=== PATIENT | female | born 1995 | race Caucasian/White ===

== ENCOUNTER 2022-04-10 19:52 | Emergency (ER) | payer MEDICAID, SELFPAY ==
[2022-04-10 20:03] VITALS: BP 109/79; PULSE 123; RESP 17; TEMP 37.4; O2SAT 97; BMI 30.4
[2022-04-10 20:17] LABS: Influenza A by IFA positive (Negative); Influenza B by IFA negative (Negative)
--- NOTE | 2022-04-10 20:23 | XRR_ITS ---
PROCEDURE INFORMATION: Exam: XR Chest Exam date and time: 04/10/2022 8:28 PM Age: 27 years old Clinical indication: Fever TECHNIQUE: Imaging protocol: Radiologic exam of the chest. Views: 1 view. COMPARISON: No relevant prior studies available. FINDINGS: Lungs: There is a 8 mm nodular opacity in the right mid lung, possibly calcified granuloma from its density. No focal consolidation is identified. There is no pulmonary vascular congestion. Pleural spaces: Unremarkable. No pleural effusion. No pneumothorax. Heart/Mediastinum: Heart is within normal limits. Bones/joints: Unremarkable. XR/XR chest 1V portable [id number] IMPRESSION: Question of small pulmonary nodule or granuloma in the right lung. No acute infiltrate.
[2022-04-10 20:30] LABS: SARS Covid-2 Antigen negative (Negative)
--- NOTE | 2022-04-10 20:39 | W.ED.GENADLT ---
HPI - General Adult General: Chief complaint: General Medical Stated complaint: Cough\Fever Time Seen by Provider: 04/10/22 20:18 Source: patient Mode of arrival: ambulatory Limitations: no limitations History of Present Illness: 27-year-old female states over the last 3 days she been having cough congestion along with fevers and body aches. She denies any shortness of breath denies any worsening proving factors. She had no vomiting or diarrhea denies any known sick contacts. Associated symptoms: Deny chest pain, headache(s), nausea, rash or vomiting Review of Systems Const: Reports: fever(s), chills and body aches Eyes: Denies: blurry vision or eye discomfort ENMT: Denies: throat pain or dental pain Card: Denies: chest pain Resp: Reports: non-productive cough GI: Denies: abdominal pain, nausea, vomiting or diarrhea : Denies: dysuria Musc: Denies: neck pain or back pain Skin/Breast: Denies: rash Neuro: Denies: headache(s) Psych: Denies: depression Moise/Lymph: Denies: easy bruising All/Imm: Denies: urticaria PFSH ED PFSH: Medical History (Updated 04/10/22 @ 20:41 by Peña Aguilar MD) No pertinent past medical history Social History (Updated 04/10/22 @ 20:41 by Peña Aguilar MD) Substance/Drug Use: never Female Reproductive History: Date of last menstrual period: 04/10/22 Physical Exam Const: COMMON NORMALS: no acute distress, patient oriented x3 and healthy appearing HENMT: COMMON NORMALS: normocephalic and atraumatic HEAD & SCALP: normocephalic and atraumatic Eye: COMMON NORMALS: Equal, round and reactive pupils present and EOMs intact bilaterally PUPIL: Yes Equal, round and reactive pupils present Neck/C-Spine: COMMON NORMALS: full ROM and supple Chest: COMMONS NORMALS: normal inspection of the chest and normal palpation of entire chest wall Resp: COMMON NORMALS: normal respiratory effort, No retractions, No use of accessory muscles and clear to auscultation bilaterally AUSCULTATION: clear to auscultation bilaterally Cardio: COMMON NORMALS: regular rate, regular rhythm and No murmurs present (Cardio) RATE: regular rate RHYTHM: regular rhythm GI: COMMON NORMALS: Normal to inspection, nondistended, normoactive bowel sounds present, Soft to palpation, non-tender and no masses PALPATION: Yes Soft to palpation Extremity: COMMON NORMALS: normal to inspection and full ROM Neuro: COMMON NORMALS: patient oriented x3, moves all extremities and no focal motor deficits Psych: COMMON NORMALS: mental status grossly normal, Normal thought process present and cooperative THOUGHT PROCESS: Normal thought process present Skin: COMMON NORMALS: no rashes or lesions noted and no wounds GENERAL SKIN EXAM: no rashes or lesions noted Course Vital Signs: Vital signs: Vital Signs Temperature 99.4 F 04/10/22 20:03 Pulse Rate 123 H 04/10/22 20:03 Respiratory Rate 17 04/10/22 20:03 Blood Pressure 109/79 04/10/22 20:03 Pulse Oximetry 97 04/10/22 20:03 Oxygen Delivery Me thod 04/10/22 20:03 MDM - General Adult Medical Decision Making Patient presents with cough along with fever and body aches she is positive for flu a likely causing her symptoms x-ray shows no pneumonia she is well-appearing here she is stable for discharge she is to follow-up with PCP and return if worsening. Lab Data Laboratory Results Influenza Type A Ag positive (Negative) 04/10/22 20:08 Influenza Type B Ag negative (Negative) 04/10/22 20:08 SARS-CoV-2 Ag (Rapid) negative (Negative) 04/10/22 20:08 Discharge Plan Discharge Patient Disposition: Home Clinical Impression: Influenza A Condition: Stable Prescriptions: New oseltamivir [Tamiflu] 75 mg capsule 75 mg PO BID 5 Days Qty: 10 0RF Discharge Orders: Discharge ED (Routine); Ordered 04/10/22 Ordered By: Peña Aguilar Discharge Diet: Advance as tolerated Discharge Activity: Resume usual activity Patient Instructions: Influenza (ED) Coding Level of Care Code ED Twister Frame Tender for Doni Cazares
[2022-04-10] MEDS: acetaminophen 500 mg Tablet 1000 MG PO (20:48)
== END 2022-04-10 20:56 | disposition home or self-care (01) ==
PROVIDERS: Emergency Provider Emergency Medicine
DX: J10.1 Influenza due to other identified influenza virus with other respiratory manifestations (principal); Z20.822 Contact with and (suspected) exposure to COVID-19
CPT/HCPCS: 71045; 87426; 87804; 99283

== ENCOUNTER 2022-04-20 02:27 | Emergency (ER) | payer MEDICAID, SELFPAY ==
[2022-04-20 02:31] VITALS: BP 93/62; PULSE 117; RESP 18; TEMP 37.1; O2SAT 97; BMI 30.6
[2022-04-20 02:52] VITALS: BP 106/78; PULSE 98; RESP 18; O2SAT 97
--- NOTE | 2022-04-20 02:54 | XRR_ITS ---
PROCEDURE INFORMATION: Exam: XR Chest Exam date and time: 04/20/2022 2:58 AM Age: 27 years old Clinical indication: Patient HX: Diagnosed with flu one week ago. C/O of persistent dry cough. ; Additional info: Left-sided chest pain cough TECHNIQUE: Imaging protocol: Radiologic exam of the chest. Views: 1 view. COMPARISON: CR (CHEST, ) 04/10/2022 8:28 PM FINDINGS: Lungs: Normal lung volumes. No interstitial or airspace opacities. Unchanged right mid lung zone peripheral 1 x 1 cm nodule is seen, which may represent a granuloma. Chest CT may be performed for complete assessment. Pleural spaces: No pleural effusion. No pneumothorax. Heart/Mediastinum: Normal heart size. Normal mediastinal contour. Midline trachea. Bones/joints: No acute abnormalities. XR/XR chest 1V portable [id number] IMPRESSION: 1. No confluent infiltrates in the lungs. 2. Unchanged right mid lung zone peripheral 1 x 1 cm nodule, which may represent a granuloma. Chest CT may be performed for complete assessment.
--- NOTE | 2022-04-20 02:58 | ED_ITS ---
HPI - URI/Sore Throat General: Chief Complaint: General Medical Stated Complaint: Cough, Congestion, Time Seen by Provider: 04/20/22 02:38 Source: patient History of Present Illness: 27-year-old female diagnosed with the flu 7 days ago she was prescribed Tamiflu, but was unable to fill it due to unavailability. She has been taking some cough medicine without much improvement. She has coughing fits that last several minutes at a time. Cough is mostly dry. She is experiencing some left-sided chest discomfort now. No continued fever. Some continued sore throat. MD elicited complaint: cough, sore throat and rhinorrhea Pertinent past history: other Onset (ago): day(s) Consistency: constant Severity: moderate Description of mucous: clear Exacerbating factors: deep breaths Relieving factors: OTC cold medicine Associated symptoms: Reports chest pain (left sided with cough), congestion, cough, nausea, rhinorrhea and sore throat; Deny abdominal pain, change in voice, fever(s), headache(s), sinus pain or vomiting Treatments prior to arrival: cold medicine Review of Systems Const: Denies: fever(s) Eyes: Denies: change in vision ENMT: Reports: throat pain; Denies: sinus pain Card: Reports: chest pain (left sided with cough) Resp: Reports: dyspnea and non-productive cough GI: Reports: nausea; Denies: abdominal pain or vomiting Neuro: Denies: headache(s) PFS ED PFSH: Medical History No pertinent past medical history Female Reproductive History: Date of last menstrual period: 04/01/22 Physical Exam Const: COMMON NORMALS: no acute distress GENERAL APPEARANCE: cooperative; not ill appearing and not frail appearing HENMT: COMMON NORMALS: normocephalic, atraumatic, TM's normal bilaterally and Normal external nose present HEAD & SCALP: normocephalic and atraumatic FACE & SINUS: normal facial exam and face symmetric NOSE: Normal external nose present TYMPANIC MEMBRANE: TM's normal bilaterally THROAT: posterior oropharynx abnormal edema and erythema; no cobblstoning and no exudates Eye: COMMON NORMALS: Equal, round and reactive pupils present and EOMs intact bilaterally PUPIL: Yes Equal, round and reactive pupils present Neck/C-Spine: GENERAL: Yes trachea midline Chest: CHEST: Yes Symmetrical chest wall rise Resp: COMMON NORMALS: normal respiratory effort, No retractions, No use of accessory muscles and clear to auscultation bilaterally EFFORT & INSPECTION: Yes Actively coughing AUSCULTATION: clear to auscultation bilaterally Cardio: COMMON NORMALS: regular rate and regular rhythm RATE: regular rate RHYTHM: regular rhythm GI: COMMON NORMALS: Normal to inspection, nondistended, normoactive bowel sounds present Extremity: COMMON NORMALS: no pedal edema Neuro: NILSON COMA SCALE: document GCS findings [place] coma scale eye opening: Spontaneous [place] coma scale verbal response: Orientated [place] coma scale motor response: Obey commands [place] coma scale total score: 15 SENSORY EXAM: Yes extremities (intact) Psych: COMMON NORMALS: speech normal SPEECH: Yes normal speech Skin: COMMON NORMALS: no rashes or lesions noted GENERAL SKIN EXAM: no rashes or lesions noted Course Vital Signs: Vital signs: Vital Signs Temperature 98.6 F 04/20/22 04:07 Pulse Rate 99 04/20/22 04:07 Respiratory Rate 16 04/20/22 04:07 Blood Pressure 100/63 04/20/22 04:07 Pulse Oximetry 96 04/20/22 04:07 Oxygen Delivery Me thod 04/20/22 02:52 MDM - URI/Sore Throat Medical Decision Making Chest x-ray is clear. She is afebrile here. She experiences frequent and prolonged shallow coughing spells, which could be related to bronchitis although more likely upper airway irritation versus a more functional cause. She will be prescribed codeine guaifenesin, as well as 48 hours of chlorpromazine for cough suppression. She is given dexamethasone here for airway irritation. She is also dispensed an inhaler. Discharge Plan Discharge Patient Disposition: Home Clinical Impression: Upper respiratory infection, Acute bronchitis Condition: Stable Prescriptions: New codeine-guaifenesin 10-100 mg/5 mL liquid 5 ml PO Q4H PRN (Reason: cough) Qty: 120 0RF chlorpromazine 25 mg tablet 25 mg PO TID Qty: 10 0RF Discharge Orders: Discharge ED (Routine); Ordered 04/20/22 Ordered By: Wade Eagle Patient Instructions: Upper Respiratory Infection (ED), Acute Bronchitis (ED) Activity Restrictions/Additional Instructions: You may take the cough syrup you are prescribed as needed for cough. Take the chlorpromazine you were prescribed schedule III times a day for the next 48 hours. It will help suppress your cough as well. Do not take your first doses while working until you know how it will affect you. The steroid you were given should begin to work in 12 hours or so. It would last for 4 days. Return for worsening shortness of breath despite treatment. Return for any other concerning symptoms. Coding Level of Care Code ED Elastic Yarn Twister Helper for Doni Fwema Exam Comprehensive
[2022-04-20] MEDS: dexamethasone 4 mg Tablet 10 MG PO (03:03)
[2022-04-20] MEDS: guaiFENesin-codeine UDC 10 mL PO (03:03)
[2022-04-20] MEDS: albuterol 8 gm MDI 2 PUFF INHALATION (03:20)
[2022-04-20 03:40] VITALS: PULSE 80; RESP 16; O2SAT 96
[2022-04-20 04:07] VITALS: BP 100/63; PULSE 99; RESP 16; TEMP 37; O2SAT 96
== END 2022-04-20 04:10 | disposition home or self-care (01) ==
PROVIDERS: Emergency Provider Emergency Medicine
DX: J06.9 Acute upper respiratory infection, unspecified (principal); J20.9 Acute bronchitis, unspecified
CPT/HCPCS: 71045; 94640; 99283; J3535; J8540

== ENCOUNTER 2022-08-16 00:05 | Emergency (ER) | payer MEDICAID, SELFPAY ==
[2022-08-16 00:30] VITALS: BMI 30.1
[2022-08-16 00:32] VITALS: BP 114/74; PULSE 98; RESP 16; TEMP 36.7; O2SAT 96
--- NOTE | 2022-08-16 00:49 | ED_ITS ---
HPI - URI/Sore Throat General: Chief Complaint: Upper Respiratory Infection Stated Complaint: cough, congestion Time Seen by Provider: 08/16/22 00:14 History of Present Illness: Patient is in today for cough. She reports that over the past 3 weeks she has had an intermittent dry cough. She reports that she does not feel bad. She reports that occasionally she gets nasal congestion and drainage. She denies any fever, chills, nausea, vomiting. She reports that she had this a couple of months ago and it feels very similar to the bronchitis that she had after the flu. She denies any possibility of . Associated symptoms: Reports nasal congestion; Deny abdominal pain, chills, chest pain, fever(s), headache(s), nausea or vomiting Review of Systems Const: Denies: fever(s), chills or body aches Eyes: Denies: change in vision or blurry vision ENMT: Reports: nasal discharge and nasal congestion; Denies: throat pain Card: Denies: chest pain, palpitations, irregular heart rhythm, lightheadedness or syncope Resp: Reports: non-productive cough; Denies: dyspnea, productive cough or wheezing GI: Denies: abdominal pain, nausea or vomiting : Denies: flank pain, difficulty voiding, dysuria, urinary frequency, urinary urgency or urinary hesitancy Musc: Denies: neck pain or back pain Neuro: Denies: headache(s), numbness in extremities or weakness in extremities [facility] ED PFSH: Medical History No pertinent past medical history Female Reproductive History: Date of last menstrual period: 08/16/22 Physical Exam Const: COMMON NORMALS: no acute distress, patient oriented x3 and alert GENERAL APPEARANCE: cooperative ORIENTATION/CONSCIOUSNESS: Yes awake, Yes oriented to person, Yes oriented to place and Yes oriented to time HENMT: COMMON NORMALS: EAC's normal and TM's normal bilaterally EXTERNAL AUDITORY CANAL: EAC's normal TYMPANIC MEMBRANE: TM's normal bilaterally MOUTH: Normal oral and palatal mucosa present THROAT: posterior oropharynx normal and postnasal drainage Eye: COMMON NORMALS: Equal, round and reactive pupils present, EOMs intact bilaterally and conjunctivae normal GENERAL EYE: appearance normal, both eyes and all related structures ALIGNMENT: Yes alignment normal CONJUNCTIVA: Yes conjunctivae normal SCLERA: sclerae normal PUPIL: Yes Equal, round and reactive pupils present Neck/C-Spine: COMMON NORMALS: full ROM Resp: COMMON NORMALS: normal respiratory effort, No retractions, No use of accessory muscles and clear to auscultation bilaterally EFFORT & INSPECTION: Yes symmetric chest movement AUSCULTATION: clear to auscultation bilaterally Cardio: COMMON NORMALS: regular rate, regular rhythm, S1 normal heart sound present and S2 normal heart sound present RATE: regular rate RHYTHM: regular rhythm HEART SOUNDS: S1 normal heart sound present and S2 normal heart sound present GI: COMMON NORMALS: Normal to inspection, nondistended, normoactive bowel sounds present, Soft to palpation, non-tender, No hepatosplenomegaly present, no masses and no bruits INSPECTION: Yes normal to inspection PALPATION: Yes Soft to palpation and Yes No hepatosplenomegaly present : COMMON NORMALS: Yes no CVA tenderness BLADDER/KIDNEY EXAM: Yes no CVA tenderness Back/Pelvis: COMMON NORMALS: no CVA tenderness Neuro: COMMON NORMALS: patient oriented x3 SENSORIUM/ORIENTATION: Yes alert, Yes oriented to person, Yes oriented to place and Yes oriented to time Psych: COMMON NORMALS: cooperative Course Vital Signs: Vital signs: Vital Signs Temperature 98.0 F 08/16/22 00:32 Pulse Rate 98 08/16/22 00:32 Respiratory Rate 16 08/16/22 00:32 Blood Pressure 114/74 08/16/22 00:32 Pulse Oximetry 96 08/16/22 00:32 Oxygen Delivery Me thod 08/16/22 00:32 MDM - URI/Sore Throat Medical Decision Making Patient is in today for intermittent dry cough x3 weeks. Patient reports that she is having off-and-on nasal congestion and drainage. She denies any systemic symptoms including fever, chills, nausea, vomiting. The other ER doctor had ordered chest x-ray, COVID and flu testing while patient was in the waiting room. However; once I saw the patient I discussed those test with her and she does not wish to have all of that done today. I agree. Her exam is benign. Orders were canceled. Patient's physical exam is benign with the exception of moderate postnasal drainage. We will treat patient to cover for allergic rhinitis with steroid injection. Advised patient to use uibw-xat-yrbelip Claritin or Zyrtec with Flonase to help control postnasal drainage and nasal allergies. Patient verbalizes understanding and agreement with plan of care. All questions answered to satisfaction. Follow-up with primary care provider as needed. Return to the ER for new or worsening symptoms. Discharge Plan Discharge Patient Disposition: Home Clinical Impression: Allergic rhinitis, Cough Condition: Stable Prescriptions: No Action codeine-guaifenesin 10-100 mg/5 mL liquid 5 ml PO Q4H PRN (Reason: cough) Qty: 120 0RF chlorpromazine 25 mg tablet 25 mg PO TID Qty: 10 0RF Discharge Orders: Discharge ED (Routine); Ordered 08/16/22 Ordered By: Ching Emerson Discharge Diet: Usual diet Discharge Activity: Resume usual activity Patient Instructions: Allergies (ED), Postnasal Drip (DC) Activity Restrictions/Additional Instructions: I recommend taking kjyg-jdi-autizrk Claritin or Zyrtec to help control postnasal drainage. Steroid injection given today to help control allergic rhinitis which is feeding your cough. Make sure that you are drinking plenty of water and staying well-hydrated. Avoid smoking or being around secondhand smoke. Follow- up with primary care provider as needed. Return to the ER for any new or worsening symptoms. Coding Level of Care Code ED Power Superintendent for Doni Cazares
[2022-08-16] MEDS: methylPREDNISolone (DEPO) 40 mg/mL INJ 1 mL IM (01:34)
[2022-08-16] MEDS: dexamethasone 10 mg/mL INJ 4 MG IM (01:34)
[2022-08-16 02:20] VITALS: BP 111/70; PULSE 98; RESP 14; O2SAT 100
--- NOTE | 2022-08-27 13:42 | DCPLANNER ---
slots manager was triggered that patient does not have a primary care physician - patient will be establishing with Dr. Garcia at [facility]
== END 2022-08-16 01:50 | disposition home or self-care (01) ==
PROVIDERS: Emergency Provider Nurse Practitioner Family; PCP Family Medicine
DX: J30.9 Allergic rhinitis, unspecified (principal); R05.9 Cough, unspecified
CPT/HCPCS: 96372; 99284; J1030; J1100

== ENCOUNTER → 2022-12-03 10:30 | Outpatient (BNVA) | payer MEDICAID, SELFPAY | PROVIDERS: PCP Family Medicine; Visit Provider Obstetrics & Gynecology | DX: Z12.4 Encounter for screening for malignant neoplasm of cervix (principal) | CPT/HCPCS: 88175 ==

== ENCOUNTER → 2022-12-10 15:28 | Outpatient (BNVA) | payer MEDICAID, SELFPAY | PROVIDERS: PCP Family Medicine; Visit Provider Obstetrics & Gynecology | DX: Z30.9 Encounter for contraceptive management, unspecified (principal) | CPT/HCPCS: 81025 ==

== ENCOUNTER 2023-01-20 19:14 | Emergency (ER) | payer OTHER, MEDICAID, SELFPAY ==
[2023-01-20 19:35] VITALS: BP 99/70; PULSE 97; RESP 16; TEMP 36.9; O2SAT 97; BMI 32.9
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
[2023-01-20 20:47] VITALS: RESP 18
--- NOTE | 2023-01-23 09:49 | DCPLANNER ---
manager disaster recovery called patient due to no primary care physician - no answer at this time, a voicemail was left for patient to return case resolution specialist phone call.
== END 2023-01-20 20:47 | disposition home or self-care (01) ==
PROVIDERS: Emergency Provider Nurse Practitioner Family
DX: S16.1XXA Strain of muscle, fascia and tendon at neck level, initial encounter (principal); S50.01XA Contusion of right elbow, initial encounter; V53.5XXA Driver of pick-up truck or van injured in collision with car, pick-up truck or van in traffic accident, initial encounter
CPT/HCPCS: 71045; 72125; 73080; 73562; 99284

== ENCOUNTER 2024-03-08 18:08 | Emergency (ER) | payer MEDICAID, SELFPAY ==
[2024-03-08 18:16] VITALS: BP 106/73; PULSE 108; RESP 16; TEMP 37.1; O2SAT 98
[2024-03-08 18:33] LABS: Rapid Strep A Test Positive (Negative)
--- NOTE | 2024-03-08 18:54 | ED_ITS ---
HPI - URI/Sore Throat General: Chief Complaint: Upper Respiratory Infection Stated Complaint: Sore throat Time Seen by Provider: 03/08/24 18:39 Source: patient Mode of arrival: ambulatory Limitations: no limitations History of Present Illness: 28-year-old female who states that she h as had a sore throat for last 2 days and worsened today states her tonsils swelling she has noticed a pus pocket she has painful swallowing she rates her pain a 7 out of 10 currently she is able handle secretions denies any fever denies any cough. Associated symptoms: Deny abdominal pain, chills, chest pain, diarrhea, fever(s), headache(s), nausea or vomiting Related Data Home Medications Medication Instructions Recorded Confirmed bupropion HCl 300 mg 24 hr tablet, 300 mg PO QAM 04/20/23 04/20/23 extended release buspirone 10 mg tablet 10 mg PO TID 04/20/23 04/20/23 Previous Rx's Medication Instructions Recorded ibuprofen 600 mg tablet 600 mg PO Q8H PRN pain #60 tabs 04/20/23 amoxicillin 875 mg tablet 875 mg PO Q12H #14 tabs 03/08/24 Allergies Allergy/AdvReac Type Severity Reaction Status Date / Time No Known Allergies Allergy Verified 03/08/24 18:19 Review of Systems Const: Denies: fever(s), chills, body aches or change in appetite ENMT: Reports: throat pain; Denies: dental pain Card: Denies: chest pain Resp: Denies: dyspnea GI: Denies: abdominal pain, nausea, vomiting or diarrhea Musc: Denies: neck pain or back pain Skin/Breast: Denies: rash Neuro: Denies: headache(s) PFSH ED PFSH: Medical History No pertinent past medical history Family History Mother Hypertension Thyroid disease Diabetes Denies family history of Colon cancer Ovarian cancer Heart disease Hyperlipidemia Breast cancer Uterine cancer Stroke Social History Substance/Drug Use: never Physical Exam Const: COMMON NORMALS: no acute distress, patient oriented x3 and healthy appearing HENMT: COMMON NORMALS: normocephalic and atraumatic HEAD & SCALP: normocephalic and atraumatic OTHER: Tonsil liver erythema with pus pockets able to handle secretions no signs of peritonsillar abscess no uvular deviation Eye: COMMON NORMALS: conjunctivae normal CONJUNCTIVA: Yes conjunctivae normal Neck/C-Spine: COMMON NORMALS: full ROM and supple Chest: COMMONS NORMALS: normal inspection of the chest Resp: COMMON NORMALS: normal respiratory effort Cardio: COMMON NORMALS: regular rate RATE: regular rate Extremity: COMMON NORMALS: normal to inspection and full ROM Neuro: COMMON NORMALS: patient oriented x3, moves all extremities and no focal motor deficits Psych: COMMON NORMALS: mental status grossly normal, Normal thought process present and cooperative THOUGHT PROCESS: Normal thought process present Skin: COMMON NORMALS: no rashes or lesions noted and no wounds GENERAL SKIN EXAM: no rashes or lesions noted Course Vital Signs: Vital signs: Vital Signs Temperature 98.8 F 03/08/24 18:16 Pulse Rate 108 H 03/08/24 18:16 Respiratory Rate 16 03/08/24 18:16 Blood Pressure 106/73 03/08/24 18:16 Pulse Oximetry 98 03/08/24 18:16 MDM - URI/Sore Throat Medical Decision Making Patient presents here with strep throat did give her Decadron here we will prescribe antibiotics she is stable for discharge follow-up with PCP return if worsening. Medical Records I reviewed the patient's medical records. Lab Data I reviewed the patient's lab results. Laboratory Results Group A Strep Rapid Positive (Negative) H 03/08/24 18:20 No radiology studies performed this visit Discharge Plan Discharge Patient Disposition: Home Clinical Impression: Strep pharyngitis Condition: Stable Prescriptions: New amoxicillin 875 mg tablet 875 mg PO Q12H Qty: 14 0RF No Action buspirone 10 mg tablet 10 mg PO TID bupropion HCl 300 mg tablet extended release 24 hr 300 mg PO QAM ibuprofen 600 mg tablet 600 mg PO Q8H PRN (Reason: pain) Qty: 60 0RF Discharge Orders: Discharge ED (Routine); Ordered 03/08/24 Ordered By: Peña Aguilar Referrals: Joseph Archuleta MD [Primary Care Provider] - 4-7 days Discharge Diet: Advance as tolerated Discharge Activity: Resume usual activity Patient Instructions: Strep Throat (ED) Coding Level of Care Code ED Warning Analyst for Doni Cazares
[2024-03-08] MEDS: dexamethasone 10 mg/mL INJ IM (19:09)
[2024-03-08] MEDS: amoxicillin 500 mg Capsule PO (19:09)
[2024-03-08] MEDS: ketorolac 60 mg/2 mL INJ IM (19:12)
[2024-03-08 19:16] VITALS: BP 111/71; PULSE 96; O2SAT 99
[2024-03-08 19:39] VITALS: BP 113/73; PULSE 107; O2SAT 100
== END 2024-03-08 19:35 | disposition home or self-care (01) ==
PROVIDERS: Emergency Provider Emergency Medicine; PCP Family Medicine
DX: J02.0 Streptococcal pharyngitis (principal)
CPT/HCPCS: 87880; 96372; 99284; J1100; J1885

== ENCOUNTER 2024-04-03 17:34 | Emergency (ER) | payer MEDICAID, SELFPAY ==
[2024-04-03 17:47] VITALS: BP 114/80; PULSE 109; RESP 14; TEMP 37.1; O2SAT 98; BMI 31.8
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
--- NOTE | 2024-04-03 18:33 | USR_ITS ---
PROCEDURE INFORMATION: Exam: US Pelvis, Transvaginal, Non-Obstetric Exam date and time: 04/03/2024 7:31 PM Age: 29 years old Clinical indication: Pelvic pain; Prior surgery; Surgery date: 6+ months; Surgery type: Unsure of dates. Patient has had a c section; Additional info: Llq pain. TECHNIQUE: Imaging protocol: Real-time transvaginal pelvic (non-obstetric) ultrasound with image documentation. Transvaginal imaging was used for better evaluation of the endometrium, adnexa, and/or cervix. COMPARISON: No relevant prior studies available. FINDINGS: Uterus: Uterus is normal. Endometrial stripe is normal. Uterus measures 9.1 x 5.2 x 4.6 cm. Endometrial stripe measures 0.9 cm. Right ovary/adnexa: Normal. No mass. Normal ovarian blood flow on color Doppler. Right ovary measures 1.9 x 2.2 x 2.8 cm (5.9 mL). Left ovary/adnexa: Normal. No mass. Normal ovarian blood flow on color Doppler. Left ovary measures 2.8 x 2.2 x 2.8 cm (8.9 mL). Simple appearing cystic structure in the left ovary measuring up to 1.5 cm, likely a dominant follicle. Urinary bladder: Urinary bladder is limited. Intraperitoneal space: Trace free fluid in the cul-de-sac. US/US transvaginal [id number] IMPRESSION: No acute findings.
[2024-04-03 18:49] LABS: Bilirubin Urine Negative (Negative); Blood Urine Negative (Negative); Glucose Urine UA Negative (Normal); Ketones Urine Negative (Negative); Leukocyte Esterase Urine 2+ (Negative); Nitrate Urine Negative (Negative); Protein Urine Negative (Negative); Specific Gravity, Urine 1.024 (1.005-1.030); Urine Appearance Cloudy (CLEAR); Urine Color Yellow (Yellow)
[2024-04-03 18:54] LABS: Add Urine Microscopic? YES; Bacteria Urine 1+ /hpf; Hyaline Casts Urine 1.21 /lpf; RBC Urine 0-2 /hpf (0-2); Squamous Epithelial Cell Urine 21-50 /hpf (0-5)
[2024-04-03 19:23] LABS: Basophils % 0.2 %; Eosinophils # 0.2 10^3/uL (0.0-0.8); Eosinophils % 1.4 %; Hematocrit 42.1 % (36-47); Lymphocytes % 16.3 %; Mean Corpuscular HGB Conc 31.6 g/dL (30-55); Mean Corpuscular Hemoglobin 27.5 pg (27-33); Mean Corpuscular Volume 87.2 fl (85-98); Mean Platelet Volume 9.3 fL (7.4-10.4); Monocytes # 0.6 10^3/uL (0.2-0.9); Monocytes % 4.6 %; Neutrophils % 77.2 %; Nucleated Red Blood Cells % 0 %; Platelet Count 299 10^3/cmm (157-399); Red Blood Count 4.83 10^6/uL (3.85-5.65); Red Cell Distribution Width 13.3 % (12.1-15.1); White Blood Count 12.06 10^3/uL (3.29-11.43)
[2024-04-03 19:31] LABS: HCG, Serum Qual Negative (Negative)
[2024-04-03] MEDS: cefTRIAXone 1,000 mg SDV 1000 MG IVP (19:34)
[2024-04-03 19:35] VITALS: RESP 16; O2SAT 99
[2024-04-03] MEDS: ondansetron 2 mg/ML SDV 2 mL 4 MG IVP (19:35)
[2024-04-03] MEDS: morphine 4 mg/mL SDV 1 mL IVP (19:35)
[2024-04-03 19:39] LABS: Alanine Aminotransferase 13 U/L (0-33); Albumin Level 4.3 g/dL (3.5-5.2); Alkaline Phosphatase 77 U/L (35-105); Anion Gap 17.1 (5-19); Aspartate Amino Transferase 21 U/L (0-32); Blood Urea Nitrogen 10 mg/dL (6-20); C Reactive Protein 54.3 mg/L (0.0-4.9); Calcium 9.5 mg/dL (8.5-10.5); Carbon Dioxide 23 mmol/L (22-29); Chloride 103 mmol/L (98-107); Globulin 4.1 g/dL (1.3-4.6); Glomerular Filtration Rate 119.9 mL/min (90-130); Glucose 100 mg/dL (65-115); Lipase 29 U/L (13-60); Osmolality Calculated 287 mOsm/kg (285-295); Potassium 4.1 mmol/L (3.5-5.1); Sodium 139 mmol/L (136-145); Total Bilirubin 0.3 mg/dL (0.15-1.2); Total Protein 8.4 g/dL (6.6-8.7)
[2024-04-03 20:35] VITALS: BP 107/73; PULSE 101; RESP 16; O2SAT 98
== END 2024-04-03 20:34 | disposition home or self-care (01) ==
PROVIDERS: Emergency Provider Emergency Medicine; PCP Family Medicine
DX: N39.0 Urinary tract infection, site not specified (principal); Z87.891 Personal history of nicotine dependence
CPT/HCPCS: 76830; 80053; 81001; 83690; 84703; 85025; 86140; 96374; 96375; 99285; J0696; J2270; J2405

== ENCOUNTER 2024-09-23 17:33 | Emergency (ER) | payer MEDICAID, SELFPAY ==
[2024-09-23 17:43] VITALS: BP 118/72; PULSE 86; RESP 17; TEMP 36.8; O2SAT 99; BMI 33.1
[2024-09-23 19:36] LABS: Basophils % 0.3 %; Eosinophils # 0.2 10^3/uL (0.0-0.8); Eosinophils % 2.1 %; Hematocrit 39.1 % (36-47); Lymphocytes # 2.7 10^3/uL (0.8-4.8); Lymphocytes % 25.1 %; Mean Corpuscular HGB Conc 32.2 g/dL (30-55); Mean Corpuscular Hemoglobin 27.8 pg (27-33); Mean Corpuscular Volume 86.3 fl (85-98); Mean Platelet Volume 9.4 fL (7.4-10.4); Monocytes # 0.5 10^3/uL (0.2-0.9); Neutrophils # 7.18 10^3/uL (1.8-7.7); Neutrophils % 66.9 %; Nucleated Red Blood Cells % 0 %; Platelet Count 327 10^3/cmm (157-399); Red Blood Count 4.53 10^6/uL (3.85-5.65); Red Cell Distribution Width 14.5 % (12.1-15.1); White Blood Count 10.72 10^3/uL (3.29-11.43)
[2024-09-23 19:50] LABS: HCG, Serum Qual Positive (Negative)
[2024-09-23 19:54] LABS: Alanine Aminotransferase 18 U/L (0-33); Albumin Level 4.2 g/dL (3.5-5.2); Alkaline Phosphatase 51 U/L (35-105); Anion Gap 18.3 (5-19); Aspartate Amino Transferase 14 U/L (0-32); Blood Urea Nitrogen 6 mg/dL (6-20); Calcium 8.9 mg/dL (8.5-10.5); Carbon Dioxide 21 mmol/L (22-29); Chloride 104 mmol/L (98-107); Creatinine Clr Calc Pharmacy 174.4076; Glucose 83 mg/dL (65-115); Osmolality Calculated 287 mOsm/kg (285-295); Potassium 3.3 mmol/L (3.5-5.1); Sodium 140 mmol/L (136-145); Total Bilirubin 0.2 mg/dL (0.15-1.2); Total Protein 7.2 g/dL (6.6-8.7)
[2024-09-23 20:12] VITALS: BP 114/70; PULSE 84; RESP 16; O2SAT 96
--- NOTE | 2024-09-23 20:22 | USR_ITS ---
PROCEDURE INFORMATION: Exam: US First Trimester, Transabdominal and US , Transvaginal Exam date and time: 09/23/2024 9:27 PM Age: 29 years old Clinical indication: Lmp or gestational age (in weeks): 5w 3d by lmp; Antepartum complications; Bleeding; ; G5-p3-a1-l3 with spotting today; Additional info: Vaginal bleeding LABS AND CLINICAL REPORTS: Choriogonadotropin in serum (Serum HCG): 1484 mIU/mL Last menstrual period start date: 08/16/2024 Gestational age (Established): 5 w 3 d Estimated due date (Established): 05/23/2025 TECHNIQUE: Imaging protocol: Real-time transabdominal obstetrical ultrasound of the maternal pelvis and a first trimester , less than 14 weeks 0 days, with image documentation. Transvaginal imaging was used for better evaluation of the fetus, adnexa, and/or cervix. COMPARISON: US transvaginal [id number] 04/03/2024 7:31 PM FINDINGS: GESTATION: Gestation: Intrauterine gestation is visualized. No pole is visualized. No yolk sac is visualized. Embryo/ cardiac activity (BPM): Not visualized Extra-embryonic membranes/Placenta: Unremarkable. No subchorionic bleed. Amniotic/Chorionic fluid: Amniotic and extra-amniotic fluid are normal for gestational age. BIOMETRY: Gestational age (AUA): 5 w 1 d Estimated due date (AUA): 05/25/2025 Mean sac diameter: 0.42 cm. EGA (MSD) is 5 w 1 d MATERNAL: Uterus: Uterus measures 10.35 cm x 7.64 cm x 6.11 cm. 2.3 mm uterine fibroid. Cervix: Unremarkable. Endocervical canal is closed. Right ovary/adnexa: Right ovary measures 3 cm x 2.7 cm x 1.5 cm. Right ovarian volume is 6.4 mL. Left ovary/adnexa: Left ovary measures 1.9 cm x 2.1 cm x 1.4 cm. Left ovarian volume is 2.9 mL. Intraperitoneal space: No intraperitoneal free fluid. US/US OB <= 14 weeks fetus [id number] IMPRESSION: 1. Single intrauterine gestational sac, negative for pole. 2. Ultrasonographic age of 5 weeks 1 day. 3. 2.3 mm uterine fibroid.
[2024-09-23 21:00] VITALS: BP 96/69; PULSE 86; O2SAT 98
--- NOTE | 2024-09-23 21:00 | W.ED.GENADLT ---
HPI - General Adult General: Chief complaint: Vaginal Bleeding Stated complaint: 6 weeks preg, cramping, spotting Time Seen by Provider: 09/23/24 20:19 Source: patient History of Present Illness: Patient is a female who presents to the ED with cramping and vaginal spotting that started around 11:00-12:00 today. She reports the cramping as dull and achy, occurring intermittently. Patient's last menstrual period started August 16, making her approximately 5 weeks based on LMP. She denies severe pain, and states she is not experiencing significant pain currently. This is her fifth , with a history of three live births. Patient has not yet established care for this . Related Data Home Medications ?Medication ?Instructions ?Recorded ?Confirmed buspirone 10 mg tablet 10 mg PO TID 04/20/23 03/10/24 Previous Rx's ?Medication ?Instructions ?Recorded ibuprofen 600 mg tablet 600 mg PO Q8H PRN pain #60 tabs 04/20/23 aripiprazole 2 mg tablet (Abilify) 2 mg PO DAILY #30 tabs 05/03/24 bupropion HCl 300 mg 24 hr tablet, 300 mg PO QAM #30 tabs 05/03/24 extended release exenatide 5 mcg/dose (250 5 mcg (0.02 mL) SUBCUT BID #1.2 mL 05/14/24 mcg/mL)1.2 mL subcutaneous pen injector (Byetta) nitrofurantoin 100 mg PO BID 7 days #14 caps 09/23/24 monohydrate/macrocrystals 100 mg capsule (Macrobid) Allergies Allergy/AdvReac Type Severity Reaction Status Date / Time No Known Allergies Allergy Verified 05/03/24 09:26 [facility] ED PFS: Medical History (Updated 09/23/24 @ 22:11 by Demetri Bryan MD) Obesity (BMI 30.0-34.9) PTSD (post-traumatic stress disorder) Anxiety and depression No pertinent past medical history Family History (Updated 05/03/24 @ 09:37 by Natalie Dumont NP) Mother Hypertension Thyroid disease Diabetes Father Diabetes Brother Diabetes Denies family history of Colon cancer Ovarian cancer Heart disease Hyperlipidemia Breast cancer Uterine cancer Stroke Social History Smoking and tobacco/nicotine status: current every day tobacco/nicotine user Substance/Drug Use: never Female Reproductive History: Date of last menstrual period: 08/16/24 Physical Exam Const: COMMON NORMALS: no acute distress, average body habitus, alert and well nourished GENERAL APPEARANCE: cooperative ORIENTATION/CONSCIOUSNESS: Yes awake HENMT: COMMON NORMALS: normocephalic and atraumatic HEAD & SCALP: normocephalic and atraumatic Eye: COMMON NORMALS: conjunctivae normal CONJUNCTIVA: Yes conjunctivae normal Neck/C-Spine: GENERAL: Yes normal visual inspection Resp: COMMON NORMALS: normal respiratory effort, No retractions and No use of accessory muscles Cardio: COMMON NORMALS: regular rhythm and Peripheral pulses 2+ throughout RHYTHM: regular rhythm PERIPHERAL PULSES: Peripheral pulses 2+ throughout GI: COMMON NORMALS: Soft to palpation and non-tender PALPATION: Yes Soft to palpation Extremity: COMMON NORMALS: full ROM and no pedal edema Neuro: COMMON NORMALS: no focal motor deficits SENSORIUM/ORIENTATION: Yes alert Skin: COMMON NORMALS: no rashes or lesions noted GENERAL SKIN EXAM: no rashes or lesions noted Course Vital Signs: Vital signs: Vital Signs Temperature 98.2 F 09/23/24 17:43 Pulse Rate 86 09/23/24 21:00 Respiratory Rate 16 09/23/24 20:12 Blood Pressure 96/69 09/23/24 21:00 Pulse Oximetry 98 09/23/24 21:00 Oxygen Delivery Me thod Room Air 09/23/24 21:00 MDM - General Adult Medical Decision Making Review of Systems: Constitutional: Denies fever Gastrointestinal: Denies significant nausea or vomiting Genitourinary: Reports urinary frequency. Denies dysuria Musculoskeletal: Denies severe abdominal pain Medications: 1. vitamins 2. Iron supplements Allergies: No known drug allergies Past Medical History: No significant past medical history reported Past Surgical History: 1. Emergency in 06/2016 for breech presentation 2. Dental surgery 3. 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 Problem List: 1. First trimester vaginal bleeding, 2. Early , 3. Rh status pending Differential Diagnosis: 1. Threatened , 2. Normal early symptoms, 3. Ectopic , 4. Complete ED Course: Patient evaluated for early bleeding. Type and screen obtained to determine Rh status. Pelvic ultrasound ordered for further evaluation. Patient stable with mild symptoms. Assessment and Plan: 1. First Trimester Vaginal Bleeding: - Pelvic ultrasound to confirm intrauterine and assess viability - Type and screen to determine Rh status - Patient counseled about concerning symptoms to watch for 2. Early : - Advised to establish care - Continue current vitamins and iron supplements 3. Disposition: - Pending ultrasound results - Will require Rhogam if Rh negative Patient is Rh+. CBC and CMP are unremarkable. Beta-hCG is only 1500. Formal ultrasound shows appears to be a single intrauterine gestational sac. pole not identified yet. Ultrasonographic age of 5 weeks and 1 days. She does have a 2.3 cm uterine fibroid. Urinalysis with bacteriuria however I do suspect this is more contamination than anything. Given her status so I will go ahead and treat her with 5 days of Keflex. She was given p.o. potassium replacement for some hypokalemia. She will be discharged and recommended follow-up with her PCP/sign builder supervisor for further outpatient evaluation and repeat ultrasound. Lab Data I reviewed the patient's lab results. 09/23/24 19:23 09/23/24 19:23 Radiology Impressions Ultrasound 09/23/24 20:22 IMPRESSION: 1. Single intrauterine gestational sac, negative for pole. 2. Ultrasonographic age of 5 weeks 1 day. 3. 2.3 mm uterine fibroid. Laboratory Results WBC 10.72 10^3/uL (3.29-11.43) 09/23/24 19:23 RBC 4.53 10^6/uL (3.85-5.65) 09/23/24 19:23 Hgb 12.60 g/dL (11.27-16.99) 09/23/24 19:23 Hct 39.1 % (36-47) 09/23/24 19:23 MCV 86.3 fl (85-98) 09/23/24 19:23 MCH 27.8 pg (27-33) 09/23/24 19:23 MCHC 32.2 g/dL (30-55) 09/23/24 19:23 RDW 14.5 % (12.1-15.1) 09/23/24 19:23 Plt Count 327 10^3/cmm (157-399) 09/23/24 19:23 MPV 9.4 fL (7.4-10.4) 09/23/24 19:23 Neut % (Auto) 66.9 % 09/23/24 19:23 Lymph % (Auto) 25.1 % 09/23/24 19:23 [place] % (Auto) 5.0 % 09/23/24 19:23 Eos % (Auto) 2.1 % 09/23/24 19:23 Baso % (Auto) 0.3 % 09/23/24 19:23 Neut # (Auto) 7.18 10^3/uL (1.8-7.7) 09/23/24 19:23 Lymph # (Auto) 2.7 10^3/uL (0.8-4.8) 09/23/24 19:23 [place] # (Auto) 0.5 10^3/uL (0.2-0.9) 09/23/24 19:23 Eos # (Auto) 0.2 10^3/uL (0.0-0.8) 09/23/24 19:23 Baso # (Auto) 0.0 10^3/uL (0.0-0.1) 09/23/24 19:23 Nucleated RBC % (auto) 0 % 09/23/24 19:23 Nucleated RBCs # 0.0 /100WBC 09/23/24 19:23 Sodium 140 mmol/L (136-145) 09/23/24 19:23 Potassium 3.3 mmol/L (3.5-5.1) L 09/23/24 19:23 Chloride 104 mmol/L (98-107) 09/23/24 19:23 Carbon Dioxide 21 mmol/L (22-29) L 09/23/24 19:23 Anion Gap 18.3 (5-19) 09/23/24 19:23 BUN 6 mg/dL (6-20) 09/23/24 19:23 Creatinine 0.5 mg/dL (0.5-0.9) 09/23/24 19:23 GFR Calculation 148.0 mL/min (90-130) H 09/23/24 19:23 Glucose 83 mg/dL (65-115) 09/23/24 19:23 Calculated Osmolality 287 mOsm/kg (285-295) 09/23/24 19:23 Calcium 8.9 mg/dL (8.5-10.5) 09/23/24 19:23 Total Bilirubin 0.2 mg/dL (0.15-1.2) 09/23/24 19:23 AST 14 U/L (0-32) 09/23/24 19:23 ALT 18 U/L (0-33) 09/23/24 19:23 Alkaline Phosphatase 51 U/L (35-105) 09/23/24 19:23 Total Protein 7.2 g/dL (6.6-8.7) 09/23/24 19:23 Albumin 4.2 g/dL (3.5-5.2) 09/23/24 19:23 Globulin 3.0 g/dL (1.3-4.6) 09/23/24 19:23 HCG, Qual Positive (Negative) H 09/23/24 19:23 Ser , Semi-Qnt 1484.00 mIU/mL 09/23/24 19:23 Urine Color Yellow (Yellow) 09/23/24 19:16 Urine Appearance Cloudy (CLEAR) A 09/23/24 19:16 Urine pH 5.5 (5-7) 09/23/24 19:16 Ur Specific [place] 1.026 (1.005-1.030) 09/23/24 19:16 Urine Protein Negative (Negative) 09/23/24 19:16 Urine Glucose (UA) Negative (Normal) 09/23/24 19:16 Urine Ketones Negative (Negative) 09/23/24 19:16 Urine Blood Negative (Negative) 09/23/24 19:16 Urine Nitrate Negative (Negative) 09/23/24 19:16 Urine Bilirubin Negative (Negative) 09/23/24 19:16 Urine Urobilinogen 0.2 mg/dL (Negative) 09/23/24 19:16 Ur Leukocyte Esterase Negative (Negative) 09/23/24 19:16 Urine RBC 0-2 /hpf (0-2) 09/23/24 19:16 Urine WBC 0-5 /hpf (0-5) 09/23/24 19:16 Ur Squamous Epith Cells 21-50 /hpf (0-5) H 09/23/24 19:16 Amorphous Sediment Not Reportable 09/23/24 19:16 Urine Bacteria 4+ /hpf (NONE) H 09/23/24 19:16 Hyaline Casts 0.40 /lpf 09/23/24 19:16 Blood Type A Positive 09/23/24 20:35 Rho(D) Type Rh positive 09/23/24 20:35 All radiology interpretation(s) finalized by discharge Discharge Plan Discharge Patient Disposition: Home Clinical Impression: Threatened , Hypokalemia, Bacteriuria Condition: Stable Prescriptions: New nitrofurantoin monohyd/m-cryst [Macrobid] 100 mg capsule 100 mg PO BID 7 Days Qty: 14 0RF Rx Instructions: must administer with a meal/food No Action buspirone 10 mg tablet 10 mg PO TID ibuprofen 600 mg tablet 600 mg PO Q8H PRN (Reason: pain) Qty: 60 0RF aripiprazole [Abilify] 2 mg tablet 2 mg PO DAILY Qty: 30 0RF bupropion HCl 300 mg tablet extended release 24 hr 300 mg PO QAM Qty: 30 0RF exenatide [Byetta] 5 mcg/dose (250 mcg/mL) 1.2 mL pen injector 5 mcg SUBCUT BID Qty: 1.2 0RF Discharge Orders: Discharge ED (Routine); Ordered 09/23/24 Ordered By: Demetri Bryan Referrals: Natalie Dumont NP [Primary Care Provider, Family Practice] Discharge Diet: Usual diet Patient Instructions: Threatened Miscarriage (ED), Opioid Safety, Pain Management Activity Restrictions/Additional Instructions: Take all medication as directed. Follow-up with your sign builder supervisor for follow-up and repeat ultrasound in 2 to 3 weeks. Return for any new or worsening symptoms or any other concerns. Print Language: Tamazight Coding Level of Care Code ED Aging Department Supervisor for Doni Cazares
[2024-09-23] MEDS: potassium chloride ER 20 mEq Tablet 40 MEQ PO (21:20)
[2024-09-23 21:37] LABS: Bilirubin Urine Negative (Negative); Blood Urine Negative (Negative); Glucose Urine UA Negative (Normal); Ketones Urine Negative (Negative); Leukocyte Esterase Urine Negative (Negative); Nitrate Urine Negative (Negative); Protein Urine Negative (Negative); Specific Gravity, Urine 1.026 (1.005-1.030); Urine Appearance Cloudy (CLEAR); Urine Color Yellow (Yellow); Urobilinogen Urine 0.2 mg/dL (Negative); pH Urine 5.5 (5-7)
[2024-09-23 21:42] LABS: Add Urine Microscopic? YES; Bacteria Urine 4+ /hpf; RBC Urine 0-2 /hpf (0-2); Squamous Epithelial Cell Urine 21-50 /hpf (0-5); WBC Urine 0-5 /hpf (0-5)
[2024-09-23 22:21] VITALS: BP 101/64; PULSE 82; O2SAT 98
== END 2024-09-23 22:22 | disposition home or self-care (01) ==
PROVIDERS: Emergency Provider Student in an Organized Health Care Education/Training Program
DX: O20.0 Threatened abortion (principal); Z3A.01 Less than 8 weeks gestation of pregnancy; E87.6 Hypokalemia; R82.71 Bacteriuria; Z72.0 Tobacco use
CPT/HCPCS: 36415; 76801; 80053; 81001; 84702; 84703; 85025; 86900; 99284; J9999

== ENCOUNTER 2024-10-17 21:14 | Emergency (ER) | payer MEDICAID, SELFPAY ==
[2024-10-17 21:35] VITALS: BP 110/71; PULSE 111; RESP 16; TEMP 36.8; O2SAT 99
[2024-10-17 22:42] VITALS: BP 112/76; PULSE 86; RESP 16; O2SAT 97
[2024-10-17 22:42] LABS: Basophils % 0.4 %; Eosinophils # 0.2 10^3/uL (0.0-0.8); Eosinophils % 2.2 %; Hematocrit 38.4 % (36-47); Lymphocytes # 1.9 10^3/uL (0.8-4.8); Lymphocytes % 27.9 %; Mean Corpuscular HGB Conc 31.8 g/dL (30-55); Mean Corpuscular Hemoglobin 27.5 pg (27-33); Mean Corpuscular Volume 86.5 fl (85-98); Mean Platelet Volume 10.6 fL (7.4-10.4); Monocytes # 0.5 10^3/uL (0.2-0.9); Monocytes % 7.3 %; Neutrophils # 4.18 10^3/uL (1.8-7.7); Neutrophils % 61.9 %; Nucleated Red Blood Cells % 0 %; Platelet Count 241 10^3/cmm (157-399); Red Blood Count 4.44 10^6/uL (3.85-5.65); Red Cell Distribution Width 14.2 % (12.1-15.1); White Blood Count 6.75 10^3/uL (3.29-11.43)
[2024-10-17 23:05] LABS: Bilirubin Urine Negative (Negative); Blood Urine Negative (Negative); Glucose Urine UA Negative (Normal); Ketones Urine Negative (Negative); Leukocyte Esterase Urine Negative (Negative); Nitrate Urine Negative (Negative); Protein Urine Negative (Negative); Specific Gravity, Urine 1.028 (1.005-1.030); Urine Appearance Cloudy (CLEAR); Urine Color Yellow (Yellow); Urobilinogen Urine 0.2 mg/dL (Negative); pH Urine 5.5 (5-7)
[2024-10-17 23:08] LABS: Bacteria Urine 2+ /hpf; Hyaline Casts Urine 0.81 /lpf; Squamous Epithelial Cell Urine 21-50 /hpf (0-5)
[2024-10-17 23:20] LABS: Alanine Aminotransferase 18 U/L (0-33); Albumin Level 3.7 g/dL (3.5-5.2); Alkaline Phosphatase 53 U/L (35-105); Aspartate Amino Transferase 17 U/L (0-32); Blood Urea Nitrogen 9 mg/dL (6-20); Calcium 9.2 mg/dL (8.5-10.5); Carbon Dioxide 18 mmol/L (22-29); Chloride 106 mmol/L (98-107); Creatinine Clr Calc Pharmacy 175.8601; Globulin 3.1 g/dL (1.3-4.6); Glucose 105 mg/dL (65-115); Osmolality Calculated 285 mOsm/kg (285-295); Sodium 138 mmol/L (136-145); Total Bilirubin 0.2 mg/dL (0.15-1.2); Total Protein 6.8 g/dL (6.6-8.7)
[2024-10-17 23:29] LABS: Anion Gap 17.6 (5-19); Potassium 3.6 mmol/L (3.5-5.1)
[2024-10-17 23:46] LABS: UA Slide Review UA Slide Review Perf
[2024-10-18] VITALS: BP 108/75; PULSE 64; RESP 16; O2SAT 94
--- NOTE | 2024-10-18 00:13 | ED_ITS ---
HPI - Abdominal Pain 2 General: Chief Complaint: Abdominal Pain Stated Complaint: 9 Weeks Preg\Cramping Time Seen by Provider: 10/17/24 22:19 History of Present Illness: 29-year-old female patient [facility] stating that she is 9 weeks is having increased cramping. Patient states she was here about 4 weeks ago and was told that she has fibroid in her uterus and was told to follow-up with her OB. Patient cannot be seen by her OB until the . Patient states that the cramping is worsening and she wants to check to make sure baby is okay. Patient denies any fever. Patient denies any back pain. Patient denies any vaginal bleeding. Patient denies any urinary symptoms Related Data Home Medications ?Medication ?Instructions ?Recorded ?Confirmed buspirone 10 mg tablet 10 mg PO TID 04/20/23 Previous Rx's ?Medication ?Instructions ?Recorded ibuprofen 600 mg tablet 600 mg PO Q8H PRN pain #60 t abs 04/20/23 aripiprazole 2 mg tablet (Abilify) 2 mg PO DAILY #30 t abs 05/03/24 bupropion HCl 300 mg 24 hr tablet, 300 mg PO QAM #30 t abs 05/03/24 extended release exenatide 5 mcg/dose (250 5 mcg (0.02 mL) SUBCUT BID # 1.2 mL 05/14/24 mcg/mL)1.2 mL subcutaneous pen injector (Byetta) Allergies Allergy/AdvReac Type Severity Reaction Status Date / Time No Known Allergies Allergy Verified 10/17/24 21:40 Review of Systems 2 General: Reports: 10 or more systems reviewed and unremarkable except in HPI and below PFSH ED 2 PFSH: Medical History Obesity (BMI 30.0-34.9) PTSD (post-traumatic stress disorder) Anxiety and depression No pertinent past medical history Family History (Updated 05/03/24 @ 09:37 by Natalie Dumont NP) Mother Hypertension Thyroid disease Diabetes Father Diabetes Brother Diabetes Denies family history of Colon cancer Ovarian cancer Heart disease Hyperlipidemia Breast cancer Uterine cancer Stroke Social History Smoking and tobacco/nicotine status: current every day tobacco/nicotine user Substance/Drug Use: never Physical Exam 2 Const: COMMON NORMALS: no acute distress, average body habitus, alert and well nourished GENERAL APPEARANCE: cooperative ORIENTATION/CONSCIOUSNESS: Yes awake HENMT: COMMON NORMALS: normocephalic and atraumatic HEAD & SCALP: n ormocephalic and atraumatic Eye: COMMON NORMALS: conjunctivae normal CONJUNCTIVA: Yes conjunctivae normal Neck/C-Spine: GENERAL: Yes normal visual inspection Resp: COMMON NORMALS: normal respiratory effort, No retractions and No use of accessory muscles Cardio: COMMON NORMALS: regular rhythm and Peripheral pulses 2+ throughout RHYTHM: regular rhythm PERIPHERAL PULSES: Peripheral pulses 2+ throughout GI: COMMON NORMALS: Soft to palpation and non-tender PALPATION: Yes Soft to palpation Extremity: COMMON NORMALS: full ROM and no pedal edema Neuro: COMMON NORMALS: no focal motor deficits SENSORIUM/ORIENTATION: Yes alert Skin: COMMON NORMALS: no rashes or lesions noted GENERAL SKIN EXAM: no rashes or lesions noted Course 2 Vital Signs: Vital signs: Vital Signs Temperature 98.3 F 10/17/24 21:35 Pulse Rate 86 10/17/24 22:42 Respiratory Rate 16 10/17/24 22:42 Blood Pressure 112/76 10/17/24 22:42 Pulse Oximetry 97 10/17/24 22:42 Oxygen Delivery Me thod Room Air 10/17/24 22:42 MDM - Abdominal Pain Medical Decision Making 29-year-old female patient presents to the emergency department stating that she is 9 weeks is having increased cramping. Patient states she was here about 4 weeks ago and was told that she has fibroid in her uterus and was told to follow-up with her OB. Patient cannot be seen by her OB until the . Patient states that the cramping is worsening and she wants to check to make sure baby is okay. Patient denies any fever. Patient denies any back pain. Patient denies any vaginal bleeding. Patient denies any urinary symptoms patient is well-appearing nontoxic in no acute distress. Patient does not have any abdominal tenderness. Patient does not have any vaginal bleeding. Labs to this point are unremarkable. I will get a ultrasound for evaluation which is pending at this time. Care will be transitioned to Dr. Eagle at this time. Patient has been updated of status Lab Data 10/17/24 22:25 10/17/24 22: Labs/Radiology: Laboratory Results WBC 6.75 10^3/uL (3.29-11.43) 10/17/24: RBC 4.44 10^6/uL (3.85-5.65) 10/17/24: Hgb 12.20 g/dL (11.27-16.99) 10/17/24: Hct 38.4 % (36-47) 10/17/24: MCV 86.5 fl (85-98) 10/17/24: MCH 27.5 pg (27-33) 10/17/24: MCHC 31.8 g/dL (30-55) 10/17/24: RDW 14.2 % (12.1-15.1) 10/17/24: Plt Count 241 10^3/cmm (157-399) 10/17/24: MPV 10.6 fL (7.4-10.4) H 10/17/24: Neut % (Auto) 61.9 % 10/17/24: Lymph % (Auto) 27.9 % 10/17/24: [place] % (Auto) 7.3 % 10/17/24: Eos % (Auto) 2.2 % 10/17/24: Baso % (Auto) 0.4 % 10/17/24: Neut # (Auto) 4.18 10^3/uL (1.8-7.7) 10/17/24: Lymph # (Auto) 1.9 10^3/uL (0.8-4.8) 10/17/24: [place] # (Auto) 0.5 10^3/uL (0.2-0.9) 10/17/24: Eos # (Auto) 0.2 10^3/uL (0.0-0.8) 10/17/24: Baso # (Auto) 0.0 10^3/uL (0.0-0.1) 10/17/24: Nucleated RBC % (auto) 0 % 10/17/24: Nucleated RBCs # 0.0 /100WBC 10/17/24 22:25 Sodium 138 mmol/L (136-145) 10/17/24 22:25 Potassium 3.6 mmol/L (3.5-5.1) 10/17/24 22:25 Chloride 106 mmol/L (98-107) 10/17/24 22:25 Carbon Dioxide 18 mmol/L (22-29) L 10/17/24 22:25 Anion Gap 17.6 (5-19) 10/17/24 22:25 BUN 9 mg/dL (6-20) 10/17/24 22:25 Creatinine 0.5 mg/dL (0.5-0.9) 10/17/24 22:25 GFR Calculation 148.0 mL/min (90-130) H 10/17/24 22: Glucose 105 mg/dL (65-115) 10/17/24 22:25 Calculated Osmolality 285 mOsm/kg (285-295) 10/17/24 22:25 Calcium 9.2 mg/dL (8.5-10.5) 10/17/24 22:25 Total Bilirubin 0.2 mg/dL (0.15-1.2) 10/17/24 22:25 AST 17 U/L (0-32) 10/17/24 22:25 ALT 18 U/L (0-33) 10/17/24 22:25 Alkaline Phosphatase 53 U/L (35-105) 10/17/24 22:25 Total Protein 6.8 g/dL (6.6-8.7) 10/17/24 22:25 Albumin 3.7 g/dL (3.5-5.2) 10/17/24 22:25 Globulin 3.1 g/dL (1.3-4.6) 10/17/24 22:25 Ser , Semi-Qnt 18991.00 mIU/mL 10/17/24 22:25 Urine Color Yellow (Yellow) 10/17/24 21:46 Urine Appearance Cloudy (CLEAR) A 10/17/24 21:46 Urine pH 5.5 (5-7) 10/17/24 21:46 Ur Specific [place] 1.028 (1.005-1.030) 10/17/24 21:46 Urine Protein Negative (Negative) 10/17/24 21:46 Urine Glucose (UA) Negative (Normal) 10/17/24 21:46 Urine Ketones Negative (Negative) 10/17/24 21:46 Urine Blood Negative (Negative) 10/17/24 21:46 Urine Nitrate Negative (Negative) 10/17/24 21:46 Urine Bilirubin Negative (Negative) 10/17/24 21:46 Urine Urobilinogen 0.2 mg/dL (Negative) 10/17/24 21:46 Ur Leukocyte Esterase Negative (Negative) 10/17/24 21:46 Urine RBC 3-5 /hpf (0-2) 10/17/24 21:46 Urine WBC 11-20 /hpf (0-5) H 10/17/24 21:46 Ur Squamous Epith Cells 21-50 /hpf (0-5) H 10/17/24 21:46 Amorphous Sediment Not Reportable 10/17/24 21:46 Urine Bacteria 2+ /hpf (NONE) H 10/17/24 21:46 Hyaline Casts 0.81 /lpf 10/17/24 21:46 All radiology interpretation(s) finalized by discharge Discharge Plan Discharge Condition: Stable Prescriptions: No Action buspirone 10 mg tablet 10 mg PO TID ibuprofen 600 mg tablet 600 mg PO Q8H PRN (Reason: pain) Qty: 60 0RF aripiprazole [Abilify] 2 mg tablet 2 mg PO DAILY Qty: 30 0RF bupropion HCl 300 mg tablet extended release 24 hr 300 mg PO QAM Qty: 30 0RF exenatide [Byetta] 5 mcg/dose (250 mcg/mL) 1.2 mL pen injector 5 mcg SUBCUT BID Qty: 1.2 0RF Referrals: Joseph Archuleta MD [Primary Care Provider, Family Practice] Print Language: Emirati Coding Level of Care Code ED Gasket Supervisor for Chg Fwema
[2024-10-18 01:00] VITALS: BP 112/73; PULSE 70; RESP 16; O2SAT 98
[2024-10-18 02:49] VITALS: BP 122/68; PULSE 91; RESP 16; O2SAT 99
--- NOTE | 2024-10-18 23:11 | USR_ITS ---
PROCEDURE INFORMATION: Exam: US First Trimester, Transabdominal and US , Transvaginal Exam date and time: 10/18/2024 1:16 AM Age: 29 years old Clinical indication: complicated by abdominal or pelvic pain; Lower; First trimester (<14 weeks 0 days); Gestational age or lmp: 8w2d; ; Prior surgery; Surgery date: 6+ months; Surgery type: C section- unsure of dates; Additional info: Preg pelvic pain LABS AND CLINICAL REPORTS: Gestational age (Established): 7 w 6 d Estimated due date (Established): 05/31/2025 TECHNIQUE: Imaging protocol: Real-time transabdominal obstetrical ultrasound of the maternal pelvis and a first trimester , less than 14 weeks 0 days, with image documentation. Transvaginal imaging was used for better evaluation of the fetus, adnexa, and/or cervix. COMPARISON: US OB <= 14 weeks fetus [id number] 09/23/2024 9:27 PM FINDINGS: GESTATION: Gestation: Intrauterine gestational sac, yolk sac and pole. The mean crown-rump length measures 1.8 cm Embryo/ cardiac activity (BPM): 159 bpm Extra-embryonic membranes/Placenta: Subchorionic hematoma measuring 0.8 x 0.7 x 1.8 cm. Amniotic/Chorionic fluid: Amniotic and extra-amniotic fluid are normal for gestational age. BIOMETRY: Gestational age (AUA): 8 weeks, 2 days +/-5 days Estimated due date (AUA): May 28, 2025 MATERNAL: Uterus: Unremarkable. Cervix: Cervical length measures 3.8 cm. Right ovary/adnexa: Right ovary measures 2.2 x 2.9 x 2.3 cm. Color and spectral Doppler interrogation of the right ovary documents arterial and venous flow. Left ovary/adnexa: Left ovary measures 1.5 x 1.8 x 1.8 cm. Color and spectral Doppler interrogation of the left ovary documents arterial and venous flow. Intraperitoneal space: No intraperitoneal free fluid. US/US OB <=14 wk fetus w transvag IMPRESSION: 1. Single intrauterine with cardiac activity. 2. Small subchorionic hematoma. 3. Negative exam for ovarian torsion.
== END 2024-10-18 02:50 | disposition home or self-care (01) ==
PROVIDERS: Emergency Provider Emergency Medicine; PCP Family Medicine
DX: O26.891 Other specified pregnancy related conditions, first trimester (principal); Z3A.09 9 weeks gestation of pregnancy; R10.9 Unspecified abdominal pain
CPT/HCPCS: 36415; 76801; 76817; 80053; 81001; 84702; 85025; 99284

== ENCOUNTER → 2024-10-20 17:47 | Outpatient (BNVA) | payer MEDICAID, SELFPAY | PROVIDERS: PCP Family Medicine; Visit Provider Nurse Practitioner | DX: J02.9 Acute pharyngitis, unspecified (principal) | CPT/HCPCS: 87071; 87880 ==

== ENCOUNTER 2024-12-08 22:02 | Emergency (ER) | payer MEDICAID, SELFPAY ==
--- OUTSIDE RECORDS SUMMARY | 2017-08-25 12:00 | XMS_ITS | Continuity of Care Document ---
Author Organization [facility] Address [id number] [address] Phone Care Team Providers Care Cyber Intelligence Analyst Name Role Phone Jean Marie Robb DDS Unavailable Unavailab le Procedures Procedure Date Patient Left / No Show Advance Directives Directive Yes / No Effective Date File Name No Information Encounters Encounter Description Practice Location Reason(s) For Visit Diagnoses Date Provider Providers Copied on Encounter [facility], [id number] [facility], [place], [place], [id number], [place] tel:[phone] [facility] No Information [address]. [address] [place], [address], [place]. tel:[phone] Referring Provider: Jean Marie Robb A, [address] [place], [address]. tel:[phone] Family History Family Member Type Diagnosis Age At Onset No Information Payers Payer name Insurance type Covered democrat ID Jas good(s) D [employer] [id number] Social History Type Description Quantity Date Captured Comments Sex Female Smoking Status No Information Chief Complaint And Reason For Visit No Information Reason For Referral Reason For Referral No Information History Of Present Illness Encounter Date Complaint History Of Prese nt Illness No Information Functional Status Date Functional Assessmen t No Information Instructions Date Instruction Additional Infor mation No Information Assessments Type Assessment Date No Information Patient Care Teams Name Effective Dates (start - stop) Status Members No Information
[2024-12-08 22:11] VITALS: BP 114/82; PULSE 111; RESP 17; TEMP 36.6; O2SAT 97; BMI 33.1
--- OUTSIDE RECORDS SUMMARY | 2024-12-08 22:11 | XMS_ITS | Encounter Summary ---
Author Organization [facility] [facility] Address [address] [place] [address] Care Team Providers Care Engineer Conductor Name Role Phone Oskar Quezada NP Primary Care Provider Encounter Details Date Type Department Care Team (Latest Contact Info) Description 11/17/1998 Outpatient Historical [facility] Sebastián Lynch MD [address] [place] [address] Abdominal pain, unspecified site (Primary Dx); Diarrhea Social History Tobacco Use Types Packs/Day Years Used Date Smoking Tobacco: Never Assessed Comments Unknown Sex and Gender Information Value Date Recorded Sex Assigned at Not on file 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
--- OUTSIDE RECORDS SUMMARY | 2024-12-08 22:11 | XMS_ITS | Encounter Summary ---
Author Organization [employer] [facility] Address [address] [place] [address] Care Team Providers Care Reserves Clerk Name Role Phone Oskar Quezada NP Primary Care Provider Encounter Details Date Type Department Care Team (Latest Contact Info) Description 07/23/1999 Outpatient Historical [facility] Sebastián Lynch MD [address] [place] [id number] Bronchitis, not specified as acute or chronic (Primary Dx) Social History Tobacco Use Types Packs/Day Years Used Date Smoking Tobacco: Never Assessed Comments Unknown Sex and Gender Information Value Date Recorded Sex Assigned at Not on file 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
--- OUTSIDE RECORDS SUMMARY | 2024-12-08 22:11 | XMS_ITS | Encounter Summary ---
Author Organization [facility] [facility] [employer] [facility] Address [address] [place] [address] Care Team Providers Care Nick Setter Name Role Phone Oskar Quezada NP Primary Care Provider [phone] Encounter Details Date Type Department Care Team (Latest Contact Info) Description 12/11/2001 Outpatient Historical [facility] Sebastián Lynch MD [address] [place] [address] HEMATURIA (Primary Dx) Social History Tobacco Use Types Packs/Day Years Used Date Smoking Tobacco: Never Assessed Comments Unknown Sex and Gender Information Value Date Recorded Sex Assigned at Not on file 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
--- OUTSIDE RECORDS SUMMARY | 2024-12-08 22:11 | XMS_ITS | Encounter Summary ---
Author Organization [employer] [facility] Address [address] [place] [address] Care Team Providers Care Strategic Development Manager Name Role Phone Oskar Quezada NP Primary Care Provider Encounter Details Date Type Department Care Team (Latest Contact Info) Description 11/17/2001 Outpatient Historical HIS [facility] Sebastián Lynch MD [address] [place] [address] URIN TRACT INFECTION NOS (Primary Dx) Social History Tobacco Use Types Packs/Day Years Used Date Smoking Tobacco: Never Assessed Comments Unknown Sex and Gender Information Value Date Recorded Sex Assigned at Not on file 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
--- OUTSIDE RECORDS SUMMARY | 2024-12-08 22:11 | XMS_ITS | Encounter Summary ---
Author Organization [employer] [facility] Address [address] [place] [address] Care Team Providers Care Industrial Maintenance Technician Name Role Phone Oskar Quezada NP Primary Care Provider Encounter Details Date Type Department Care Team (Latest Contact Info) Description 04/04/2000 Outpatient Historical HIS [facility] Sebastián Lynch MD [address] [place] [address] Anomal skull/face bones (Primary Dx) Social History Tobacco Use Types Packs/Day Years Used Date Smoking Tobacco: Never Assessed Comments Unknown Sex and Gender Information Value Date Recorded Sex Assigned at Not on file Legal Sex Female 5: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
--- OUTSIDE RECORDS SUMMARY | 2024-12-08 22:11 | XMS_ITS | Encounter Summary ---
Author Organization [employer] [facility] Address [address] [place] [address] Care Team Providers Care Wound Nurse Name Role Phone Oskar Quezada NP Primary Care Provider Encounter Details Date Type Department Care Team (Latest Contact Info) Description 02/26/1999 Outpatient Historical HIS [facility] Sebastián Lynch MD [address] [place] [phone] Unspecified otitis media (Primary Dx) Social History Tobacco Use Types Packs/Day Years Used Date Smoking Tobacco: Never Assessed Comments Unknown Sex and Gender Information Value Date Recorded Sex Assigned at Not on file Legal Sex Female 5:49 AM RECONCILER Gender Identity Not on file Sexual Orientation Not on file documented as of this encounter Plan of Treatment Not on file documented as of this encounter Visit Diagnoses Diagnosis Unspecified otitis media- Primary documented in this encounter Care Teams Wound Nurse Relationship Specialty Start Date End Date Oskar Quezada NP PCP - General NURSE PRACTITIONER 02/17/13 documented as of this encounter
--- OUTSIDE RECORDS SUMMARY | 2024-12-08 22:11 | XMS_ITS | Encounter Summary ---
Author Organization [employer] [facility] Address [address] [place] [address] Care Team Providers Care Finish Repairer Name Role Phone Oskar Quezada NP Primary Care Provider [phone] Encounter Details Date Type Department Care Team (Latest Contact Info) Description 11/11/2000 Outpatient Historical HIS [facility] Sebastián Lynch MD [address] [place] [phone] Unspecified otitis media (Primary Dx) Social History Tobacco Use Types Packs/Day Years Used Date Smoking Tobacco: Never Assessed Comments Unknown Sex and Gender Information Value Date Recorded Sex Assigned at Not on file Legal Sex Female 5:49 AM OPERATING ROOM COORDINATOR Gender Identity Not on file Sexual Orientation Not on file documented as of this encounter Plan of Treatment Not on file documented as of this encounter Visit Diagnoses Diagnosis Unspecified otitis media- Primary documented in this encounter Care Teams Finish Repairer Relationship Specialty Start Date End Date Oskar Quezada NP PCP - General NURSE PRACTITIONER 02/17/13 documented as of this encounter
--- OUTSIDE RECORDS SUMMARY | 2024-12-08 22:11 | XMS_ITS | Encounter Summary ---
Author Organization [employer] [facility] Address [address] [place] [address] Care Team Providers Care Public Speaking Instructor Name Role Phone Oskar Quezada DIETICIAN Primary Care Provider Encounter Details Date Type Department Care Team (Latest Contact Info) Description 02/12/2000 Outpatient Historical HIS [facility] Sebastián Lynch MD [address] [place] [phone] Acute pharyngitis (Primary Dx); Acute sinusitis, unspecified Social History Tobacco Use Types Packs/Day Years Used Date Smoking Tobacco: Never Assessed Comments Unknown Sex and Gender Information Value Date Recorded Sex Assigned at Not on file Legal Sex Female 5:49 AM TOOL AND DIE MANAGER Gender Identity Not on file Sexual Orientation Not on file documented as of this encounter Plan of Treatment Not on file documented as of this encounter Visit Diagnoses Diagnosis Acute pharyngitis- Primary Acute sinusitis, unspecified documented in this encounter Care Teams Public Speaking Instructor Relationship Specialty Start Date End Date Oskar Quezada NP PCP - General NURSE PRACTITIONER 02/17/13 documented as of this encounter
--- OUTSIDE RECORDS SUMMARY | 2024-12-08 22:11 | XMS_ITS | Encounter Summary ---
Author Organization [employer] [facility] Address [address] [place] [address] Care Team Providers Care Tool And Die Repairer Name Role Phone Oskar Quezada NP Primary Care Provider Encounter Details Date Type Department Care Team (Latest Contact Info) Description 06/08/2002 Outpatient Historical HIS [facility] Sebastián Lynch MD [address] [place] [address] OTITIS MEDIA NOS (Primary Dx) Social History Tobacco Use Types Packs/Day Years Used Date Smoking Tobacco: Never Assessed Comments Unknown Sex and Gender Information Value Date Recorded Sex Assigned at Not on file Legal Sex Female 5:49 AM TRADING SPECIALIST Gender Identity Not on file Sexual Orientation Not on file documented as of this encounter Plan of Treatment Not on file documented as of this encounter Visit Diagnoses Diagnosis Unspecified otitis media- Primary documented in this encounter Care Teams Tool And Die Repairer Relationship Specialty Start Date End Date Oskar Quezada NP PCP - General NURSE PRACTITIONER 02/17/13 documented as of this encounter
--- OUTSIDE RECORDS SUMMARY | 2024-12-08 22:11 | XMS_ITS | Encounter Summary ---
Author Organization [employer] [facility] Address [address] [place] [address] Care Team Providers Care Hotel Assistant Manager Name Role Phone Oskar Quezada NP Primary Care Provider Encounter Details Date Type Department Care Team (Latest Contact Info) Description 10/23/1999 Outpatient Historical HIS [facility] Sebastián Lynch MD [address] [place] [address] Acute tonsillitis (Primary Dx) Social History Tobacco Use Types Packs/Day Years Used Date Smoking Tobacco: Never Assessed Comments Unknown Sex and Gender Information Value Date Recorded Sex Assigned at Not on file Legal Sex Female 5:49 AM MATRIX BATH ATTENDANT Gender Identity Not on file Sexual Orientation Not on file documented as of this encounter Plan of Treatment Not on file documented as of this encounter Visit Diagnoses Diagnosis Acute tonsillitis- Primary documented in this encounter Care Teams Hotel Assistant Manager Relationship Specialty Start Date End Date Oskar Quezada NP PCP - General NURSE PRACTITIONER 02/17/13 documented as of this encounter
--- OUTSIDE RECORDS SUMMARY | 2024-12-08 22:11 | XMS_ITS | Clinical Summary ---
Author Organization [facility] Address [address] [place] [address] Phone Care Team Providers Care Director Of Labor And Delivery Name Role Phone Oskar Quezada SOFTWARE CONFIGURATION SPECIALIST Primary Care Provider Allergies No known active allergies Medications No known medications Active Problems No known active problems Immunizations Immunization Administration Dates Next Due (M-M-R II/PRIORIX)(12 MO UP) MEASLES, MUMPS AND RUBELLA VIRUS VACCINE, 0.5 ML IM/SUBCUT 12/21/2002,08/23/1998 (VARIVAX)(12 MOS UP)VARICELL A VIRUS VACCINE (PF) 0.5 ML, SUB CUT 11/28/2000 Dt Dtp Dtap Vaccine 12/21/2002, 9,08/23/1998,1997,1997 HIB, Unspecified Formulation 03/22/1999, 08/23/1998,1997,1997 Hepatitis B Vaccine 08/23/1998,1997,1996 IPV/OPV 12/21/2002, 9,1997,1997 Social History Tobacco Use Types Packs/Day Years Used Date Smoking Tobacco: Passive Smo ke Exposure - Never Smoker Cigarettes Smokeless Tobacco: Never Alcohol Use Standard Drinks/Week Comments No 0 (1 standard drink = 0.6 oz pur e alcohol) Comments No Sex and Gender Information Value Date Recorded Sex Assigned at Not on file Legal Sex Female 5:49 AM MANUSCRIPTS ARCHIVIST Gender Identity Not on file Sexual Orientation Not on file Occupation Industry Job Start Date Job End Date Not on file Not on file Not on file Not on file Last Filed Vital Signs Vital Sign Reading Time Taken Comments Blood Pressure 104/68 07/30/2013 10:20 PM CDT Pulse 76 07/30/2013 10:20 PM CDT Temperature 37.6 C (99.7 F) 07/30/2013 10:20 PM CDT Respiratory Rate 20 07/30/2013 8:56 PM CDT Oxygen Saturation 98% 07/30/2013 10: 20 PM CDT Inhaled Oxygen Concentration - - Weight 61.1 kg (134 lb 12.8 oz) 07/30/2013 8:56 PM CDT Height 160 cm (5' 3 ) 07/30/2013 8:56 PM CDT Body Mass Index 23.88 07/30/2013 8:56 PM CDT Plan of Treatment Health Maintenance Due Date Last Done Comments DTAP/TDAP/TD VACCINES (6 - Tdap) 2008 12/21/2002, 03/22/1999, 08/23/1998, Additional history exists HPV VACCINES (1 - 3-dose series) 2012 CERVICAL CANCER SCREENING 2018 HPV/Cotest (21-29) 2018 PAP SMEAR 2018 INFLUENZA VACCINE (#1) 2024 HEPATITIS B VACCINES Completed 08/23/1998, 1997, 1997 Insurance [address] [place], [place] [address] MEDICA[place] Care Teams Director Of Labor And Delivery Relationship Specialty Start Date End Date Oskar Quezada NP PCP - General NURSE PRACTITIONER 02/17/13
--- OUTSIDE RECORDS SUMMARY | 2024-12-08 22:11 | XMS_ITS | Encounter Summary ---
Author Organization [employer] [facility] Address [address] [place] [address] Care Team Providers Care Silver Spray Worker Name Role Phone Oskar Quezada NP Primary Care Provider Encounter Details Date Type Department Care Team (Latest Contact Info) Description 04/18/1999 Outpatient Historical [facility] Gautam Sawyer NO ADDRESS ON FILE Acute upper respiratory infections of unspecified site (Primary Dx) Social History Tobacco Use Types Packs/Day Years Used Date Smoking Tobacco: Never Assessed Comments Unknown Sex and Gender Information Value Date Recorded Sex Assigned at Not on file Legal Sex Female 5:49 AM FOOD DEMONSTRATOR Gender Identity Not on file Sexual Orientation Not on file documented as of this encounter Plan of Treatment Not on file documented as of this encounter Visit Diagnoses Diagnosis Acute upper respiratory infections of unspecified site- Primary documented in this encounter Care Teams Silver Spray Worker Relationship Specialty Start Date End Date Oskar Quezada NP PCP - General NURSE PRACTITIONER 02/17/13 documented as of this encounter
--- OUTSIDE RECORDS SUMMARY | 2024-12-08 22:11 | XMS_ITS | Encounter Summary ---
Author Organization [employer] [facility] Address [address] [place] [address] Care Team Providers Care Distribution Field Technician Name Role Phone Oskar Quezada NP Primary Care Provider Encounter Details Date Type Department Care Team (Latest Contact Info) Description 02/03/2001 Outpatient Historical HIS [facility] Sebastián Lynch MD [address] [place] [address] Dental caries (Primary Dx); Preoperative examination, unspecified Social History Tobacco Use Types Packs/Day Years Used Date Smoking Tobacco: Never Assessed Comments Unknown Sex and Gender Information Value Date Recorded Sex Assigned at Not on file Legal Sex Female 5: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
--- OUTSIDE RECORDS SUMMARY | 2024-12-08 22:11 | XMS_ITS | Encounter Summary ---
Author Organization [employer] [facility] Address [address] [place] [address] Care Team Providers Care Asset Coordinator Name Role Phone Oskar Quezada NP Primary Care Provider Encounter Details Date Type Department Care Team (Latest Contact Info) Description 06/30/2001 Outpatient Historical HIS [facility] Sebastián Lynch MD [address] [place] [address] URIN TRACT INFECTION NOS (Primary Dx) Social History Tobacco Use Types Packs/Day Years Used Date Smoking Tobacco: Never Assessed Comments Unknown Sex and Gender Information Value Date Recorded Sex Assigned at Not on file Legal Sex Female 5:49 AM RETAIL PARTS PROFESSIONAL Gender Identity Not on file Sexual Orientation Not on file documented as of this encounter Plan of Treatment Not on file documented as of this encounter Visit Diagnoses Diagnosis Urinary tract infection, site not specified- Primary documented in this encounter Care Teams Asset Coordinator Relationship Specialty Start Date End Date Oskar Quezada NP PCP - General NURSE PRACTITIONER 02/17/13 documented as of this encounter
--- OUTSIDE RECORDS SUMMARY | 2024-12-08 22:11 | XMS_ITS | Encounter Summary ---
Author Organization [employer] [facility] Address [address] [place] [address] Care Team Providers Care Estate Planner Name Role Phone Oskar Quezada NP Primary Care Provider Encounter Details Date Type Department Care Team (Latest Contact Info) Description 07/02/2000 Outpatient Historical HIS [facility] Gautam Sawyer NO ADDRESS ON FILE Other and unspecified noninfectious gastroenteritis and colitis(558.9) (Primary Dx) Social History Tobacco Use Types Packs/Day Years Used Date Smoking Tobacco: Never Assessed Comments Unknown Sex and Gender Information Value Date Recorded Sex Assigned at Not on file Legal Sex Female 5:49 AM CERAMIC COATER MACHINE Gender Identity Not on file Sexual Orientation Not on file documented as of this encounter Plan of Treatment Not on file documented as of this encounter Visit Diagnoses Diagnosis Other and unspecified noninfectious gastroenteritis and colitis(558.9)- Primary Other and unspecified noninfectious gastroenteritis and colitis documented in this encounter Care Teams Estate Planner Relationship Specialty Start Date End Date Oskar Quezada NP PCP - General NURSE PRACTITIONER 02/17/13 documented as of this encounter
--- OUTSIDE RECORDS SUMMARY | 2024-12-08 22:11 | XMS_ITS | Encounter Summary ---
Author Organization [employer] [facility] Address [address] [place] [address] Care Team Providers Care Manager Lean Name Role Phone Oskar Quezada NP Primary Care Provider [phone] Encounter Details Date Type Department Care Team (Latest Contact Info) Description 10/23/1998 Outpatient Historical HIS [facility] Sebastián Lynch MD [address] [place] [address] Acute upper respiratory infections of unspecified site (Primary Dx) Social History Tobacco Use Types Packs/Day Years Used Date Smoking Tobacco: Never Assessed Comments Unknown Sex and Gender Information Value Date Recorded Sex Assigned at Not on file Legal Sex Female 5:49 AM MUD CAR WORKER Gender Identity Not on file Sexual Orientation Not on file documented as of this encounter Plan of Treatment Not on file documented as of this encounter Visit Diagnoses Diagnosis Acute upper respiratory infections of unspecified site- Primary documented in this encounter Care Teams Manager Lean Relationship Specialty Start Date End Date Oskar Quezada NP PCP - General NURSE PRACTITIONER 02/17/13 documented as of this encounter
--- OUTSIDE RECORDS SUMMARY | 2024-12-08 22:11 | XMS_ITS | Encounter Summary ---
Author Organization [employer] [facility] Address [address] [place] [address] Care Team Providers Care Rubber Roller Grinder Operator Name Role Phone Oskar Quezada NP Primary Care Provider Encounter Details Date Type Department Care Team (Latest Contact Info) Description 02/12/1999 Outpatient Historical HIS [facility] Sebastián Lynch MD [address] [place] [address] Unspecified otitis media (Primary Dx); Impacted cerumen Social History Tobacco Use Types Packs/Day Years Used Date Smoking Tobacco: Never Assessed Comments Unknown Sex and Gender Information Value Date Recorded Sex Assigned at Not on file Legal Sex Female 5:49 AM RENDERER Gender Identity Not on file Sexual Orientation Not on file documented as of this encounter Plan of Treatment Not on file documented as of this encounter Visit Diagnoses Diagnosis Unspecified otitis media- Primary Impacted cerumen documented in this encounter Care Teams Rubber Roller Grinder Operator Relationship Specialty Start Date End Date Oskar Quezada NP PCP - General NURSE PRACTITIONER 02/17/13 documented as of this encounter
--- OUTSIDE RECORDS SUMMARY | 2024-12-08 22:11 | XMS_ITS | Encounter Summary ---
Author Organization [employer] [facility] Address [address] [place] [address] Care Team Providers Care Outside Residential Sales Professional Name Role Phone Oskar Quezada NP Primary Care Provider Encounter Details Date Type Department Care Team (Latest Contact Info) Description 02/23/2002 Outpatient Historical HIS [facility] Sebastián Lynch MD [address] [place] [address] SPRAIN NOS (Primary Dx) Social History Tobacco Use Types Packs/Day Years Used Date Smoking Tobacco: Never Assessed Comments Unknown Sex and Gender Information Value Date Recorded Sex Assigned at Not on file Legal Sex Female 5:49 AM GROCERY BUYER Gender Identity Not on file Sexual Orientation Not on file documented as of this encounter Plan of Treatment Not on file documented as of this encounter Visit Diagnoses Diagnosis Unspecified site of sprain and strain- Primary documented in this encounter Care Teams Outside Residential Sales Professional Relationship Specialty Start Date End Date Oskar Quezada NP PCP - General NURSE PRACTITIONER 02/17/13 documented as of this encounter
--- OUTSIDE RECORDS SUMMARY | 2024-12-08 22:11 | XMS_ITS | Encounter Summary ---
Author Organization [employer] [facility] Address [address] [place] [address] Care Team Providers Care Magnetic Resonance Imaging Director Name Role Phone Oskar Quezada HOCKEY INSTRUCTOR Primary Care Provider Encounter Details Date Type Department Care Team (Latest Contact Info) Description 02/26/2000 Outpatient Historical HIS [facility] Sebastián Lynch MD [address] [place] [address] Acute pharyngitis (Primary Dx); Acute sinusitis, unspecified Social History Tobacco Use Types Packs/Day Years Used Date Smoking Tobacco: Never Assessed Comments Unknown Sex and Gender Information Value Date Recorded Sex Assigned at Not on file Legal Sex Female 5:49 AM STUDENT FINANCE ADVISOR Gender Identity Not on file Sexual Orientation Not on file documented as of this encounter Plan of Treatment Not on file documented as of this encounter Visit Diagnoses Diagnosis Acute pharyngitis- Primary Acute sinusitis, unspecified documented in this encounter Care Teams Magnetic Resonance Imaging Director Relationship Specialty Start Date End Date Oskar Quezada NP PCP - General NURSE PRACTITIONER 02/17/13 documented as of this encounter
--- OUTSIDE RECORDS SUMMARY | 2024-12-08 22:12 | XMS_ITS | Encounter Summary ---
Author Organization [employer] [facility] Address [address] [place] [address] Care Team Providers Care Time Lock Expert Name Role Phone Oskar Quezada NP Primary Care Provider [phone] Encounter Details Date Type Department Care Team (Latest Contact Info) Description 09/22/2001 Outpatient Historical HIS [facility] Sebastián Lynch MD [address] [place] [address] URIN TRACT INFECTION NOS (Primary Dx) Social History Tobacco Use Types Packs/Day Years Used Date Smoking Tobacco: Never Assessed Comments Unknown Sex and Gender Information Value Date Recorded Sex Assigned at Not on file Legal Sex Female 5:49 AM GOLF COURSE SUPERINTENDENT Gender Identity Not on file Sexual Orientation Not on file documented as of this encounter Plan of Treatment Not on file documented as of this encounter Visit Diagnoses Diagnosis Urinary tract infection, site not specified- Primary documented in this encounter Care Teams Time Lock Expert Relationship Specialty Start Date End Date Oskar Quezada NP PCP - General NURSE PRACTITIONER 02/17/13 documented as of this encounter
--- OUTSIDE RECORDS SUMMARY | 2024-12-08 22:12 | XMS_ITS | Encounter Summary ---
Author Organization [employer] [facility] Address [address] [place] [address] Care Team Providers Care Propellant Charge Loader Name Role Phone Oskar Quezada NP Primary Care Provider Encounter Details Date Type Department Care Team (Latest Contact Info) Description 07/20/1998 Outpatient Historical HIS [facility] Sebastián Lynch MD [address] [place] [address] Bronchitis, not specified as acute or chronic (Primary Dx) Social History Tobacco Use Types Packs/Day Years Used Date Smoking Tobacco: Never Assessed Comments Unknown Sex and Gender Information Value Date Recorded Sex Assigned at Not on file Legal Sex Female 5:49 AM INFORMATION ASSURANCE SPECIALIST Gender Identity Not on file Sexual Orientation Not on file documented as of this encounter Plan of Treatment Not on file documented as of this encounter Visit Diagnoses Diagnosis Bronchitis, not specified as acute or chronic- Primary documented in this encounter Care Teams Propellant Charge Loader Relationship Specialty Start Date End Date Oskar Quezada NP PCP - General NURSE PRACTITIONER 02/17/13 documented as of this encounter
--- OUTSIDE RECORDS SUMMARY | 2024-12-08 22:12 | XMS_ITS | Encounter Summary ---
Author Organization [employer] [facility] Address [address] [place] [address] Care Team Providers Care Florist Name Role Phone Oskar Quezada NP Primary Care Provider Encounter Details Date Type Department Care Team (Latest Contact Info) Description 1998 Outpatient Historical HIS [facility] Sebastián Lynch MD [address] [place] [address] Acute upper respiratory infections of unspecified site (Primary Dx) Social History Tobacco Use Types Packs/Day Years Used Date Smoking Tobacco: Never Assessed Comments Unknown Sex and Gender Information Value Date Recorded Sex Assigned at Not on file Legal Sex Female 5:49 AM INSIDE OUTSIDE SALES REPRESENTATIVE Gender Identity Not on file Sexual Orientation Not on file documented as of this encounter Plan of Treatment Not on file documented as of this encounter Visit Diagnoses Diagnosis Acute upper respiratory infections of unspecified site- Primary documented in this encounter Care Teams Florist Relationship Specialty Start Date End Date sOkar Quezada NP PCP - General NURSE PRACTITIONER 02/17/13 documented as of this encounter
--- OUTSIDE RECORDS SUMMARY | 2024-12-08 22:12 | XMS_ITS | Encounter Summary ---
Author Organization [facility] Address [address] [place] [address] Care Team Providers Care Saas Architect Name Role Phone Oskar Quezada NP Primary Care Provider Encounter Details Date Type Department Care Team (Latest Contact Info) Description 08/28/1998 Outpatient Historical HIS [facility] Sebastián Lynch MD [address] [place] [address] Other and unspecified noninfectious gastroenteritis and colitis(558.9) (Primary Dx) Social History Tobacco Use Types Packs/Day Years Used Date Smoking Tobacco: Never Assessed Comments Unknown Sex and Gender Information Value Date Recorded Sex Assigned at Not on file Legal Sex Female 5:49 AM NUCLEAR ENGINEER Gender Identity Not on file Sexual Orientation Not on file documented as of this encounter Plan of Treatment Not on file documented as of this encounter Visit Diagnoses Diagnosis Other and unspecified noninfectious gastroenteritis and colitis(558.9)- Primary Other and unspecified noninfectious gastroenteritis and colitis documented in this encounter Care Teams Saas Architect Relationship Specialty Start Date End Date Oskar Quezada NP PCP - General NURSE PRACTITIONER 02/17/13 documented as of this encounter
--- OUTSIDE RECORDS SUMMARY | 2024-12-08 22:12 | XMS_ITS | Encounter Summary ---
Author Organization [employer] [facility] Address [address] [place] [address] Care Team Providers Care Call Box Wirer Name Role Phone Oskar Quezada NP Primary Care Provider [phone] Encounter Details Date Type Department Care Team (Latest Contact Info) Description 09/10/2001 Outpatient Historical [facility] Sebastián Lynch MD [address] [place] [address] INSECT BITE NEC (Primary Dx); Nonvenom arthropod bite Social History Tobacco Use Types Packs/Day Years Used Date Smoking Tobacco: Never Assessed Comments Unknown Sex and Gender Information Value Date Recorded Sex Assigned at Not on file Legal Sex Female 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 Gender Identity Not on file Sexual Orientation Not on file documented as of this encounter Plan of Treatment Not on file documented as of this encounter Visit Diagnoses Diagnosis Other, multiple, and unspecified sites, insect bite, nonvenomous, without mention of infection(919.4)- Primary Other, multiple, and unspecified sites, insect bite, nonvenomous, without mention of infection Nonvenom arthropod bite Open wound(s) (multiple) of unspecified site(s), without mention of complication documented in this encounter Care Teams Call Box Wirer Relationship Specialty Start Date End Date Oskar Quezada NP PCP - General NURSE PRACTITIONER 02/17/13 documented as of this encounter
--- OUTSIDE RECORDS SUMMARY | 2024-12-08 22:12 | XMS_ITS | Encounter Summary ---
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
--- OUTSIDE RECORDS SUMMARY | 2024-12-08 22:12 | XMS_ITS | Encounter Summary ---
Author Organization [employer] [facility] Address [address] [place] [address] Care Team Providers Care Laundry Sorter Name Role Phone Oskar Quezada NP Primary Care Provider Encounter Details Date Type Department Care Team (Latest Contact Info) Description 06/19/1998 Outpatient Historical HIS [facility] Sebastián Lynch MD [address] [place] [id number] Unspecified otitis media (Primary Dx) Social History Tobacco Use Types Packs/Day Years Used Date Smoking Tobacco: Never Assessed Comments Unknown Sex and Gender Information Value Date Recorded Sex Assigned at Not on file Legal Sex Female 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
--- OUTSIDE RECORDS SUMMARY | 2024-12-08 22:12 | XMS_ITS | Encounter Summary ---
Author Organization [employer] [facility] Address [address] [place] [address] Care Team Providers Care Combat Control Name Role Phone Oskar Quezada NP Primary Care Provider [phone] Encounter Details Date Type Department Care Team (Latest Contact Info) Description 07/27/2001 Outpatient Historical HIS [facility] Sebastián Lynch MD [address] [place] [address] URIN TRACT INFECTION NOS (Primary Dx) Social History Tobacco Use Types Packs/Day Years Used Date Smoking Tobacco: Never Assessed Comments Unknown Sex and Gender Information Value Date Recorded Sex Assigned at Not on file 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
--- OUTSIDE RECORDS SUMMARY | 2024-12-08 22:12 | XMS_ITS | Encounter Summary ---
Author Organization [employer] [facility] Address [address] [place] [address] Care Team Providers Care Marketing Admin Name Role Phone Oskar Quezada NP Primary Care Provider Encounter Details Date Type Department Care Team (Latest Contact Info) Description 10/20/2001 Outpatient Historical HIS [facility] Sebastián Lynch MD [address] [place] [address] ACUTE PHARYNGITIS (Primary Dx); URIN TRACT INFECTION NOS; ACUTE TONSILLITIS Social History Tobacco Use Types Packs/Day Years Used Date Smoking Tobacco: Never Assessed Comments Unknown Sex and Gender Information Value Date Recorded Sex Assigned at Not on file 

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
--- OUTSIDE RECORDS SUMMARY | 2024-12-08 22:12 | XMS_ITS | Encounter Summary ---
Author Organization [employer] [facility] Address [address] [place] [address] Care Team Providers Care Rubber Chemist Name Role Phone Oskar Quezada NP Primary Care Provider [phone] Encounter Details Date Type Department Care Team (Latest Contact Info) Description 08/17/2001 Outpatient Historical [facility] Sebastián Lynch MD [address] [place] [address] INSECT BITE NEC (Primary Dx); MED EXAM NEC-ADMIN PURP Social History Tobacco Use Types Packs/Day Years Used Date Smoking Tobacco: Never Assessed Comments Unknown Sex and Gender Information Value Date Recorded Sex Assigned at Not on file Legal Sex Female 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 Gender Identity Not on file Sexual Orientation Not on file documented as of this encounter Plan of Treatment Not on file documented as of this encounter Visit Diagnoses Diagnosis Other, multiple, and unspecified sites, insect bite, nonvenomous, without mention of infection(919.4)- Primary Other, multiple, and unspecified sites, insect bite, nonvenomous, without mention of infection Other general medical examination for administrative purposes documented in this encounter Care Teams Rubber Chemist Relationship Specialty Start Date End Date Oskar Quezada NP PCP - General NURSE PRACTITIONER 02/17/13 documented as of this encounter
--- OUTSIDE RECORDS SUMMARY | 2024-12-08 22:12 | XMS_ITS | Encounter Summary ---
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
[2024-12-08 23:14] VITALS: BP 120/81; PULSE 98; O2SAT 97
[2024-12-08 23:22] LABS: Glucose Urine UA Negative (Normal); Nitrate Urine Negative (Negative); Specific Gravity, Urine 1.019 (1.005-1.030)
[2024-12-08 23:27] LABS: Add Urine Microscopic? YES
[2024-12-08 23:40] LABS: Hematocrit 35.7 % (36-47); Hemoglobin 11.70 g/dL (11.27-16.99); Mean Corpuscular HGB Conc 32.8 g/dL (30-55); Mean Corpuscular Hemoglobin 27.4 pg (27-33); Mean Corpuscular Volume 83.6 fl (85-98); Nucleated Red Blood Cells % 0 %; Platelet Count 256 10^3/cmm (157-399); Red Blood Count 4.27 10^6/uL (3.85-5.65); White Blood Count 10.44 10^3/uL (3.29-11.43)
--- NOTE | 2024-12-08 23:43 | ED_ITS ---
HPI - Female Genitourinary 2 General: Chief complaint: Urogenital-Female Stated complaint: 16 weeks pregnat light headed pelvic pain Time Seen by Provider: 12/08/24 22:31 Source: patient Mode of arrival: ambulatory Limitations: no limitations History of Present Illness: Patient is a 29-year-old female that presents to the emergency department with some lightheadedness and pelvic cramping. She is approximately 16 weeks . She denies any vaginal discharge or bleeding. She denies any cough. She does report mild frontal headache. She denies any pain or burning with urination or blood in her urine. She is concerned she may be a little dehydrated from working out in the heat. On arrival her heart rate was elevated at 111. She denies any leg pain or swelling. She presents to the emergency department for further evaluation and treatment. Associated symptoms: Reports headache(s) (Frontal); Deny nausea Related Data Home Medications ?Medication ?Instructions ?Recorded ?Confirmed buspirone 10 mg tablet 10 mg PO TID 04/20/23 Previous Rx's ?Medication ?Instructions ?Recorded ibuprofen 600 mg tablet 600 mg PO Q8H PRN pain #60 t abs 04/20/23 aripiprazole 2 mg tablet (Abilify) 2 mg PO DAILY #30 t abs 05/03/24 bupropion HCl 300 mg 24 hr tablet, 300 mg PO QAM #30 t abs 05/03/24 extended release exenatide 5 mcg/dose (250 5 mcg (0.02 mL) SUBCUT BID # 1.2 mL 05/14/24 mcg/mL)1.2 mL subcutaneous pen injector (Byetta) Allergies Allergy/AdvReac Type Severity Reaction Status Date / Time No Known Allergies Allergy Verified 12/08/24 22:14 Review of Systems 2 General: Reports: 10 or more systems reviewed and unremarkable except in HPI and below Const: Denies: fever(s) or chills Eyes: Denies: eye discharge or eye redness ENMT: Denies: throat pain, enlarged tonsils or odynophagia Card: Denies: chest pain Resp: Denies: dyspnea, productive cough, non-productive cough or wheezing GI: Reports: GI cramping (In the lower abdomen); Denies: nausea, vomiting or diarrhea : Denies: flank pain, difficulty voiding, dysuria or urinary frequency Musc: Denies: neck pain or back pain Skin/Breast: Denies: rash or erythema Neuro: Reports: headache(s) (Frontal) Psych: Denies: anxiety Endo: Denies: polyuria or polydipsia Moise/Lymph: Denies: easy bruising, easy bleeding or petechiae All/Imm: Denies: urticaria, throat swelling or tongue swelling PFSH ED 2 PFSH: Medical History Obesity (BMI 30.0-34.9) PTSD (post-traumatic stress disorder) Anxiety and depression No pertinent past medical history Surgical History (Updated 12/08/24 @ 23:46 by MORENITA Fitzgerald) History of section Family History Mother Hypertension Thyroid disease Diabetes Father Diabetes Brother Diabetes Denies family history of Colon cancer Ovarian cancer Heart disease Hyperlipidemia Breast cancer Uterine cancer Stroke Social History Smoking and tobacco/nicotine status: never used tobacco/nicotine Substance/Drug Use: never Physical Exam 2 Const: COMMON NORMALS: no acute distress, patient oriented x3 and alert G ENERAL APPEARANCE: cooperative ORIENTATION/CONSCIOUSNESS: Yes awake HENMT: COMMON NORMALS: normocephalic, atraumatic, external ears normal, EAC's normal, TM's normal bilaterally and Normal external nose present HEAD & SCALP: normocephalic and atraumatic NOSE: Normal external nose present E XTERNAL EAR: Yes external ears normal EXTERNAL AUDITORY CANAL: EAC's normal TYMPANIC MEMBRANE: TM's normal bilaterally MOUTH: other (Mucous membranes are sticky); no drooling THROAT: posterior oropharynx normal and uvula midline Eye: COMMON NORMALS: Equal, round and reactive pupils present, EOMs intact bilaterally and conjunctivae normal CONJUNCTIVA: Yes conjunctivae normal P UPIL: Yes Equal, round and reactive pupils present Neck/C-Spine: COMMON NORMALS: full ROM and no meningeal signs; negative for no lymphadenopathy CERVICAL SPINE: Yes cervical ROM normal Resp: COMMON NORMALS: normal respiratory effort, No retractions and clear to auscultation bilaterally AUSCULTATION: clear to auscultation bilaterally, no crackles, no rales, no rhonchi and no wheezes Cardio: COMMON NORMALS: regular rhythm RATE: tachycardic RHYTHM: regular rhythm BRUITS: no abdominal aortic bruits GI: INSPECTION: Yes gravid abdomen AUSCULTATION: Yes normoactive bowel sounds PALPATION: Yes Tenderness to palpation present (GI) (Mild right lower quadrant left lower quadrant tenderness with no guarding) and No Guarding due to palpation present (GI) RECTAL EXAM: deferred : COMMON NORMALS: Yes no CVA tenderness BLADDER/KIDNEY EXAM: Yes no CVA tenderness Back/Pelvis: COMMON NORMALS: no CVA tenderness and thoraco-lumbar ROM normal Extremity: COMMON NORMALS: normal to inspection, full ROM, no calf tenderness and no pedal edema Neuro: COMMON NORMALS: patient oriented x3 and CN's II-XII intact bilaterally SENSORIUM/ORIENTATION: Yes alert MENINGEAL SIGNS: Yes no meningeal signs and No nuccal rigidity CRANIAL NERVES: Yes CN normal except as noted C OORDINATION/BALANCE: [id number] test normal SPEECH: speech normal S ENSORY EXAM: Yes extremities MOTOR EXAM: 5/5 motor strength present throughout, Pronator motor function not present, Motor abnormalities not present and Other motor observations present (Turbogenerator Operator strong and equal bilaterally.) C OORDINATION: [id number] test normal Psych: COMMON NORMALS: mental status grossly normal, Normal thought process present, cooperative and speech normal ATTITUDE: Yes calm SPEECH: Yes normal speech THOUGHT PROCESS: Normal thought process present Skin: COMMON NORMALS: no rashes or lesions noted GENERAL SKIN EXAM: no rashes or lesions noted Course 2 ED course: I discussed the case with Dr. Berg. He recommended close follow-up with her TRASH COLLECTOR over the next few days if the symptoms continue. Vital Signs: Vital signs: Vital Signs Temperature 98 F 12/08/24 22:11 Pulse Rate 94 12/09/24 00:32 Respiratory Rate 17 12/08/24 22:11 Blood Pressure 120/81 12/08/24 23:14 Pulse Oximetry 98 12/09/24 00:32 Oxygen Delivery Me thod Room Air 12/08/24 22:11 MDM - Female Medical Decision Making Patient was advised of the exam and lab findings. She was noted to be little hypokalemic and was given some potassium orally here in the emergency department. She has been able to keep this down and denies any nausea or vomiting. Patient did appear mildly dehydrated and was given a liter of fluids. She states she is feeling a bit better. She states she has been out in the heat today and thinks that this for some of her symptoms may be coming from. Patient did have some lower abdominal tenderness but no guarding or rebound tenderness. She does not have an elevated white blood cell count. I advised that we cannot completely rule out appendicitis without a scan, however, her exam and lab findings are less compatible with acute appendicitis. The patient was advised she will need to follow-up with her TRASH COLLECTOR over the next day or 2 if the symptoms continue and return to the emergency department with any worsening symptoms. Patient expressed understanding of all discharge instructions. Differential Diagnosis Likely abdominal pain, acute appendicitis and constipation Lab Data I reviewed the patient's lab results. 12/08/24 23:34 12/08/24 23:34 Laboratory Results WBC 10.44 10^3/uL (3.29-11.43) 12/08/24 23: RBC 4.27 10^6/uL (3.85-5.65) 12/08/24 23:34 Hgb 11.70 g/dL (11.27-16.99) 12/08/24: Hct 35.7 % (36-47) L 12/08/24: MCV 83.6 fl (85-98) L 12/08/24 23:34 MCH 27.4 pg (27-33) 12/08/24 23: MCHC 32.8 g/dL (30-55) 12/08/24: RDW 13.9 % (12.1-15.1) 12/08/24 23: Plt Count 256 10^3/cmm (157-399) 12/08/24 23: MPV 9.7 fL (7.4-10.4) 12/08/24 23: Neut % (Auto) 71.3 % 12/08/24 23: Lymph % (Auto) 20.7 % 12/08/24 23: [place] % (Auto) 5.4 % 12/08/24 23:34 Eos % (Auto) 1.8 % 12/08/24 23: Baso % (Auto) 0.1 % 12/08/24 23:34 Neut # (Auto) 7.45 10^3/uL (1.8-7.7) 12/08/24 23:34 Lymph # (Auto) 2.2 10^3/uL (0.8-4.8) 12/08/24 23:34 [place] # (Auto) 0.6 10^3/uL (0.2-0.9) 12/08/24 23:34 Eos # (Auto) 0.2 10^3/uL (0.0-0.8) 12/08/24 23:34 Baso # (Auto) 0.0 10^3/uL (0.0-0.1) 12/08/24 23:34 Nucleated RBC % (auto) 0 % 12/08/24: Nucleated RBCs # 0.0 /100WBC 12/08/24 23:34 Sodium 137 mmol/L (136-145) 12/08/24 23:34 Potassium 3.2 mmol/L (3.5-5.1) L 12/08/24 23:34 Chloride 101 mmol/L (98-107) 12/08/24 23:34 Carbon Dioxide 22 mmol/L (22-29) 12/08/24 23:34 Anion Gap 17.2 (5-19) 12/08/24 23:34 BUN 5 mg/dL (6-20) L 12/08/24 23:34 Creatinine 0.4 mg/dL (0.5-0.9) L 12/08/24 23:34 GFR Calculation 191.5 mL/min (90-130) H 12/08/24 23:34 Glucose 83 mg/dL (65-115) 12/08/24 23:34 Calculated Osmolality 280 mOsm/kg (285-295) L 12/08/24 23:34 Calcium 9.2 mg/dL (8.5-10.5) 12/08/24 23:34 Total Bilirubin 0.2 mg/dL (0.15-1.2) 12/08/24 23:34 AST 18 U/L (0-32) 12/08/24 23:34 ALT 18 U/L (0-33) 12/08/24 23:34 Alkaline Phosphatase 61 U/L (35-105) 12/08/24 23:34 Total Protein 6.7 g/dL (6.6-8.7) 12/08/24 23:34 Albumin 3.8 g/dL (3.5-5.2) 12/08/24 23:34 Globulin 2.9 g/dL (1.3-4.6) 12/08/24 23:34 Urine Color Yellow (Yellow) 12/08/24 23:12 Urine Appearance Clear (CLEAR) 12/08/24 23:12 Urine pH 5.0 (5-7) 12/08/24 23:12 Ur Specific [place] 1.019 (1.005-1.030) 12/08/24 23:12 Urine Protein Negative (Negative) 12/08/24 23:12 Urine Glucose (UA) Negative (Normal) 12/08/24 23:12 Urine Ketones Negative (Negative) 12/08/24 23:12 Urine Blood Negative (Negative) 12/08/24 23:12 Urine Nitrate Negative (Negative) 12/08/24 23:12 Urine Bilirubin Negative (Negative) 12/08/24 23:12 Urine Urobilinogen 0.2 mg/dL (Negative) 12/08/24 23:12 Ur Leukocyte Esterase Negative (Negative) 12/08/24 23:12 Urine RBC 0-2 /hpf (0-2) 12/08/24 23:12 Urine WBC 0-5 /hpf (0-5) 12/08/24 23:12 Ur Squamous Epith Cells 0-5 /hpf (0-5) 12/08/24 23:12 Amorphous Sediment Not Reportable 12/08/24 23:12 Urine Bacteria None seen /hpf (NONE) 12/08/24 23:12 Hyaline Casts 1.21 /lpf 12/08/24 23:12 No radiology studies performed this visit Critical Care Time 2 Critical Care Time: Critical Care Time: No Discharge Plan Discharge Patient Disposition: Home Clinical Impression: Acute dehydration, Light-headedness, Right lower quadrant abdominal pain affecting in second trimester Condition: Stable Prescriptions: No Action buspirone 10 mg tablet 10 mg PO TID ibuprofen 600 mg tablet 600 mg PO Q8H PRN (Reason: pain) Qty: 60 0RF aripiprazole [Abilify] 2 mg tablet 2 mg PO DAILY Qty: 30 0RF bupropion HCl 300 mg tablet extended release 24 hr 300 mg PO QAM Qty: 30 0RF exenatide [Byetta] 5 mcg/dose (250 mcg/mL) 1.2 mL pen injector 5 mcg SUBCUT BID Qty: 1.2 0RF Discharge Orders: Discharge ED (Routine); Ordered 12/09/24 Ordered By: Arslan Bruce Referrals: Joseph Archuleta MD [Primary Care Provider, Family Practice] Discharge Diet: Usual diet Discharge Activity: Resume usual activity Patient Instructions: Abdominal Pain (ED), Opioid Safety, Pain Management, Patient Portal & Sobia Instructions Activity Restrictions/Additional Instructions: Take your vitamins as directed. Rest, increase fluids. Follow-up with your TRASH COLLECTOR over the next day or 2 if the symptoms continue. Return to the emergency department with any worsening symptoms such as increased pain, fever, vomiting or any other worsening symptoms. Print Language: Armenian Coding Level of Care Code ED Molder [employer]ber for Doni Cazares
[2024-12-08 23:59] LABS: Alanine Aminotransferase 18 U/L (0-33); Albumin Level 3.8 g/dL (3.5-5.2); Alkaline Phosphatase 61 U/L (35-105); Anion Gap 17.2 (5-19); Aspartate Amino Transferase 18 U/L (0-32); Blood Urea Nitrogen 5 mg/dL (6-20); Calcium 9.2 mg/dL (8.5-10.5); Carbon Dioxide 22 mmol/L (22-29); Chloride 101 mmol/L (98-107); Creatinine Clr Calc Pharmacy 218.0095; Globulin 2.9 g/dL (1.3-4.6); Glucose 83 mg/dL (65-115); Osmolality Calculated 280 mOsm/kg (285-295); Potassium 3.2 mmol/L (3.5-5.1); Sodium 137 mmol/L (136-145); Total Protein 6.7 g/dL (6.6-8.7)
[2024-12-09 00:32] VITALS: PULSE 94; O2SAT 98
[2024-12-09 01:20] VITALS: BP 124/86; PULSE 92; O2SAT 98
== END 2024-12-09 01:15 | disposition home or self-care (01) ==
PROVIDERS: Emergency Provider Physician Assistant; PCP Family Medicine
DX: E86.0 Dehydration (principal); R42 Dizziness and giddiness; O26.892 Other specified pregnancy related conditions, second trimester; Z3A.16 16 weeks gestation of pregnancy; R10.31 Right lower quadrant pain
CPT/HCPCS: 80053; 81001; 85025; 99283; J7030; J9999

== ENCOUNTER 2025-04-15 20:57 | Emergency (ER) | payer MEDICAID, SELFPAY ==
[2025-04-15 21:05] VITALS: BP 123/76; PULSE 90; RESP 16; TEMP 36.6; O2SAT 97; BMI 38.0
--- OUTSIDE RECORDS SUMMARY | 2025-04-15 21:06 | XMS_ITS | Encounter Summary ---
Author Organization [employer] [facility] Address [address] [place] [address] Care Team Providers Care Senior Business Intelligence Analyst Name Role Phone Oskar Quezada NP Primary Care Provider Encounter Details Date Type Department Care Team (Latest Contact Info) Description 02/03/2001 Outpatient Historical [facility] Sebastián Lynch MD [address] [place] [address] Dental caries (Primary Dx); Preoperative examination, unspecified Social History Tobacco Use Types Packs/Day Years Used Date Smoking Tobacco: Never Assessed Comments Unknown Sex and Gender Information Value Date Recorded Sex Assigned at Not on file 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
--- OUTSIDE RECORDS SUMMARY | 2025-04-15 21:06 | XMS_ITS | Encounter Summary ---
Author Organization [employer] [facility] Address [address] [place] [address] Care Team Providers Care Supervisor Dyer Name Role Phone Oskar Quezada BAG GRADER Primary Care Provider Encounter Details Date Type Department Care Team (Latest Contact Info) Description 02/12/2000 Outpatient Historical HIS [facility] Sebastián Lynch MD [address] [place] [phone] Acute pharyngitis (Primary Dx); Acute sinusitis, unspecified Social History Tobacco Use Types Packs/Day Years Used Date Smoking Tobacco: Never Assessed Comments Unknown Sex and Gender Information Value Date Recorded Sex Assigned at Not on file 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
--- OUTSIDE RECORDS SUMMARY | 2025-04-15 21:06 | XMS_ITS | Encounter Summary ---
Author Organization [employer] [facility] Address [address] [place] [address] Care Team Providers Care Supervisor Forming Department Name Role Phone Oskar Quezada TECHNICAL SERVICES COORDINATOR Primary Care Provider Encounter Details Date Type Department Care Team (Latest Contact Info) Description 02/26/2000 Outpatient Historical HIS [facility] Sebastián Lynch MD [address] [place] [phone] Acute pharyngitis (Primary Dx); Acute sinusitis, unspecified Social History Tobacco Use Types Packs/Day Years Used Date Smoking Tobacco: Never Assessed Comments Unknown Sex and Gender Information Value Date Recorded Sex Assigned at Not on file 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
--- OUTSIDE RECORDS SUMMARY | 2025-04-15 21:06 | XMS_ITS | Encounter Summary ---
Author Organization [employer] [facility] Address [address] [place] [address] Care Team Providers Care Softball Coach Name Role Phone Oskar Quezada NP Primary Care Provider Encounter Details Date Type Department Care Team (Latest Contact Info) Description 11/11/2000 Outpatient Historical HIS [facility] Sebastián Lynch MD [address] [place] [phone] Unspecified otitis media (Primary Dx) Social History Tobacco Use Types Packs/Day Years Used Date Smoking Tobacco: Never Assessed Comments Unknown Sex and Gender Information Value Date Recorded Sex Assigned at Not on file 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
--- OUTSIDE RECORDS SUMMARY | 2025-04-15 21:06 | XMS_ITS | Clinical Summary ---
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
--- OUTSIDE RECORDS SUMMARY | 2025-04-15 21:06 | XMS_ITS | Encounter Summary ---
Author Organization [employer] [facility] Address [address] [place] [address] Care Team Providers Care Hypo Splasher Name Role Phone Oskar Quezada NP Primary Care Provider Encounter Details Date Type Department Care Team (Latest Contact Info) Description 04/18/1999 Outpatient Historical [facility] Gautam Sawyer NO ADDRESS ON FILE Acute upper respiratory infections of unspecified site (Primary Dx) Social History Tobacco Use Types Packs/Day Years Used Date Smoking Tobacco: Never Assessed Comments Unknown Sex and Gender Information Value Date Recorded Sex Assigned at Not on file 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
--- OUTSIDE RECORDS SUMMARY | 2025-04-15 21:06 | XMS_ITS | Encounter Summary ---
Author Organization [email or web address] [facility] Address [address] [place] [address] Care Team Providers Care Registered Appraiser Name Role Phone Oskar Quezada NP Primary Care Provider Encounter Details Date Type Department Care Team (Latest Contact Info) Description 07/23/1999 Outpatient Historical HIS [facility] Sebastián Lynch MD [address] [place] [phone] Bronchitis, not specified as acute or chronic (Primary Dx) Social History Tobacco Use Types Packs/Day Years Used Date Smoking Tobacco: Never Assessed Comments Unknown Sex and Gender Information Value Date Recorded Sex Assigned at Not on file 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
--- OUTSIDE RECORDS SUMMARY | 2025-04-15 21:06 | XMS_ITS | Encounter Summary ---
Author Organization [employer] [facility] Address [address] [place] [address] Care Team Providers Care Marine Geologist Name Role Phone Oskar Quezada NP Primary Care Provider Encounter Details Date Type Department Care Team (Latest Contact Info) Description 12/11/2001 Outpatient Historical HIS [facility] Sebastián Lynch MD [address] [place] [address] HEMATURIA (Primary Dx) Social History Tobacco Use Types Packs/Day Years Used Date Smoking Tobacco: Never Assessed Comments Unknown Sex and Gender Information Value Date Recorded Sex Assigned at Not on file 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
--- OUTSIDE RECORDS SUMMARY | 2025-04-15 21:06 | XMS_ITS | Encounter Summary ---
Author Organization [employer] [facility] Address [address] [place] [address] Care Team Providers Care Laundry Pricing Clerk Name Role Phone Oskar Quezada NP Primary Care Provider Encounter Details Date Type Department Care Team (Latest Contact Info) Description 02/23/2002 Outpatient Historical HIS [facility] Sebastián Lynch MD [address] [place] [address] SPRAIN NOS (Primary Dx) Social History Tobacco Use Types Packs/Day Years Used Date Smoking Tobacco: Never Assessed Comments Unknown Sex and Gender Information Value Date Recorded Sex Assigned at Not on file 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
--- OUTSIDE RECORDS SUMMARY | 2025-04-15 21:06 | XMS_ITS | Encounter Summary ---
Author Organization [employer] [facility] Address [address] [place] [address] Care Team Providers Care Split Leather Department Supervisor Name Role Phone Oskar Quezada NP Primary Care Provider Encounter Details Date Type Department Care Team (Latest Contact Info) Description 04/04/2000 Outpatient Historical HIS [facility] Sebastián Lynch MD [address] [place] [address] Anomal skull/face bones (Primary Dx) Social History Tobacco Use Types Packs/Day Years Used Date Smoking Tobacco: Never Assessed Comments Unknown Sex and Gender Information Value Date Recorded Sex Assigned at Not on file 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
--- OUTSIDE RECORDS SUMMARY | 2025-04-15 21:06 | XMS_ITS | Encounter Summary ---
Author Organization [employer] [facility] Address [address] [place] [address] Care Team Providers Care Sponge Clipper Name Role Phone Oskar Quezada NP Primary Care Provider Encounter Details Date Type Department Care Team (Latest Contact Info) Description 07/02/2000 Outpatient Historical HIS [facility] Gautam Sawyer NO ADDRESS ON FILE Other and unspecified noninfectious gastroenteritis and colitis(558.9) (Primary Dx) Social History Tobacco Use Types Packs/Day Years Used Date Smoking Tobacco: Never Assessed Comments Unknown Sex and Gender Information Value Date Recorded Sex Assigned at Not on file 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
--- OUTSIDE RECORDS SUMMARY | 2025-04-15 21:06 | XMS_ITS | Continuity of Care Document ---
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 disorder 05624965 Active 2022 JAZZMINE OPAL [facility], [facility] 3 11:36:50 Anxiety 88013704 Active 2022 ELSMERE OPAL [facility], [facility] 3 11:36:59 Strain of tendon of head and neck 084221588 Active 2022 LEELEE ESTRADA null, [facility] 5 16:38:31 Chronic hepatiti s C 890639103 Active 2022 LEELEE ESTRADA null, [facility] 5 16:37:19 Post-tra umatic stress disorder 29537951 Active 2022 LEELEE ESTRADA null, [facility] 5 16:38:22 Vaginal discharg e 030749394 Active 2022 LEELEE ESTRADA null, [facility] 5 16:38:35 Obesity 362669413 Active 2023 LEELEE ESTRADA null, [facility] 5 16:38:38 Acute upper respirat ory infectio n 39523474 Completed 202308/24/2024 Removal Reason: resolved LEELEE pack, [facility] 5 16:37:09 Hypergly cemia 53211086 Active 2023 LEELEE ESTRADA null, [facility] 5 16:37:30 Fatigue 42732456 Active 2023 LEELEE ESTRADA null, [facility] 5 16:37:22 Pregnanc y 02363267 Active 2024 BECCA pack, [facility] 14:29:11 [facility] 16421829331 4106 Active 2024 BECCA pack, [facility] 14:47[facility] Active [facility]24 KIMANI RESENDEZ [facility] 17:14:58 Problem Notes None recorded. Procedures Surgical History Date Name Laterality Status Provider Name and Address Organization Details Recorded Time 12/02/19 25 Date of Last Pap Smear completed KIMANI AMAYA [facility] 02/01/2025 16:52:24 section completed JAZZMINE JOSEPH [facility] 01/31/2023 11:37:46 Imaging Results None recorded. Procedure Notes None recorded. Medical Equipment None Reported. Allergies No known drug allergies Medications Name Sig Start Date Stop Date Status Note LastModified by Organization Details LastModified Time penicilli n V potassium 250 mg tablet TAKE 1 TABLET BY MOUTH EVERY 6 HOURS 01/31 completed Not Available Not Available Not Available venlafaxi ne ER 75 mg capsule,e xtended release 24 hr TAKE 1 CAPSULE BY MOUTH EVERY DAY 10/04 completed Not Available Not Available Not Available ibuprofen 800 mg tablet tid prn 01/31 completed 0; Recorded 03/05/20 17 4:12PM by Kimani noe, Office Visit; Not Available Not Available Not Available naltrexon e 50 mg tablet TAKE ONE TABLET BY MOUTH EVERY DAY 01/12 completed Not Available Not Available Not Available metronida zole 500 mg tablet Take 4 tablets by oral route. 06/17 completed Not Available Not Available Not Available sulfameth oxazole 800 mg-trimet hoprim 160 mg tablet TAKE 1 TABLET BY MOUTH TWICE DAILY 08/25 completed Not Available Not Available Not Available hydrocodo ne 10 mg-acetam inophen 325 mg tablet TAKE 1 TABLET BY MOUTH EVERY 6 HOURS NEEDED FOR PAIN 01/31 completed Not Available Not Available Not Available ketorolac 10 mg tablet TAKE 1 TABLET BY MOUTH THREE TIMES DAILY NEEDED FOR PAIN 08/25 completed Not Available Not Available Not Available amoxicill in 875 mg tablet TAKE 1 TABLET BY MOUTH EVERY 12 HOURS 08/25 completed Not Available Not Available Not Available erythromy maurizio 5 mg/gram (0.5 %) eye ointment APPLY 0.5 INCH RIBBON TO AFFECTED EYE(S) FOUR TIMES DAILY FOR 7 DAYS 01/31 completed Not Available Not Available Not Available chlorprom azine 25 mg tablet TAKE 1 TABLET BY MOUTH THREE TIMES DAILY 01/31 completed Not Available Not Available Not Available omeprazol e 20 mg capsule,d elayed release QD 01/31 completed Recorded 01/30/20 17 3:33PM by Becca Sullivan RN, Office Visit; Refill Quantity : 30; Capsule; Not Available Not Available Not Available ondansetr on 4 mg disintegr ating tablet Place 1 tablet 3 times a day by translin gual route as needed. 2024 active Not Available Not Available Not Avai lable sertralin e 50 mg tablet Take 1 tablet every day by oral route for 90 days. 03/03 completed Not Available Not Available Not Available buspirone 15 mg tablet Take 1 tablet 3 times a day by oral route for 90 days. 08/25 completed Not Available Not Available Not Available medroxypr ogesteron e 150 mg/mL intramusc ular syringe ADMINIST ER AT OFFICE 01/31 completed Not Available Not Available Not Available escitalop vinay 10 mg tablet TAKE ONE TABLET BY MOUTH EVERY DAY 08/25 completed Not Available Not Available Not Available escitalop vinay 20 mg tablet TAKE ONE TABLET BY MOUTH EVERY DAY 08/25 completed Not Available Not Available Not Available bupropion HCl XL 300 mg 24 hr tablet, extended release TAKE 1 TABLET BY MOUTH IN THE MORNING 08/25 completed Not Available Not Available Not Available Wellbutri n XL 150 mg 24 hr tablet, extended release Take 1 tablet every day by oral route. 04/07 completed Not Available Not Available Not Available nitrofura ntoin monohydra te/macroc rystals 100 mg capsule TAKE 1 CAPSULE BY MOUTH TWICE DAILY WITH A MEAL/ FOOD FOR 7 DAYS 10/04 completed Not Available Not Available Not Available iron bid 01/31 completed vo JR/tn; Recorded 01/30/20 17 3:39PM by Becca Sullivan, RN, Office Visit; Refill Quantity : 90; Tablet; Not Available Not Available Not Available Vitamin 1 QD active Not Available Not Available Not Available Vitamin-C QD 01/31 completed 0; Recorded 02/19/20 17 3:28PM by Kimani noe, Office Visit; Not Available Not Available Not Available aripipraz ole 2 mg tablet TAKE 1 TABLET BY MOUTH ONCE DAILY 08/25 completed Not Available Not Available Not Available Vitals Date Recorded Body height Body mass index (BMI) Body weight Respiratory rate Heart rate Oxygen saturation Body temperature Systolic And Diastolic Provider Name and Address Organization Details Last Updated DateTime 5 157.48 cm 39 kg/m2 55014.1 7 g 18 /min 111 /min 98 % 98 [degF] 116/78 mm[Hg] BECCA SULLIVAN [facility] 5 16:13:40 Social History Question Answer Notes LastModified by Organizat ion Details LastModified Time Tobacco Smoking Status [facility] 16:34:30 Do You Have An Advance Directive? No Information n ot available 01/31/2023 Do You Wear A Helmet When Biking? No Information not available 01/31/2023 Are You Blind Or Do You Have Difficulty Seeing? No Information n ot available 01/31/2023 What Is Your Level Of Caffeine Consumption? Moderate Information not available 01/31/2023 Are You Deaf Or Do You Have Serious Difficulty Hearing? No Information not available 01/31/2023 What Type Of Diet Are You Following? REGULAR Information n ot available 01/31/2023 What Is The Highest Grade Or Level Of School You Have Completed Or The Highest Degree You Have Received? HA11338-8 Information not available 01/31/2023 Which Of Your Hands Is Dominant? Right Information n ot available 01/31/2023 What Was The Date Of Your Most Recent Tobacco Screening? 02/15/2025 [email or web address] Information not available 02/15/2025 Do You Use Protection During Sex? Always Information not available 01/31/2023 Do You Use Protection Against STDs? No Information not available 01/31/2023 What Is Your Relationship Status? Single Information not available 01/31/2023 Do You Use Your Seat Belt Or Car Seat Routinely? Yes Information not available 01/31/2023 Are You Sexually Active? Yes Information not available 01/31/2023 Do You Participate In Social Media? Yes Information not available 01/31/2023 Have You Recently Traveled Abroad? No Information not available 01/31/2023 Do You Have Difficulty Walking Or Climbing Stairs? No Information not available 01/31/2023 Are You Currently In School? No Information not available 01/31/2023 What Contraceptive Method Was Reported At Start Of This Visit? IUD Copper Information not available 01/31/2023 Do You Have Any Dietary Restrictions? No Information not available 01/31/2023 Do You Have Any Future Plans To Get ? No, I Don't Want To Become Information not available 01/31/2023 Sex: Unknown Functional Status Question Answer Note LastModified by Organizat ion Details LastModified Time Are you currently employed? Yes Information not available 01/31/2023 Do you have transportation difficulties? No Information not available 01/31/2023 Are you able to care for yourself independently? Yes Information not available 01/31/2023 Do you have difficulty dressing, bathing, grooming, or toileting? No Information not available 01/31/2023 Do you or have you ever used e-cigarettes or vape? Current user of electronic cigarettes Information not available 03/15/2025 What is your exercise level? None Information not available 01/31/2023 Do you use any illicit or recreational drugs? No Information not available 01/31/2023 Do you or have you ever used any other forms of tobacco or nicotine? Yes Information not available 03/15/2025 What is your level of alcohol consumption? None Information not available 01/31/2023 What is your status? Not Information no t available 01/31/2023 Are you able to walk independently without assistance or assistive devices? YESWOREST Information not available 01/31/2023 Do you have difficulty doing errands alone? No Information not available 01/31/2023 Do you or have you ever used any nicotine-free cigarettes, vape, or chewing tobacco? Yes vape [email or web address] Information not available 12/01/2024 Mental Status Question Answer Note LastModified by Organization D etails LastModified Time Do you have difficulty concentrating, remembering or making decisions? No Information no t available 01/31/2023 Family History Relationship Description Onset Age of this Age Resolved Age Notes LastModified by Organization Details LastModified Time Mother Essential hypertension [email or web address] Not available 11:38:17 Mother Diabetes mellitus [email or web address] Not available 2022 11:38:28 Medical History No medical history recorded. Gynecological History Statement/Question Response Abnormal Pap Date of Last Pap Smear 12/01/2024 Date of LMP 08/16/2024 LMP Definite Age at First Child 18 Obstetrics History GPAL:G 5 P 3 0 1 3 Type Value Full Term 3 Spontaneous 1 Living 3 Total 5 Immunizations Vaccine Type Date Status Note Provider Nam e and Address Organization Details Recorded Time Hep B, unspecified formulation 7 completed Not Available [facility] 04/12/2025 16:22:22 Hep B, unspecified formulation 7 completed Not Available [facility] 04/12/2025 16:22:22 polio, unspecified formulation 8 completed Not Available [facility] 04/12/2025 16:22:22 Hib (PRP-T) 8 completed Not Available [facility] 04/12/2025 16:22:22 DTaP 8 completed Not Available [facility] 04/12/2025 16:22:22 polio, unspecified formulation 8 completed Not Available [facility] 04/12/2025 16:22:22 DTP-Hib 8 completed Not Available [facility] 04/12/2025 16:22:22 DTaP 9 completed Not Available [facility] 04/12/2025 16:22:22 MMR 9 completed Not Available [facility] 04/12/2025 16:22:22 Hep B, unspecified formulation 9 completed Not Available [facility] 04/12/2025 16:22:22 Hib (PRP-T) 9 completed Not Available [facility] 04/12/2025 16:22:22 OPV, trivalent 9 completed Not Available [facility] 04/12/2025 16:22:22 DTaP 9 completed Not Available [facility] 04/12/2025 16:22:22 Hib (PRP-T) 9 completed Not Available [facility] 04/12/2025 16:22:22 varicella 1 completed Not Available [facility] 04/12/2025 16:22:22 DTaP 3 completed Not Available [facility] 04/12/2025 16:22:22 IPV 3 completed Not Available [facility] 04/12/2025 16:22:22 MMR 3 completed Not Available [facility] 04/12/2025 16:22:22 Tdap 1 completed Not Available [facility] 04/12/2025 16:22:22 COVID-19, mRNA, LNP-S, PF, 100 mcg/0.5mL dose or 50 mcg/0.25mL dose 1 completed Not Available [facility] 04/12/2025 16:22:22 COVID-19, mRNA, LNP-S, PF, 100 mcg/0.5mL dose or 50 mcg/0.25mL dose 1 completed Not Available [facility] 04/12/2025 16:22:22 COVID-19, mRNA, LNP-S, PF, 100 mcg/0.5mL dose or 50 mcg/0.25mL dose 2 completed Not Available [facility] 04/12/2025 16:22:22 Tdap 5 completed Not Available [facility] 04/12/2025 16:22:22 RSV, bivalent, protein subunit RSVpreF, diluent reconstituted, 0.5 mL, PF 5 completed Not Available [facility] 04/12/2025 16:22:23 Past Encounters Encounter ID Performer Location Encounter Start Date Encounter Closed Date Diagnosis/Indication Diagnosis SNOMED-CT Code Diagnosis ICD10 Code Diagnosis IMO Codes Diagnosis Note [id number] Willian Mead MD [facility] ([facility]) [address] [place] [phone] 02/01/2025 16:28:55 02/01/2025 17:58:35 Gestation period, 24 weeks 125463141 Z3A.24 9512566 Multigravida 651255052 Z 34.82 [id number] LEONARDO MOLINA APRN [facility] ([facility]) [address] [place] [address] [phone] 02/15/2025 13:59:20 02/15/2025 17:06:28 Viral disease 72554036 B34.9 [id number] Willian Mead MD [facility] ([facility]) [address] [place] [address] [phone] 03/01/2025 15:57:31 03/01/2025 16:35:53 08662040 Z34.90 Gestation period, 28 weeks 71370856 Z3A.28 [id number] Willian Mead MD [facility] ([facility]) [address] [place] [address] 03/01/2025 15:51:38 03/02/2025 10:15:56 Gestation period, 28 weeks 51281730 Z3A.28 9788691 Health Concerns Section Related Observation LastModified by Organization Detai ls LastModified Time None Recorded Concern Status LastModified by Organization Details LastModified Time None Recorded Payers Encounter Date Sequence Insurance Name Policy Number Policy Webster Covered Member ID Webster Member ID Guarantor Name 03/01/2025 1 [facility] Chioma Gilliam [id number] Chioma Gilliam Notes Date Note Type Note Provider Name and Address Organization Details Recorded Time 03/01/2025 text/html jr ob routineRep orted by PatientHPIFor associated symptoms, patient reportsvaginal dischargebut reportsno abdominal pain,no cramping,no contractions,normal movement,no bleeding,no vaginal/vulvar itching or irritation,no dysuria,no frequency,no urgency,no hematuria,no fever,no nausea,no emesis,no constipation,no diarrhea/loose stool,no edema,no visual changes,no headache,no dizziness,no decrease in urine volume, andno breathlessness.low back paindenies tobacco, alcohol, or drug use. Daily nicotineROS as noted in the HPI History-Pts last delivery was an emergency c/s d/t breech. Pt states that she would prefer a . Willian Mead MD [address] [place] [address], [phone], [facility] 03/01/2025 16:33:58 OBGyn Episode Ob Episode Information Episode Created Date Number of Fetuses Patient Bloodtype Patient rh Status Prepregnancy Weight lbs Domestic Partner Domestic Partner Phone Father Name Cripple Cutter Status 10/05/19 25 1 A Positive Danis Link OPEN Fetus Data First Name Last Name Admitted to NICU Weight (g) Sex Living Outcome Pediatric Complications Fetus ID Race Codes Race Delivery Type [id number] Problems Problem Notes Planning on .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 Problem Name Start Date End Date Resolution Snomed Code Not e Multigravida 02/01/2025 404564627 Normal in multigravida 11/04/2024 733618359262955 Mayo Calculation Initial Mayo Date Initial Exam Date Initial Exam Provider Initial Ultrasound Date Last Menstrual Period Date Ultra Sound Weeks Gestation 10/04/2024 10/20/2024 08/16/2024 9 Eighteen To Twenty Week Mayo Update Ultra Sound Date Fundal Height At Umbil Quickening Date Ultra Sound Latest Weeks Gestation Final Mayo Confirmed By Final Mayo Confirmed Date Final Mayo Date Ultra Sound Latest Days Gestation 0 05/23/19 26 0 Pre-rafal Flowsheet Flowsheet Date 10/04/2024 Lockwood Score Blood Edema Fundus Height Fundus Units Glucose Ketones Leukocytes Nitrite Labor Signs Protein Cervic Dilation Cervic Effacement Cervic Station Type Weight in lbs Pre/Post Dialysis Refused Weight 193.108205569865 BP Diastolic BP Location Tested BP Systolic BP Type 78 108 Fetus Heart Rate Present Fetus Movement Comments Flowsheet Date 10/20/2024 Lockwood Score Blood Edema Fundus Height Fundus Units Glucose Ketones Leukocytes Nitrite Labor Signs Protein Cervic Dilation Cervic Effacement Cervic Station Type Weight in lbs Pre/Post Dialysis Refused BP Diastolic BP Location Tested BP Systolic BP Type Fetus Heart Rate Present Fetus Movement Comments u/s on 10/20/24, MAYO 05/25/25, E GA 9.0, FHR 164, IUP with FISH=1.089 cm3 Flowsheet Date 11/04/2024 Lockwood Score Blood Edema Fundus Height Fundus Units Glucose Ketones Leukocytes Nitrite Labor Signs Protein Cervic Dilation Cervic Effacement Cervic Station Type Weight in lbs Pre/Post Dialysis Refused Weight 195.652363312752 BP Diastolic BP Location Tested BP Systolic BP Type 80 L arm 110 Fetus Heart Rate Present A 164 Present Fetus Movement A No Comments OBI- intermittent pelvic padmini n with walking Flowsheet Date 12/01/2024 Lockwood Score Blood Edema Fundus Height Fundus Units Glucose Ketones Leukocytes Nitrite Labor Signs Protein Cervic Dilation Cervic Effacement Cervic Station Type Weight in lbs Pre/Post Dialysis Refused Weight 193.422868352354 BP Diastolic BP Location Tested BP Systolic BP Type 72 118 sitting Fetus Heart Rate Present A 151 Present Fetus Movement Comments NOB, pelvic pain when she is up walking Flowsheet Date 12/01/2024 Lockwood Score Blood Edema Fundus Height Fundus Units Glucose Ketones Leukocytes Nitrite Labor Signs Protein Cervic Dilation Cervic Effacement Cervic Station Type Weight in lbs Pre/Post Dialysis Refused BP Diastolic BP Location Tested BP Systolic BP Type Fetus Heart Rate Present Fetus Movement Comments Flowsheet Date 12/07/2024 Lockwood Score Blood Edema Fundus Height Fundus Units Glucose Ketones Leukocytes Nitrite Labor Signs Protein Cervic Dilation Cervic Effacement Cervic Station Type Weight in lbs Pre/Post Dialysis Refused BP Diastolic BP Location Tested BP Systolic BP Type Fetus Heart Rate Present Fetus Movement Comments RA for Home State completed Flowsheet Date 01/03/2025 Lockwood Score Blood Edema Fundus Height Fundus Units Glucose Ketones Leukocytes Nitrite Labor Signs Protein Cervic Dilation Cervic Effacement Cervic Station Type Weight in lbs Pre/Post Dialysis Refused BP Diastolic BP Location Tested BP Systolic BP Type Fetus Heart Rate Present Fetus Movement Comments Flowsheet Date 01/03/2025 Lockwood Score Blood Edema Fundus Height Fundus Units Glucose Ketones Leukocytes Nitrite Labor Signs Protein Cervic Dilation Cervic Effacement Cervic Station none none Negative none neg Type Weight in lbs Pre/Post Dialysis Refused Weight 199.435089703150 BP Diastolic BP Location Tested BP Systolic BP Type 68 110 sitting Fetus Heart Rate Present A 144 Present Fetus Movement A Yes Comments Pelvic pain when walking Flowsheet Date 01/10/2025 Lockwood Score Blood Edema Fundus Height Fundus Units Glucose Ketones Leukocytes Nitrite Labor Signs Protein Cervic Dilation Cervic Effacement Cervic Station Type Weight in lbs Pre/Post Dialysis Refused BP Diastolic BP Location Tested BP Systolic BP Type Fetus Heart Rate Present Fetus Movement Comments u/s on 01/03/25, MAYO 05/25/25, EGA 19.5, vertex presentation with FHR 138. Anterior placenta, EFW 315 g 35.7%, anatomy appears unremarkable, without visualized abnormality. Flowsheet Date 02/01/2025 Lockwood Score Blood Edema Fundus Height Fundus Units Glucose Ketones Leukocytes Nitrite Labor Signs Protein Cervic Dilation Cervic Effacement Cervic Station 24 cm none none Negative neg Type Weight in lbs Pre/Post Dialysis Refused Weight 202.840042513006 BP Diastolic BP Location Tested BP Systolic BP Type 78 118 sitting Fetus Heart Rate Present A 148 Present Fetus Movement A Yes Comments occ mild abdominal pain, traci ma-face/ankles,nausea, headache Flowsheet Date 02/15/2025 Lockwood Score Blood Edema Fundus Height Fundus Units Glucose Ketones Leukocytes Nitrite Labor Signs Protein Cervic Dilation Cervic Effacement Cervic Station Type Weight in lbs Pre/Post Dialysis Refused Weight 206.004785762151 BP Diastolic BP Location Tested BP Systolic BP Type 78 120 Fetus Heart Rate Present Fetus Movement Comments Flowsheet Date 03/01/2025 Lockwood Score Blood Edema Fundus Height Fundus Units Glucose Ketones Leukocytes Nitrite Labor Signs Protein Cervic Dilation Cervic Effacement Cervic Station Type Weight in lbs Pre/Post Dialysis Refused BP Diastolic BP Location Tested BP Systolic BP Type Fetus Heart Rate Present Fetus Movement Comments Flowsheet Date 03/01/2025 Lockwood Score Blood Edema Fundus Height Fundus Units Glucose Ketones Leukocytes Nitrite Labor Signs Protein Cervic Dilation Cervic Effacement Cervic Station 28 cm none 1+ Type Weight in lbs Pre/Post Dialysis Refused Weight 213.692681269403 BP Diastolic BP Location Tested BP Systolic BP Type 78 116 Fetus Heart Rate Present Fetus Movement A Yes Comments low back pain Flowsheet Date 03/08/2025 Lockwood Score Blood Edema Fundus Height Fundus Units Glucose Ketones Leukocytes Nitrite Labor Signs Protein Cervic Dilation Cervic Effacement Cervic Station Type Weight in lbs Pre/Post Dialysis Refused BP Diastolic BP Location Tested BP Systolic BP Type Fetus Heart Rate Present Fetus Movement Comments Flowsheet Date 03/15/2025 Lockwood Score Blood Edema Fundus Height Fundus Units Glucose Ketones Leukocytes Nitrite Labor Signs Protein Cervic Dilation Cervic Effacement Cervic Station none trace Type Weight in lbs Pre/Post Dialysis Refused Weight [id number] BP Diastolic BP Location Tested BP Systolic BP Type 76 116 Fetus Heart Rate Present A 148 Present Fetus Movement A Decreased Comments slower movement, low b ack pain, heartburn, pelvic pressure, tightness in abd with walking. Flowsheet Date 03/29/2025 Lockwood Score Blood Edema Fundus Height Fundus Units Glucose Ketones Leukocytes Nitrite Labor Signs Protein Cervic Dilation Cervic Effacement Cervic Station 32 cm none 1+ Negative Dickson Jacob 1+ Type Weight in lbs Pre/Post Dialysis Refused Weight 213.246427028728 BP Diastolic BP Location Tested BP Systolic BP Type 74 118 sitting Fetus Heart Rate Present A 144 Present Fetus Movement A Decreased Comments abd pain/tightning when she walks, low back pain, pelvic pain, hip pain, heartburn, script sent for rsv and Tdap. Flowsheet Date 04/12/2025 Lockwood Score Blood Edema Fundus Height Fundus Units Glucose Ketones Leukocytes Nitrite Labor Signs Protein Cervic Dilation Cervic Effacement Cervic Station none trace Negative Cramping neg Type Weight in lbs Pre/Post Dialysis Refused Weight 215.380116580498 BP Diastolic BP Location Tested BP Systolic BP Type 78 132 sitting Fetus Heart Rate Present A 156 Present Fetus Movement A Yes Comments increased vaginal pressure, pelvic pain, abdominal pain, back pain, cramping Menstrual History Last Menstrual Date Menses Monthly On Bcp Conception Prior Menses Frequency Hcg Plus Date Menarche Onset Age 0308/16/2024 Genetic Screening And Infection History Question Response Note Patient's Age Will Be 35 Yea rs Or Older At Estimated Date of Delivery false Thalassemia (Botswanan, English, Mediterranean, Or Background): MCV < 80 false Neural Tube Defect (Meningom yelocele, Spina Bifida, Or Anencephaly) false Congenital Heart Defect false Down Syndrome false Jacky-Sachs (eg, Confucianism, Cajun , Martiniquais-Surinamese) false Ronald Disease false Sickle Cell Disease Or Trait () false Hemophilia Or Other Blood Disorders false Muscular Dystrophy false Cystic Fibrosis false Cierra's Chorea false Intellectual Disability/Autism false If Yes, Was Person Tested For Fragile X? false Other Inherited Genetic Or C hromosomal Disorder false Maternal Metabolic Disorder (eg, Type 1 Diabetes, PKU) false Patient Or Baby's Father Had A Child With Defects Not Listed Above false Recurrent Loss, Or A Stillbirth true 1 miscarriage Medications (including Suppl ements, Vitamins, Herbs, OTC Drugs), Illicit/Recreational Drugs, Alcohol true vitamins If Yes, Agent(s) And Strength/Dosage false Any Other Genetic History false Live With Someone With TB Or Exposed To TB false Patient Or Partner Has Histo ry Of Genital Herpes false Rash Or Viral Illness Since Last Menstrual Period false History Of STD, Gonorrhea, C hlamydia, HPV, Syphilis false Other Infection History false History of HIV false History of Hepatitis true history of hep c, noted in chart. states that she retested and was negative Prior GBS-infected child false Hemoglobinopathy Or Carrier false Other Structural Defect false Recent Travel History Outside of Country false Mental Retardation/Autism false Delivery Information Delivery Date Delivery Type Labor Anesthesia Weeks Gestation Incision Type Labor Labor Length Hrs Delivered By Post Complications Tubal Sterilization Discharge Date Comments Discharge Information Feeding Method Contraceptive Method Maternal HG B and HCT Levels
--- OUTSIDE RECORDS SUMMARY | 2025-04-15 21:06 | XMS_ITS | Encounter Summary ---
Author Organization [employer] [facility] Address [address] [place] [address] Care Team Providers Care Principal Account Clerk Name Role Phone Oskar Quezada NP Primary Care Provider Encounter Details Date Type Department Care Team (Latest Contact Info) Description 02/26/1999 Outpatient Historical HIS [facility] Sebastián Lynch MD [address] [place] [id number] Unspecified otitis media (Primary Dx) Social History Tobacco Use Types Packs/Day Years Used Date Smoking Tobacco: Never Assessed Comments Unknown Sex and Gender Information Value Date Recorded Sex Assigned at Not on file Legal 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
--- OUTSIDE RECORDS SUMMARY | 2025-04-15 21:06 | XMS_ITS | Encounter Summary ---
Author Organization [employer] [facility] Address [address] [place] [address] Care Team Providers Care Registered Safety Engineer Name Role Phone Oskar Quezada NP Primary Care Provider Encounter Details Date Type Department Care Team (Latest Contact Info) Description 10/23/1999 Outpatient Historical 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
--- OUTSIDE RECORDS SUMMARY | 2025-04-15 21:06 | XMS_ITS | Encounter Summary ---
Author Organization [employer] [facility] Address [address] [place] [address] Care Team Providers Care Correctional Supervisor Lieutenant Name Role Phone Oskar Quezada NP Primary Care Provider Encounter Details Date Type Department Care Team (Latest Contact Info) Description 06/08/2002 Outpatient Historical HIS [facility] Sebastián Lynch MD [address] [place] [address] OTITIS MEDIA NOS (Primary Dx) Social History Tobacco Use Types Packs/Day Years Used Date Smoking Tobacco: Never Assessed Comments Unknown Sex and Gender Information Value Date Recorded Sex Assigned at Not on file Legal 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
--- OUTSIDE RECORDS SUMMARY | 2025-04-15 21:06 | XMS_ITS | Data Portability ---
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 Discharge Information Feeding Method Contraceptive Method Maternal HG B and HCT Levels Ob Episode Information Episode Created Date Number of Fetuses Patient Bloodtype Patient rh Status Prepregnancy Weight lbs Domestic Partner Domestic Partner Phone Father Name Needlemaker Status 10/05/19 25 1 CLOSED Fetus Data First Name Last Name Admitted to NICU Weight (g) Sex Living Outcome Pediatric Complications Fetus ID Race Codes Race Delivery Type 3231.84 3 M Full Term 8272 VAGINAL Mayo Calculation Initial Mayo Date Initial Exam Date Initial Exam Provider Initial Ultrasound Date Last Menstrual Period Date Ultra Sound Weeks Gestation 0 Eighteen To Twenty Week Mayo Update Ultra Sound Date Fundal Height At Umbil Quickening Date Ultra Sound Latest Weeks Gestation Final Mayo Confirmed By Final Mayo Confirmed Date Final Mayo Date Ultra Sound Latest Days Gestation 0 0 Menstrual History Last Menstrual Date Menses Monthly On Bcp Conception Prior Menses Frequency Hcg Plus Date Menarche Onset Age Delivery Information Delivery Date Delivery Type Labor Anesthesia Weeks Gestation Incision Type Labor Labor Length Hrs Delivered By Post Complications Tubal Sterilization Discharge Date Comments 6 None Discharge Information Feeding Method Contraceptive Method Maternal HG B and HCT Levels Ob Episode Information Episode Created Date Number of Fetuses Patient Bloodtype Patient rh Status Prepregnancy Weight lbs Domestic Partner Domestic Partner Phone Father Name Needlemaker Status 10/05/19 1 CLOSED Fetus Data First Name Last Name Admitted to NICU Weight (g) Sex Living Outcome Pediatric Complications Fetus ID Race Codes Race Delivery Type 3401.94 F Full Term 8271 VAGINAL Mayo Calculation Initial Mayo Date Initial Exam Date Initial Exam Provider Initial Ultrasound Date Last Menstrual Period Date Ultra Sound Weeks Gestation 0 Eighteen To Twenty Week Mayo Update Ultra Sound Date Fundal Height At Umbil Quickening Date Ultra Sound Latest Weeks Gestation Final Mayo Confirmed By Final Mayo Confirmed Date Final Mayo Date Ultra Sound Latest Days Gestation 0 0 Menstrual History Last Menstrual Date Menses Monthly On Bcp Conception Prior Menses Frequency Hcg Plus Date Menarche Onset Age Delivery Information Delivery Date Delivery Type Labor Anesthesia Weeks Gestation Incision Type Labor Labor Length Hrs Delivered By Post Complications Tubal Sterilization Discharge Date Comments 5 Regional- idural Discharge Information Feeding Method Contraceptive Method Maternal HG B and HCT Levels Ob Episode Information Episode Created Date Number of Fetuses Patient Bloodtype Patient rh Status Prepregnancy Weight lbs Domestic Partner Domestic Partner Phone Father Name Needlemaker Status 10/05/19 1 A Positive Danis Walker OPEN Fetus Data First Name Last Name Admitted to NICU Weight (g) Sex Living Outcome Pediatric Complications Fetus ID Race Codes Race Delivery Type [id number] Problems Problem Notes Planning on .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 Problem Name Start Date End Date Resolution Snomed Code Not e Multigravida 02/01/2025 121747992 Normal in multigravida 11/04/2024 [id number] Mayo Calculation Initial Mayo Date Initial Exam [...] Weight in lbs Pre/Post Dialysis Refused Weight 193.320959337843 BP Diastolic BP Location Tested BP Systolic [...] Weight in lbs Pre/Post Dialysis Refused Weight 195.607581060270 BP Diastolic BP Location Tested BP Systolic BP Type 80 L arm 110 Fetus Heart Rate Present A 164 Present Fetus Movement A No Comments OBI- intermittent pelvic padmini n with walking Flowsheet Date 12/01/2024 [place] Score Blood Edema Fundus Height Fundus Units Glucose Ketones Leukocytes Nitrite Labor Signs Protein Cervic Dilation Cervic Effacement Cervic Station Type Weight in lbs Pre/Post Dialysis Refused Weight 193.851161314267 BP Diastolic BP Location Tested BP Systolic [...] Weight in lbs Pre/Post Dialysis Refused Weight 199.656895506193 BP Diastolic BP Location Tested BP Systolic [...] Weight in lbs Pre/Post Dialysis Refused Weight 202.448857342430 BP Diastolic BP Location Tested BP Systolic BP Type 78 118 sitting Fetus Heart Rate Present A 148 Present Fetus Movement A Yes Comments occ mild abdominal pain, traci ma-face/ankles,nausea, headache Flowsheet Date 02/15/2025 Lockwood Score Blood Edema Fundus Height Fundus Units Glucose Ketones Leukocytes Nitrite Labor Signs Protein Cervic Dilation Cervic Effacement Cervic Station Type Weight in lbs Pre/Post Dialysis Refused Weight 206.007377015553 BP Diastolic BP Location Tested BP Systolic [...] Weight in lbs Pre/Post Dialysis Refused Weight 213.973208660933 BP Diastolic BP Location Tested BP Systolic [...] Weight in lbs Pre/Post Dialysis Refused Weight 210.232586667361 BP Diastolic BP Location Tested BP Systolic [...] Cervic Station 32 cm none 1+ Negative Monroe Jacob 1+ Type Weight in lbs Pre/Post Dialysis Refused Weight 213.948596597162 BP Diastolic BP Location Tested BP Systolic [...] Weight in lbs Pre/Post Dialysis Refused Weight 215.793171538156 BP Diastolic BP Location Tested BP Systolic [...] At Estimated Date of Delivery false Thalassemia (Croatian, Tamazight, Mediterranean, Or Background): MCV < 80 false Neural Tube Defect (Meningom yelocele, Spina Bifida, Or Anencephaly) false Congenital Heart Defect false Down Syndrome false Jacky-Sachs (eg, Yazdanism, Cajun , Monegasque-[place]) false Ronald Disease false Sickle Cell Disease Or Trait () false Hemophilia Or Other Blood Disorders false Muscular Dystrophy false Cystic Fibrosis false [place]'s Chorea false Intellectual Disability/Autism false If Yes, [...]
--- OUTSIDE RECORDS SUMMARY | 2025-04-15 21:06 | XMS_ITS | Encounter Summary ---
Author Organization [facility] Address [address] [place] [address] Care Team Providers Care Nurse First Aid Name Role Phone Oskar Quezada NP Primary Care Provider Encounter Details Date Type Department Care Team (Latest Contact Info) Description 06/30/2001 Outpatient Historical [facility] Sebastián Lynch MD [address] [place] [address] URIN TRACT INFECTION NOS (Primary Dx) Social History Tobacco Use Types Packs/Day Years Used Date Smoking Tobacco: Never Assessed Comments Unknown Sex and Gender Information Value Date Recorded Sex Assigned at Not on file Legal Sex Female 5:49 AM [employer] Gender Identity Not on file Sexual Orientation Not on file documented as of this encounter Plan of Treatment Not on file documented as of this encounter Visit Diagnoses Diagnosis Urinary tract infection, site not specified- Primary documented in this encounter Care Teams Nurse First Aid Relationship Specialty Start Date End Date Oskar Quezada NP PCP - General NURSE PRACTITIONER 02/17/13 documented as of this encounter
--- OUTSIDE RECORDS SUMMARY | 2025-04-15 21:07 | XMS_ITS | Continuity of Care Document ---
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 Organization Details Recorded Time 12/02/19 25 Date of Last Pap Smear completed KIMANI AMAYA [facility], [place] 02/01/2025 16:52:24 section completed JAZZMINESA JOSEPH [facility], [place] 01/31/2023 11:37:46 Imaging Results None recorded. Procedure [...] 0; Recorded 03/05/20 17 4:12PM by Kimani [email or web address], Office Visit; Not Available Not Available Not [...] Not Available Not Available Not Available escitalop vinya 20 mg tablet TAKE ONE TABLET BY [...] Not Available Not Available Not Available Vitals None Recorded Social History Question Answer Notes LastModified by Organizat ion Details LastModified Time Tobacco Smoking Status Never Smoker KIMANI pack, [facility], [facility] 01/03/2025 16:34:30 Do You Have An Advance [...] Or The Highest Degree You Have Received? FS69938-4 Information not available 01/31/2023 Which Of Your [...] Functional Status Question Answer Note LastModified by [employer] ion Details LastModified Time Are you currently [...] unspecified formulation 7 completed Not Available [facility] 04/12/2025 16:22:22 Hep B, unspecified formulation 7 completed Not Available [facility] 04/12/2025 16:22:22 polio, unspecified formulation 8 completed Not Available [facility] 04/12/2025 16:22:22 Hib (PRP-T) 8 completed Not Available [facility] 04/12/2025 16:22:22 DTaP 8 completed Not Available [facility] 04/12/2025 16:22:22 polio, unspecified formulation 8 completed Not Available [facility] 04/12/2025 16:22:22 DTP-Hib 8 completed Not Available [facility] 04/12/2025 16:22:22 DTaP 9 completed Not Available [facility] 04/12/2025 16:22:22 MMR 9 completed Not Available [facility] 04/12/2025 16:22:22 Hep B, unspecified formulation 9 completed Not Available [facility] 04/12/2025 16:22:22 Hib (PRP-T) 9 completed Not Available [facility] 04/12/2025 16:22:22 OPV, trivalent 9 completed Not Available [facility] 04/12/2025 16:22:22 DTaP 9 completed Not Available [facility] 04/12/2025 16:22:22 Hib (PRP-T) 9 completed Not Available [facility] 04/12/2025 16:22:22 varicella 1 completed Not Available [facility] 04/12/2025 16:22:22 DTaP 3 completed Not Available [facility] 04/12/2025 16:22:22 IPV 3 completed Not Available [facility] 04/12/2025 16:22:22 MMR 3 completed Not Available [facility] 04/12/2025 16:22:22 Tdap 1 completed Not Available [facility] 04/12/2025 16:22:22 COVID-19, mRNA, LNP-S, PF, 100 mcg/0.5mL dose or 50 mcg/0.25mL dose 1 completed Not Available [facility] 04/12/2025 16:22:22 COVID-19, mRNA, LNP-S, PF, 100 mcg/0.5mL dose or 50 mcg/0.25mL dose 1 completed Not Available [facility] 04/12/2025 16:22:22 COVID-19, mRNA, LNP-S, PF, 100 mcg/0.5mL dose or 50 mcg/0.25mL dose 2 completed Not Available [facility] 04/12/2025 16:22:22 Tdap 5 completed Not Available [facility] 04/12/2025 16:22:22 RSV, bivalent, protein subunit RSVpreF, diluent reconstituted, 0.5 mL, PF 5 completed Not Available [facility] 04/12/2025 16:22:23 Past Encounters Encounter ID Performer Location Encounter Start Date Encounter Closed Date Diagnosis/Indication Diagnosis SNOMED-CT Code Diagnosis ICD10 Code Diagnosis IMO Codes Diagnosis Note [id number] LEONARDO MOLINA APRN [facility] ([facility]) [address] [place] [address] [phone] 02/15/2025 13:59:20 02/15/2025 17:06:28 Viral disease 24379629 B34.9 [id number] Willian Mead MD [facility] ([facility]) [address] [place] [address] [phone] 03/01/2025 15:57:31 03/01/2025 16:35:53 [id number] Z34.90 Gestation period, 28 weeks 05062957 Z3A.28 [id number] Willian Mead MD [facility] ([facility]) [address] [place] [address] [phone] 03/01/2025 15:51:38 03/02/2025 10:15:56 Gestation period, 28 weeks 01175576 Z3A.28 [id number] Willian Mead MD [facility] ([facility]) [address] [place] [address] [phone] 03/08/2025 11:52:33 03/08/2025 13:53:06 Health Concerns Section Related Observation LastModified by Organization Detai ls LastModified Time None Recorded Concern Status LastModified by Organization Details LastModified Time None Recorded Payers Encounter Date Sequence Insurance Name Policy Number Policy Webster Covered Member ID Webster Member ID Guarantor Name 03/08/2025 1 [facility] (MEDICAID HMO) Chioma Gilliam [id number] Chioma Gilliam OBGyn Episode Ob Episode Information Episode Created Date Number of Fetuses Patient Bloodtype Patient rh Status Prepregnancy Weight lbs Domestic Partner Domestic Partner Phone Father Name Claim Inspector Status 10/05/19 25 1 A Positive Danis Walker OPEN Fetus Data First Name Last Name Admitted to NICU Weight (g) Sex Living Outcome Pediatric Complications Fetus ID Race Codes Race Delivery Type [id number] Problems Problem Notes Planning on .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 Problem Name Start Date End Date Resolution Snomed Code Not e Multigravida 02/01/2025 [id number] Normal in multigravida 11/04/2024 [id number] Jasvir Calculation Initial Jasvir Date Initial Exam Date Initial Exam Provider Initial Ultrasound Date Last Menstrual Period Date Ultra Sound Weeks Gestation 10/04/2024 10/20/2024 08/16/2024 9 Eighteen To Twenty Week Jasvir Update Ultra Sound Date Fundal Height At Umbil Quickening Date Ultra Sound Latest Weeks Gestation Final Jasvir Confirmed By Final Jasvir Confirmed Date Final Jasvir Date Ultra Sound Latest Days Gestation 0 05/23/19 26 0 Pre-rafal Flowsheet Flowsheet Date 10/04/2024 Lockwood Score Blood Edema Fundus Height Fundus Units Glucose Ketones Leukocytes Nitrite Labor Signs Protein Cervic Dilation Cervic Effacement Cervic Station Type Weight in lbs Pre/Post Dialysis Refused Weight 193.988906311579 BP Diastolic BP Location Tested BP Systolic [...] Present Fetus Movement Comments u/s on 10/20/24, JASVIR 05/25/25, E GA 9.0, FHR 164, IUP with FISH=1.089 cm3 Flowsheet Date 11/04/2024 Lockwood Score Blood Edema Fundus Height Fundus Units Glucose Ketones Leukocytes Nitrite Labor Signs Protein Cervic Dilation Cervic Effacement Cervic Station Type Weight in lbs Pre/Post Dialysis Refused Weight 195.410806618836 BP Diastolic BP Location Tested BP Systolic [...] Weight in lbs Pre/Post Dialysis Refused Weight 193.608719861997 BP Diastolic BP Location Tested BP Systolic [...] Weight in lbs Pre/Post Dialysis Refused Weight 199.970631930293 BP Diastolic BP Location Tested BP Systolic [...] Present Fetus Movement Comments u/s on 01/03/25, JASVIR 05/25/25, EGA 19.5, vertex presentation with FHR 138. Anterior placenta, EFW 315 g 35.7%, anatomy appears unremarkable, without visualized abnormality. Flowsheet Date 02/01/2025 Lockwood Score Blood Edema Fundus Height Fundus Units Glucose Ketones Leukocytes Nitrite Labor Signs Protein Cervic Dilation Cervic Effacement Cervic Station 24 cm none none Negative neg Type Weight in lbs Pre/Post Dialysis Refused Weight 202.454330741103 BP Diastolic BP Location Tested BP Systolic BP Type 78 118 sitting Fetus Heart Rate Present A 148 Present Fetus Movement A Yes Comments occ mild abdominal pain, traci ma-face/ankles,nausea, headache Flowsheet Date 02/15/2025 Lockwood Score Blood Edema Fundus Height Fundus Units Glucose Ketones Leukocytes Nitrite Labor Signs Protein Cervic Dilation Cervic Effacement Cervic Station Type Weight in lbs Pre/Post Dialysis Refused Weight 206.361108033555 BP Diastolic BP Location Tested BP Systolic [...] Weight in lbs Pre/Post Dialysis Refused Weight 213.293407535064 BP Diastolic BP Location Tested BP Systolic [...] Weight in lbs Pre/Post Dialysis Refused Weight 210.752887142679 BP Diastolic BP Location Tested BP Systolic [...] Cervic Station 32 cm none 1+ Negative [place] Jacob 1+ Type Weight in lbs Pre/Post Dialysis Refused Weight 213.608848004188 BP Diastolic BP Location Tested BP Systolic [...] Weight in lbs Pre/Post Dialysis Refused Weight 215.129233843728 BP Diastolic BP Location Tested BP Systolic [...] At Estimated Date of Delivery false Thalassemia (Sami, [place], Mediterranean, Or Background): MCV < 80 false Neural Tube Defect (Meningom yelocele, Spina Bifida, Or Anencephaly) false Congenital Heart Defect false Down Syndrome false Jacky-Sachs (eg, Yarsanism, Cajun , Mohawk-Equality) false Ronald Disease false Sickle Cell Disease Or Trait () false Hemophilia Or Other Blood Disorders false Muscular Dystrophy false Cystic Fibrosis false Walker's Chorea false Intellectual Disability/Autism false If Yes, [...]
--- OUTSIDE RECORDS SUMMARY | 2025-04-15 21:07 | XMS_ITS | Encounter Summary ---
Author Organization [employer] [facility] Address [address] [place] [address] Care Team Providers Care Field Service Technician Name Role Phone Oskar Quezada NP Primary Care Provider Encounter Details Date Type Department Care Team (Latest Contact Info) Description 02/12/1999 Outpatient Historical [facility] Sebastián Lynch MD [address] [place] [address] Unspecified otitis media (Primary Dx); Impacted cerumen Social History Tobacco Use Types Packs/Day Years Used Date Smoking Tobacco: Never Assessed Comments Unknown Sex and Gender Information Value Date Recorded Sex Assigned at Not on file Legal Sex Female 5:49 AM [employer] Gender Identity Not on file Sexual Orientation Not on file documented as of this encounter Plan of Treatment Not on file documented as of this encounter Visit Diagnoses Diagnosis Unspecified otitis media- Primary Impacted cerumen documented in this encounter Care Teams Field Service Technician Relationship Specialty Start Date End Date Oskar Quezada NP PCP - General NURSE PRACTITIONER 02/17/13 documented as of this encounter
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
--- OUTSIDE RECORDS SUMMARY | 2025-04-15 21:07 | XMS_ITS | Continuity of Care Document ---
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 BP Location Tested BP Systolic [...] Weight in lbs Pre/Post Dialysis Refused Weight 199.812353933800 BP Diastolic BP Location Tested BP Systolic [...] Weight in lbs Pre/Post Dialysis Refused Weight 202.024842527121 BP Diastolic BP Location Tested BP Systolic BP Type 78 118 sitting Fetus Heart Rate Present A 148 Present Fetus Movement A Yes Comments occ mild abdominal pain, traci ma-face/ankles,nausea, headache Flowsheet Date 02/15/2025 Lockwood Score Blood Edema Fundus Height Fundus Units Glucose Ketones Leukocytes Nitrite Labor Signs Protein Cervic Dilation Cervic Effacement Cervic Station Type Weight in lbs Pre/Post Dialysis Refused Weight 206.186355289314 BP Diastolic BP Location Tested BP Systolic [...] Weight in lbs Pre/Post Dialysis Refused Weight 213.929531545302 BP Diastolic BP Location Tested BP Systolic [...] Weight in lbs Pre/Post Dialysis Refused Weight 210.892844248085 BP Diastolic BP Location Tested BP Systolic [...] Cervic Station 32 cm none 1+ Negative Austin Jacob 1+ Type Weight in lbs Pre/Post Dialysis Refused Weight 213.182823019485 BP Diastolic BP Location Tested BP Systolic [...] Weight in lbs Pre/Post Dialysis Refused Weight 215.108010877022 BP Diastolic BP Location Tested BP Systolic [...] At Estimated Date of Delivery false Thalassemia (Welsh, German, Mediterranean, Or Background): MCV < 80 false Neural Tube Defect (Meningom yelocele, Spina Bifida, Or Anencephaly) false Congenital Heart Defect false Down Syndrome false Jacky-Sachs (eg, Synagogue, Cajun , English-Sao Tomean) false Ronald Disease false Sickle Cell Disease Or Trait () false Hemophilia Or Other Blood Disorders false Muscular Dystrophy false Cystic Fibrosis false Kent's Chorea false Intellectual Disability/Autism false If Yes, [...]
--- OUTSIDE RECORDS SUMMARY | 2025-04-15 21:07 | XMS_ITS | Encounter Summary ---
Author Organization [employer] [facility] Address [address] [place] [address] Care Team Providers Care Policy Analyst Name Role Phone Oskar Quezada NP Primary Care Provider Encounter Details Date Type Department Care Team (Latest Contact Info) Description 07/20/1998 Outpatient Historical HIS [facility] Sebastián Lynch MD [address] [place] [address] Bronchitis, not specified as acute or chronic (Primary Dx) Social History Tobacco Use Types Packs/Day Years Used Date Smoking Tobacco: Never Assessed Comments Unknown Sex and Gender Information Value Date Recorded Sex Assigned at Not on file 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
--- OUTSIDE RECORDS SUMMARY | 2025-04-15 21:07 | XMS_ITS | Encounter Summary ---
Author Organization [employer] [facility] Address [address] [place] [address] Care Team Providers Care Deputy Sheriff Custody Name Role Phone Oskar Quezada NP Primary Care Provider Encounter Details Date Type Department Care Team (Latest Contact Info) Description 11/17/2001 Outpatient Historical HIS [facility] Sebastián Lynch MD [address] [place] [address] URIN TRACT INFECTION NOS (Primary Dx) Social History Tobacco Use Types Packs/Day Years Used Date Smoking Tobacco: Never Assessed Comments Unknown Sex and Gender Information Value Date Recorded Sex Assigned at Not on file 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
--- OUTSIDE RECORDS SUMMARY | 2025-04-15 21:07 | XMS_ITS | Encounter Summary ---
Author Organization [employer] [facility] Address [address] [place] [address] Care Team Providers Care Library Attendant Name Role Phone Oskar Quezada NP Primary Care Provider Encounter Details Date Type Department Care Team (Latest Contact Info) Description 07/27/2001 Outpatient Historical [facility] Sebastián Lynch MD [address] [place] [address] URIN TRACT INFECTION NOS (Primary Dx) Social History Tobacco Use Types Packs/Day Years Used Date Smoking Tobacco: Never Assessed Comments Unknown Sex and Gender Information Value Date Recorded Sex Assigned at Not on file 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
--- OUTSIDE RECORDS SUMMARY | 2025-04-15 21:07 | XMS_ITS | Encounter Summary ---
Author Organization [employer] [facility] Address [address] [place] [address] Care Team Providers Care Diamond Setter Name Role Phone Oskar Quezada NP Primary Care Provider [phone] Encounter Details Date Type Department Care Team (Latest Contact Info) Description 11/17/1998 Outpatient Historical HIS [facility] Sebastián Lynch MD [address] [place] [address] Abdominal pain, unspecified site (Primary Dx); Diarrhea Social History Tobacco Use Types Packs/Day Years Used Date Smoking Tobacco: Never Assessed Comments Unknown Sex and Gender Information Value Date Recorded Sex Assigned at Not on file 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
--- OUTSIDE RECORDS SUMMARY | 2025-04-15 21:07 | XMS_ITS | Encounter Summary ---
Author Organization [email or web address] [facility] Address [address] [place] [address] Care Team Providers Care Felt Tipping Machine Tender Name Role Phone Oskar Quezada NP Primary Care Provider Encounter Details Date Type Department Care Team (Latest Contact Info) Description 06/19/1998 Outpatient Historical HIS [facility] Sebastián Lynch MD [address] [place] [address] Unspecified otitis media (Primary Dx) Social History Tobacco Use Types Packs/Day Years Used Date Smoking Tobacco: Never Assessed Comments Unknown Sex and Gender Information Value Date Recorded Sex Assigned at Not on file Legal Sex Female 5:49 AM NURSE RECRUITER Gender Identity Not on file Sexual Orientation Not on file documented as of this encounter Plan of Treatment Not on file documented as of this encounter Visit Diagnoses Diagnosis Unspecified otitis media- Primary documented in this encounter Care Teams Felt Tipping Machine Tender Relationship Specialty Start Date End Date Oskar Quezada NP PCP - General NURSE PRACTITIONER 02/17/13 documented as of this encounter
--- OUTSIDE RECORDS SUMMARY | 2025-04-15 21:07 | XMS_ITS | Encounter Summary ---
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
--- OUTSIDE RECORDS SUMMARY | 2025-04-15 21:07 | XMS_ITS | Encounter Summary ---
Author Organization [email or web address] [facility] Address [address] [place] [address] Care Team Providers Care Packing Clerk Name Role Phone Oskar Quezada NP Primary Care Provider Encounter Details Date Type Department Care Team (Latest Contact Info) Description 10/20/2001 Outpatient Historical HIS [facility] Sebastián Lynch MD [address] [place] [address] ACUTE PHARYNGITIS (Primary Dx); URIN TRACT INFECTION NOS; ACUTE TONSILLITIS Social History Tobacco Use Types Packs/Day Years Used Date Smoking Tobacco: Never Assessed Comments Unknown Sex and Gender Information Value Date Recorded Sex Assigned at Not on file 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
--- OUTSIDE RECORDS SUMMARY | 2025-04-15 21:07 | XMS_ITS | Encounter Summary ---
Author Organization [facility] Address [address] [facility] Attn: [place] [address] Care Team Providers Care Reproductive Healthcare Assistant Name Role Phone Oskar Quezada GLOBAL VP CREATIVE + CONTENT MARKETING Primary Care Provider Encounter Details Date Type Department Care Team (Late st Contact Info) Description 07/27/2001 Outpatient Historical Sebastián Lynch MD [address] [place] [address] Social History Tobacco Use Types Packs/Day Years Used Date Smoking Tobacco: Never Assessed Comments Unknown Sex and Gender Information Value Date Recorded Sex Assigned at Not on file 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
--- OUTSIDE RECORDS SUMMARY | 2025-04-15 21:07 | XMS_ITS | Encounter Summary ---
Author Organization [employer] [facility] Address [address] [place] [address] Care Team Providers Care Interventional Pain Physician Name Role Phone Oskar Quezada NP Primary Care Provider Encounter Details Date Type Department Care Team (Latest Contact Info) Description 09/22/2001 Outpatient Historical HIS [facility] Sebastián Lynch MD [address] [place] [address] URIN TRACT INFECTION NOS (Primary Dx) Social History Tobacco Use Types Packs/Day Years Used Date Smoking Tobacco: Never Assessed Comments Unknown Sex and Gender Information Value Date Recorded Sex Assigned at Not on file Legal Sex Female 5:49 AM RENTAL REPRESENTATIVE Gender Identity Not on file Sexual Orientation Not on file documented as of this encounter Plan of Treatment Not on file documented as of this encounter Visit Diagnoses Diagnosis Urinary tract infection, site not specified- Primary documented in this encounter Care Teams Interventional Pain Physician Relationship Specialty Start Date End Date Oskar Quezada NP PCP - General NURSE PRACTITIONER 02/17/13 documented as of this encounter
--- OUTSIDE RECORDS SUMMARY | 2025-04-15 21:07 | XMS_ITS | Continuity of Care Document ---
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 [phone] 03/01/2025 15:57:31 03/01/2025 16:35:53 85980117 Z34.90 Gestation period, 28 weeks 77294733 Z3A.28 [id number] Willian Mead MD [facility] ([facility]) [address] [place], [place] [address] 03/01/2025 15:51:38 03/02/2025 10:15:56 Gestation period, 28 weeks 63698936 Z3A.28 [id number] Willian Mead MD [facility]) [address] [place], [place] [address] 03/08/2025 11:52:33 03/08/2025 13:53:06 [id number] Willian Mead MD [facility] ([facility]) [address] [place] [phone] 03/15/2025 15:54:57 03/15/2025 16:29:59 [id number] Z34.90 Gestation period, 30 weeks 39575118 Z3A.30 [id number] Willian Mead MD [facility] ([facility]) [address] [place] [address] 03/29/2025 16:36:32 03/30/2025 14:46:35 Multigravida 567501711 Z34.83 [id number] Gestation period, 32 weeks 3314706 Z3A.32 [id number] Health Concerns Section Related Observation LastModified by Organization Detai ls LastModified Time None Recorded Concern Status LastModified by Organization Details LastModified Time None Recorded Payers Encounter Date Sequence Insurance Name Policy Number Policy Webster Covered Member ID Webster Member ID Guarantor Name 03/29/[address] [facility] (MEDICAID HMO) Chioma Kaycee Gilliam [id number] Chioma Gilliam Notes Date Note Type Note Provider Name and Address Organization Details Recorded Time 03/29/2025 text/html jr ob routineRep orted by PatientHPIFor associated symptoms, patient reportsabdominal pain,contractions [...] would prefer a . Willian Mead MD [address] [place] [address], [phone] 03/29/2025 18:43:59 OBGyn Episode Ob Episode Information Episode Created Date Number of Fetuses Patient Bloodtype Patient rh Status Prepregnancy Weight lbs Domestic Partner Domestic Partner Phone Father Name Accounting Recruiter Status 10/05/19 25 1 A Positive Danis Link OPEN Fetus Data First Name Last Name Admitted to NICU Weight (g) Sex Living Outcome Pediatric Complications Fetus ID Race Codes Race Delivery Type [id number] Problems Problem Notes Planning on .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 Problem Name Start Date End Date Resolution Snomed Code Not e Multigravida 02/01/2025 810748400 Normal in multigravida 11/04/2024 [id number] Jasvir Calculation Initial Jasvir Date Initial Exam [...] Weight in lbs Pre/Post Dialysis Refused Weight 193.100324884527 BP Diastolic BP Location Tested BP Systolic [...] Weight in lbs Pre/Post Dialysis Refused Weight 195.438375402622 BP Diastolic BP Location Tested BP Systolic [...] Weight in lbs Pre/Post Dialysis Refused Weight 193.145811986839 BP Diastolic BP Location Tested BP Systolic [...] Weight in lbs Pre/Post Dialysis Refused Weight 199.306629512647 BP Diastolic BP Location Tested BP Systolic [...] Weight in lbs Pre/Post Dialysis Refused Weight 202.292162544003 BP Diastolic BP Location Tested BP Systolic BP Type 78 118 sitting Fetus Heart Rate Present A 148 Present Fetus Movement A Yes Comments occ mild abdominal pain, traci ma-face/ankles,nausea, headache Flowsheet Date 02/15/2025 Lockwood Score Blood Edema Fundus Height Fundus Units Glucose Ketones Leukocytes Nitrite Labor Signs Protein Cervic Dilation Cervic Effacement Cervic Station Type Weight in lbs Pre/Post Dialysis Refused Weight 206.706106759401 BP Diastolic BP Location Tested BP Systolic [...] Weight in lbs Pre/Post Dialysis Refused Weight 213.037563851163 BP Diastolic BP Location Tested BP Systolic [...] Weight in lbs Pre/Post Dialysis Refused Weight 210.221107423502 BP Diastolic BP Location Tested BP Systolic [...] Cervic Station 32 cm none 1+ Negative Kent Jacob 1+ Type Weight in lbs Pre/Post Dialysis Refused Weight 213.387836647796 BP Diastolic BP Location Tested BP Systolic [...] Weight in lbs Pre/Post Dialysis Refused Weight 215.184711171970 BP Diastolic BP Location Tested BP Systolic [...] At Estimated Date of Delivery false Thalassemia (Telugu, Cay[place] Islander, Mediterranean, Or Background): MCV < 80 false Neural Tube Defect (Meningom yelocele, Spina Bifida, Or Anencephaly) false Congenital Heart Defect false Down Syndrome false Jacky-Sachs (eg, Alevism, Cajun , Belarusian-Gonvick) false Ronald Disease false Sickle Cell Disease Or Trait () false Hemophilia Or Other Blood Disorders false Muscular Dystrophy false Cystic Fibrosis false Pendleton's Chorea false Intellectual Disability/Autism false If Yes, [...]
--- OUTSIDE RECORDS SUMMARY | 2025-04-15 21:07 | XMS_ITS | Encounter Summary ---
Author Organization [employer] [facility] Address [address] [place] [address] Care Team Providers Care Dairy Supplies Sales Representative Name Role Phone Oskar Quezada NP Primary Care Provider Encounter Details Date Type Department Care Team (Latest Contact Info) Description 09/10/2001 Outpatient Historical [facility] Sebastián Lynch MD [address] [place] [address] INSECT BITE NEC (Primary Dx); Nonvenom arthropod bite Social History Tobacco Use Types Packs/Day Years Used Date Smoking Tobacco: Never Assessed Comments Unknown Sex and Gender Information Value Date Recorded Sex Assigned at Not on file Legal 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
--- OUTSIDE RECORDS SUMMARY | 2025-04-15 21:07 | XMS_ITS | Encounter Summary ---
Author Organization [employer] [facility] Address [address] [place] [address] Care Team Providers Care Ship Fitter Name Role Phone Oskar Quezada NP Primary Care Provider Encounter Details Date Type Department Care Team (Latest Contact Info) Description 08/17/2001 Outpatient Historical [facility] Sebastián Lynch MD [address] [place] [address] INSECT BITE NEC (Primary Dx); MED EXAM NEC-ADMIN PURP Social History Tobacco Use Types Packs/Day Years Used Date Smoking Tobacco: Never Assessed Comments Unknown Sex and Gender Information Value Date Recorded Sex Assigned at Not on file 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
--- OUTSIDE RECORDS SUMMARY | 2025-04-15 21:07 | XMS_ITS | Continuity of Care Document ---
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 in lbs Pre/Post Dialysis Refused Weight 213.905811286309 BP Diastolic BP Location Tested BP Systolic [...] Weight in lbs Pre/Post Dialysis Refused Weight 215.070730038267 BP Diastolic BP Location Tested BP Systolic [...] At Estimated Date of Delivery false Thalassemia (Nepali, Burundian, Mediterranean, Or Background): MCV < 80 false Neural Tube Defect (Meningom yelocele, Spina Bifida, Or Anencephaly) false Congenital Heart Defect false Down Syndrome false Jacky-Sachs (eg, Sabianism, Cajun , Danish-Seward) false Ronald Disease false Sickle Cell Disease [...]
--- OUTSIDE RECORDS SUMMARY | 2025-04-15 21:07 | XMS_ITS | Continuity of Care Document ---
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 weeks 35548737 Z3A.28 [id number] Willian Mead MD [facility] ([facility]) [address] [place] [address] 03/01/2025 15:51:38 03/02/2025 10:15:56 Gestation period, 28 weeks 00896994 Z3A.28 [id number] Health Concerns Section Related Observation LastModified by Organization Detai ls LastModified Time None Recorded Concern Status LastModified by Organization Details LastModified Time None Recorded Payers Encounter Date Sequence Insurance Name Policy Number Policy Webster Covered Member ID Webster Member ID Guarantor Name 03/01/2025 1 [facility] (MEDICAID HMO) Chioma Gilliam [id number] Chioma Gilliam Notes Date Note Type Note [...] would prefer a . Willian Mead MD [address] [place] [address], [id number], [facility], [place] 03/01/2025 16:33:58 OBGyn Episode Ob Episode Information Episode Created Date Number of Fetuses Patient Bloodtype Patient rh Status Prepregnancy Weight lbs Domestic Partner Domestic Partner Phone Father Name Web Development Director Status 10/05/19 1 A Positive Danis Link OPEN Fetus Data First Name Last Name Admitted to NICU Weight (g) Sex Living Outcome Pediatric Complications Fetus ID Race Codes Race Delivery Type [id number] Problems Problem Notes Planning on .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 Problem Name Start Date End Date Resolution Snomed Code Not e Multigravida 02/01/2025 [id number] Normal in multigravida 11/04/2024 [id number] Mayo Calculation Initial Mayo Date Initial Exam [...] Weight in lbs Pre/Post Dialysis Refused Weight 193.693362306396 BP Diastolic BP Location Tested BP Systolic [...] Weight in lbs Pre/Post Dialysis Refused Weight 195.247500737276 BP Diastolic BP Location Tested BP Systolic [...] Weight in lbs Pre/Post Dialysis Refused Weight 193.245363944608 BP Diastolic BP Location Tested BP Systolic [...] Weight in lbs Pre/Post Dialysis Refused Weight 199.142025922696 BP Diastolic BP Location Tested BP Systolic [...] Weight in lbs Pre/Post Dialysis Refused Weight 202.191476876257 BP Diastolic BP Location Tested BP Systolic BP Type 78 118 sitting Fetus Heart Rate Present A 148 Present Fetus Movement A Yes Comments occ mild abdominal pain, traci ma-face/ankles,nausea, headache Flowsheet Date 02/15/2025 Lockwood Score Blood Edema Fundus Height Fundus Units Glucose Ketones Leukocytes Nitrite Labor Signs Protein Cervic Dilation Cervic Effacement Cervic Station Type Weight in lbs Pre/Post Dialysis Refused Weight 206.199894910602 BP Diastolic BP Location Tested BP Systolic [...] Weight in lbs Pre/Post Dialysis Refused Weight 213.977211552613 BP Diastolic BP Location Tested BP Systolic [...] Weight in lbs Pre/Post Dialysis Refused Weight 210.558918147621 BP Diastolic BP Location Tested BP Systolic [...] Cervic Station 32 cm none 1+ Negative [place] Jacob 1+ Type Weight in lbs Pre/Post Dialysis Refused Weight 213.615285832955 BP Diastolic BP Location Tested BP Systolic [...] Weight in lbs Pre/Post Dialysis Refused Weight 215.211598102395 BP Diastolic BP Location Tested BP Systolic [...] At Estimated Date of Delivery false Thalassemia (Albanian, Belarusian, Mediterranean, Or Background): MCV < 80 false Neural Tube Defect (Meningom yelocele, Spina Bifida, Or Anencephaly) false Congenital Heart Defect false Down Syndrome false Jacky-Sachs (eg, Yazdanism, Cajun , South African-Prague) false Ronald Disease false Sickle Cell Disease Or Trait () false Hemophilia Or Other Blood Disorders false Muscular Dystrophy false Cystic Fibrosis false Chisago's Chorea false Intellectual Disability/Autism false If Yes, [...]
--- OUTSIDE RECORDS SUMMARY | 2025-04-15 21:07 | XMS_ITS | Encounter Summary ---
Author Organization [facility] Address [address] [place] [address] Care Team Providers Care Agricultural Research Engineer Name Role Phone Oskar Quezada NP Primary Care Provider Encounter Details Date Type Department Care Team (Latest Contact Info) Description 08/28/1998 Outpatient Historical [facility] Sebastián Lynch MD [address] [place] [address] Other and unspecified noninfectious gastroenteritis and colitis(558.9) (Primary Dx) Social History Tobacco Use Types Packs/Day Years Used Date Smoking Tobacco: Never Assessed Comments Unknown Sex and Gender Information Value Date Recorded Sex Assigned at Not on file Legal 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
--- OUTSIDE RECORDS SUMMARY | 2025-04-15 21:07 | XMS_ITS | Encounter Summary ---
Author Organization [facility] Address [address] [place] [address] Care Team Providers Care Flooring Helper Name Role Phone Oskar Quezada NP Primary Care Provider Encounter Details Date Type Department Care Team (Latest Contact Info) Description 1998 Outpatient Historical [facility] Sebastián Lynch MD [address] [place] [address] Acute upper respiratory infections of unspecified site (Primary Dx) Social History Tobacco Use Types Packs/Day Years Used Date Smoking Tobacco: Never Assessed Comments Unknown Sex and Gender Information Value Date Recorded Sex Assigned at Not on file 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
--- OUTSIDE RECORDS SUMMARY | 2025-04-15 21:07 | XMS_ITS | Encounter Summary ---
Author Organization [employer] [facility] Address [address] [place] [address] Care Team Providers Care Culinary Instructor Name Role Phone Oskar Quezada NP Primary Care Provider Encounter Details Date Type Department Care Team (Latest Contact Info) Description 10/23/1998 Outpatient Historical [facility] Sebastián Lynch MD [address] [place] [address] Acute upper respiratory infections of unspecified site (Primary Dx) Social History Tobacco Use Types Packs/Day Years Used Date Smoking Tobacco: Never Assessed Comments Unknown Sex and Gender Information Value Date Recorded Sex Assigned at Not on file 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
--- NOTE | 2025-04-15 21:23 | ED_ITS ---
HPI - Abdominal Pain 2 General: Chief Complaint: Abdominal Pain Stated Complaint: localized pain by johnson. OB sent Time Seen by Provider: 04/15/25 21:06 History of Present Illness: Patient is 34 weeks gestation that presented to the ED due to abdominal pain. She initially presented to triage, was sent to OB, and OB sent her back to the emergency room after discussing with her primary obstetrics. She complains of pain right at the top of her mid fundus and to the right. No urinary symptoms. No nausea, no vomiting. This has been going on for 2-3 weeks. Patient stated on her last OB visit, he had to go to an emergency , and patient did not have time to talk to him. She stated she was crying at that time, and her symptoms have improved somewhat; however ongoing. She has not had any discharge from her vagina. No cramping such as [place] Jacob or labor pains. Associated Symptoms: Reports GI cramping (In the upper right abdomen); Denies chills, diarrhea, dysuria, fever(s), nausea and vomiting Related Data Home Medications ?Medication ?Instructions ?Recorded ?Confirmed buspirone 10 mg tablet 10 mg PO TID 04/20/23 Previous Rx's ?Medication ?Instructions ?Recorded ibuprofen 600 mg tablet 600 mg PO Q8H PRN pain #60 t abs 04/20/23 aripiprazole 2 mg tablet (Abilify) 2 mg PO DAILY #30 t abs 05/03/24 bupropion HCl 300 mg 24 hr tablet, 300 mg PO QAM #30 t abs 05/03/24 extended release exenatide 5 mcg/dose (250 5 mcg (0.02 mL) SUBCUT BID # 1.2 mL 05/14/24 mcg/mL)1.2 mL subcutaneous pen injector (Byetta) Allergies Allergy/AdvReac Type Severity Reaction Status Date / Time No Known Allergies Allergy Verified 12/08/24 22:14 Review of Systems 2 General: Reports: 10 or more systems reviewed and unremarkable except in HPI and below Const: Denies: fever(s) or chills Eyes: Denies: eye discharge or eye redness ENMT: Denies: throat pain, enlarged tonsils or odynophagia Card: Denies: chest pain or palpitations Resp: Denies: dyspnea, productive cough, non-productive cough or wheezing GI: Reports: abdominal pain and GI cramping (In the upper right abdomen); Denies: nausea, vomiting or diarrhea : Denies: flank pain, difficulty voiding, dysuria or urinary frequency Musc: Denies: neck pain or back pain Skin/Breast: Denies: rash or erythema Neuro: Reports: headache(s) (Frontal) Psych: Denies: anxiety Endo: Denies: polyuria or polydipsia Moise/Lymph: Denies: easy bruising, easy bleeding or petechiae All/Imm: Denies: urticaria, throat swelling or tongue swelling PFSH ED 2 PFSH: Medical History (Updated 04/15/25 @ 22:12 by MORENITA Gandhi) Obesity (BMI 30.0-34.9) PTSD (post-traumatic stress disorder) Anxiety and depression Surgical History (Updated 12/08/24 @ 23:46 by MORENITA Fitzgerald) History of section Family History Mother Hypertension Thyroid disease Diabetes Father Diabetes Brother Diabetes Denies family history of Colon cancer Ovarian cancer Heart disease Hyperlipidemia Breast cancer Uterine cancer Stroke Social History Smoking and tobacco/nicotine status: never used tobacco/nicotine Substance/Drug Use: never Physical Exam 2 Const: COMMON NORMALS: no acute distress, patient oriented x3 and alert G ENERAL APPEARANCE: cooperative ORIENTATION/CONSCIOUSNESS: Yes awake HENMT: COMMON NORMALS: normocephalic, atraumatic, external ears normal, EAC's normal, TM's normal bilaterally and Normal external nose present HEAD & SCALP: normocephalic and atraumatic NOSE: Normal external nose present E XTERNAL EAR: Yes external ears normal EXTERNAL AUDITORY CANAL: EAC's normal TYMPANIC MEMBRANE: TM's normal bilaterally MOUTH: other (Mucous membranes are sticky); no drooling THROAT: posterior oropharynx normal and uvula midline Eye: COMMON NORMALS: Equal, round and reactive pupils present, EOMs intact bilaterally and conjunctivae normal CONJUNCTIVA: Yes conjunctivae normal P UPIL: Yes Equal, round and reactive pupils present Neck/C-Spine: COMMON NORMALS: full ROM and no meningeal signs; negative for no lymphadenopathy CERVICAL SPINE: Yes cervical ROM normal Resp: COMMON NORMALS: normal respiratory effort, No retractions and clear to auscultation bilaterally AUSCULTATION: clear to auscultation bilaterally, no crackles, no rales, no rhonchi and no wheezes Cardio: COMMON NORMALS: regular rhythm RATE: tachycardic RHYTHM: regular rhythm BRUITS: no abdominal aortic bruits GI: INSPECTION: Yes gravid abdomen AUSCULTATION: Yes normoactive bowel sounds PALPATION: Yes Tenderness to palpation present (GI) (Mild right lower quadrant left lower quadrant tenderness with no guarding) and No Guarding due to palpation present (GI) RECTAL EXAM: deferred : COMMON NORMALS: Yes no CVA tenderness BLADDER/KIDNEY EXAM: Yes no CVA tenderness Back/Pelvis: COMMON NORMALS: no CVA tenderness and thoraco-lumbar ROM normal Extremity: COMMON NORMALS: normal to inspection, full ROM, no calf tenderness and no pedal edema Neuro: COMMON NORMALS: patient oriented x3 and CN's II-XII intact bilaterally SENSORIUM/ORIENTATION: Yes alert MENINGEAL SIGNS: Yes no meningeal signs and No nuccal rigidity CRANIAL NERVES: Yes CN normal except as noted C OORDINATION/BALANCE: [id number] test normal SPEECH: speech normal S ENSORY EXAM: Yes extremities MOTOR EXAM: 5/5 motor strength present throughout, Pronator motor function not present, Motor abnormalities not present and Other motor observations present (Web Marketing Strategist strong and equal bilaterally.) C OORDINATION: [id number]-ck-[id number] test normal Psych: COMMON NORMALS: mental status grossly normal, Normal thought process present, cooperative and speech normal ATTITUDE: Yes calm SPEECH: Yes normal speech THOUGHT PROCESS: Normal thought process present Skin: COMMON NORMALS: no rashes or lesions noted GENERAL SKIN EXAM: no rashes or lesions noted Course 2 Vital Signs: Vital signs: Vital Signs Temperature 97.9 F 04/15/25 21:05 Pulse Rate 90 04/15/25 21:05 Respiratory Rate 16 04/15/25 21:05 Blood Pressure 123/76 04/15/25 21:05 Pulse Oximetry 97 04/15/25 21:05 Oxygen Delivery Me thod Room Air 04/15/25 21:05 MDM - Abdominal Pain Medical Decision Making Patient is a 30-year-old female with 34-week gestation, presented to the ED with right upper mid quadrant abdominal pain. This is at the top of her fundus on measurement. This has been going on 2-3 weeks and with waxing and waning symptoms, with worse symptoms on her follow-up with OB this past Friday, 04/12. Will obtain routine labs, and urine analysis, then sent for nonstress test, and heart tones. FHT 130. OB at bedside for toco x 2 hours per standard of care. Discussed with patient to drink 2 L prior to bed. Medical Records I reviewed the patient's medical records. Lab Data I reviewed the patient's lab results. 04/15/25 21:34 04/15/25 21:34 Labs/Radiology: Laboratory Results WBC 10.39 10^3/uL (3.29-11.43) 04/15/25 21: RBC 3.98 10^6/uL (3.85-5.65) 04/15/25 21: Hgb 9.80 g/dL (11.27-16.99) L 04/15/25: Hct 30.9 % (36-47) L 04/15/25 21: MCV 77.6 fl (85-98) L 04/15/25 21: MCH 24.6 pg (27-33) L 04/15/25: MCHC 31.7 g/dL (30-55) 04/15/25: RDW 14.6 % (12.1-15.1) 04/15/25 21: Plt Count 289 10^3/cmm (157-399) 04/15/25: MPV 10.2 fL (7.4-10.4) 04/15/25 21: Neut % (Auto) 72.5 % 04/15/25 21: Lymph % (Auto) 19.5 % 04/15/25 21: Baxter % (Auto) 5.6 % 04/15/25: Eos % (Auto) 1.2 % 04/15/25: Baso % (Auto) 0.3 % 04/15/25: Neut # (Auto) 7.54 10^3/uL (1.8-7.7) 04/15/25: Lymph # (Auto) 2.0 10^3/uL (0.8-4.8) 04/15/25 21:34 Baxter # (Auto) 0.6 10^3/uL (0.2-0.9) 04/15/25 21:34 Eos # (Auto) 0.1 10^3/uL (0.0-0.8) 04/15/25 21:34 Baso # (Auto) 0.0 10^3/uL (0.0-0.1) 04/15/25 21:34 Nucleated RBC % (auto) 0 % 04/15/25 21:34 Nucleated RBCs # 0.0 /100WBC 04/15/25 21:34 Sodium 132 mmol/L (136-145) L 04/15/25 21:34 Potassium 3.6 mmol/L (3.5-5.1) 04/15/25 21:34 Chloride 101 mmol/L (98-107) 04/15/25 21:34 Carbon Dioxide 18 mmol/L (22-29) L 04/15/25 21:34 Anion Gap 16.6 (5-19) 04/15/25 21:34 BUN 9 mg/dL (6-20) 04/15/25 21:34 Creatinine 0.3 mg/dL (0.5-0.9) L 04/15/25 21:34 GFR Calculation 264.9 mL/min (90-130) H 04/15/25 21:34 Glucose 89 mg/dL (65-115) 04/15/25 21:34 Calculated Osmolality 272 mOsm/kg (285-295) L 04/15/25 21:34 Calcium 8.9 mg/dL (8.5-10.5) 04/15/25 21:34 Total Bilirubin 0.2 mg/dL (0.15-1.2) 04/15/25 21:34 AST 9 U/L (0-32) 04/15/25 21:34 ALT 6 U/L (0-33) 04/15/25 21:34 Alkaline Phosphatase 105 U/L (35-105) 04/15/25 21:34 Total Protein 6.8 g/dL (6.6-8.7) 04/15/25 21:34 Albumin 3.4 g/dL (3.5-5.2) L 04/15/25 21:34 Globulin 3.4 g/dL (1.3-4.6) 04/15/25 21:34 Lipase 40 U/L (13-60) 04/15/25 21:34 Urine Color Yellow (Yellow) 04/15/25 21:34 Urine Appearance Clear (CLEAR) 04/15/25 21:34 Urine pH 6.5 (5-7) 04/15/25 21:34 Ur Specific Clio 1.026 (1.005-1.030) 04/15/25 21:34 Urine Protein Trace (Negative) A 04/15/25 21:34 Urine Glucose (UA) Negative (Normal) 04/15/25 21:34 Urine Ketones Negative (Negative) 04/15/25 21: Urine Blood Negative (Negative) 04/15/25 21: Urine Nitrate Negative (Negative) 04/15/25 21: Urine Bilirubin Negative (Negative) 04/15/25 21:34 Urine Urobilinogen 0.2 mg/dL (Negative) 04/15/25 21:34 Ur Leukocyte Esterase Negative (Negative) 04/15/25 21:34 Urine RBC 0-2 /hpf (0-2) 04/15/25 21:34 Urine WBC 0-5 /hpf (0-5) 04/15/25 21:34 Ur Squamous Epith Cells 0-5 /hpf (0-5) 04/15/25 21:34 Amorphous Sediment Not Reportable 04/15/25 21:34 Urine Bacteria None seen /hpf (NONE) 04/15/25 21:34 Hyaline Casts 1.21 /lpf 04/15/25 21:34 No radiology studies performed this visit Discharge Plan Discharge Patient Disposition: Home Clinical Impression: Abdominal pain Qualifiers: Abdominal location: right upper quadrant Qualified Code(s): R10.11 - Right upper quadrant pain Condition: Stable Prescriptions: No Action buspirone 10 mg tablet 10 mg PO TID ibuprofen 600 mg tablet 600 mg PO Q8H PRN (Reason: pain) Qty: 60 0RF aripiprazole [Abilify] 2 mg tablet 2 mg PO DAILY Qty: 30 0RF bupropion HCl 300 mg tablet extended release 24 hr 300 mg PO QAM Qty: 30 0RF exenatide [Byetta] 5 mcg/dose (250 mcg/mL) 1.2 mL pen injector 5 mcg SUBCUT BID Qty: 1.2 0RF Discharge Orders: Discharge ED (Routine); Ordered 04/15/25 Ordered By: Lyla Dc Referrals: Joseph Archuleta MD [Primary Care Provider, Family Practice] Discharge Diet: Usual diet Discharge Activity: Resume usual activity Patient Instructions: Abdominal Pain (ED), Patient Portal & [place] Instructions Activity Restrictions/Additional Instructions: - Increase your water intake/noncaffeinated beverage intake - Call your doctor on Friday for follow-up next week. - Return to OB ED if you have abdominal pain/cramping, or call your OB - Your initial workup today is without concern. Thank you for choosing [facility] for your healthcare needs today. You have been screened and evaluated and felt safe for discharge. Health conditions do change or evolve sometimes and as such it is important that you follow up with your Primary Doctor to be re checked, 3-5 days is a general good time frame for follow up. You are always welcome to return to the ED for re assessment if your symptoms are worsening or you have new concerns Print Language: Tongan Coding Level of Care Code ED Payable Representative for Doni Cazares
[2025-04-15 21:40] LABS: Hematocrit 30.9 % (36-47); Hemoglobin 9.80 g/dL (11.27-16.99); Mean Corpuscular HGB Conc 31.7 g/dL (30-55); Mean Corpuscular Hemoglobin 24.6 pg (27-33); Mean Corpuscular Volume 77.6 fl (85-98); Nucleated Red Blood Cells % 0 %; Platelet Count 289 10^3/cmm (157-399); Red Blood Count 3.98 10^6/uL (3.85-5.65); White Blood Count 10.39 10^3/uL (3.29-11.43)
[2025-04-15 21:56] LABS: Glucose Urine UA Negative (Normal); Nitrate Urine Negative (Negative); Specific Gravity, Urine 1.026 (1.005-1.030)
[2025-04-15 21:58] LABS: Add Urine Microscopic? YES
[2025-04-15 22:02] LABS: Alanine Aminotransferase 6 U/L (0-33); Albumin Level 3.4 g/dL (3.5-5.2); Alkaline Phosphatase 105 U/L (35-105); Anion Gap 16.6 (5-19); Aspartate Amino Transferase 9 U/L (0-32); Blood Urea Nitrogen 9 mg/dL (6-20); Calcium 8.9 mg/dL (8.5-10.5); Carbon Dioxide 18 mmol/L (22-29); Chloride 101 mmol/L (98-107); Globulin 3.4 g/dL (1.3-4.6); Glucose 89 mg/dL (65-115); Lipase 40 U/L (13-60); Osmolality Calculated 272 mOsm/kg (285-295); Potassium 3.6 mmol/L (3.5-5.1); Sodium 132 mmol/L (136-145); Total Protein 6.8 g/dL (6.6-8.7)
[2025-04-15 22:40] VITALS: BP 107/77; PULSE 99; O2SAT 95
--- NOTE | 2025-04-15 23:22 | PC.NURSE ---
This RN to ER room 12 for continuous monitoring per ER request. External monitor and toco applied @ 2148. 2200: heart baseline 130 with moderate variability, 15x15 accelerations, no decelerations; no contractions noted 2230: heart baseline 130 with moderate variability, 15x15 accelerations, no decelerations; no contractions noted 2300: heart baseline 120 with moderate variability, 15x15 accelerations, no decelerations; no contractions noted 2310: Dr. Mead at bedside, states that continuous monitoring may be discontinued. 2313: Monitors removed; ER nurse at bedside to discharge patient.
[2025-04-15 23:41] VITALS: BP 106/72; PULSE 89; O2SAT 97
== END 2025-04-15 23:42 | disposition home or self-care (01) ==
PROVIDERS: Emergency Provider Physician Assistant; PCP Family Medicine
DX: R10.11 Right upper quadrant pain (principal)
CPT/HCPCS: 36415; 80053; 81001; 83690; 85025; 99283

== ENCOUNTER 2025-05-03 16:01 | Outpatient (CLI) | payer MEDICAID, SELFPAY ==
[2025-05-03 16:00] VITALS: BMI 38.6
[2025-05-03 16:05] VITALS: BP 121/72; PULSE 110
[2025-05-03 16:26] VITALS: BP 120/80; PULSE 107
== END 2025-05-03 16:45 | disposition home or self-care (01) ==
LOC: OPOB 16:01 → OBGYN 16:02
PROVIDERS: PCP Family Medicine; Visit Provider Family Medicine
DX: O36.8390 Maternal care for abnormalities of the fetal heart rate or rhythm, unspecified trimester, not applicable or unspecified (principal); Z3A.00 Weeks of gestation of pregnancy not specified
CPT/HCPCS: 59025; 99211

== ENCOUNTER 2025-05-16 04:44 | Inpatient (IN) | payer MEDICAID, SELFPAY ==
--- NOTE | 2025-05-10 08:15 | ANES.PREANE2 ---
Pre-Anesthetic Assessment Height/Weight: Height 5 ft 3 in Preop Diagnosis: IUP with planned Operation Date: 05/16/25 07:20 Proposed Procedures p Section Repeat(Not Applicable) - Willian Mead MD Was Beta Eda taken within 24 hours: N/A Was Clonidine taken within 24 hours: N/A Social Tobacco and No alcohol Exam alert, oriented x 3, clear to auscultation bilaterally and regular rate & rhythm Airway Submandibular: within normal limits Cervical ROM: within normal limits Mallampati: Class II Comments: Comments: Upper and lower dentures Anesthetic Plan ASA status: 2 Anesthesia: Regional (specify below) Other: Patient here for preop examination for planned with 2 vaginal deliveries followed by emergent for breech presentation during active labor Patient states that she had an epidural with the last and did fine Current smoking Denies any cardiac issues Will obtain labs morning of procedure Plan for routine with spinal Medications/Allergies Home Medications ?Medication ?Instructions ?Recorded ?Confirmed ?Last Taken ?Type buspirone 10 mg tablet 10 mg PO TID 04/20/23 10/20/24 Unknown History ibuprofen 600 mg tablet 600 mg PO Q8H PRN pain #60 tabs 04/20/23 10/20/24 Unknown Rx aripiprazole 2 mg tablet (Abilify) 2 mg PO DAILY #30 tabs 05/03/24 10/20/24 Unknown Rx bupropion HCl 300 mg 24 hr tablet, 300 mg PO QAM #30 tabs 05/03/24 10/20/24 Unknown Rx extended release exenatide 5 mcg/dose (250 5 mcg (0.02 mL) SUBCUT BID #1.2 mL 05/14/24 10/20/24 Unknown Rx mcg/mL)1.2 mL subcutaneous pen injector (Byetta) Allergies Allergy/AdvReac Type Severity Reaction Status Date / Time No Known Allergies Allergy Verified 12/08/24 22:14 [facility] Anesthesia Medical History (Updated 04/23/25 @ 00:00 by MARYLOU Townsend) Obesity (BMI 30.0-34.9) PTSD (post-traumatic stress disorder) Anxiety and depression Surgical History (Updated 12/08/24 @ 23:46 by MORENITA Fitzgerald) History of section Family History Mother Hypertension Thyroid disease Diabetes Father Diabetes Brother Diabetes Denies family history of Colon cancer Ovarian cancer Heart disease Hyperlipidemia Breast cancer Uterine cancer Stroke Social History Smoking and tobacco/nicotine status: never used tobacco/nicotine Substance/Drug Use: never
[2025-05-16] VITALS (30 sets, daily range): BP systolic 101–143; BP diastolic 54–82; PULSE 72–112; RESP 16–18; TEMP 35.7–37.2; O2SAT 96–97; BMI 40.4
--- OUTSIDE RECORDS SUMMARY | 2025-05-16 04:54 | XMS_ITS | Encounter Summary ---
Author Organization [employer] [facility] Address [address] [place] [address] Care Team Providers Care Head Of Training And Development Name Role Phone Oskar Quezada NP Primary Care Provider Encounter Details Date Type Department Care Team (Latest Contact Info) Description 06/30/2001 Outpatient Historical [facility] Sebastián Lynch MD [address] [place] [address] URIN TRACT INFECTION NOS (Primary Dx) Social History Tobacco Use Types Packs/Day Years Used Date Smoking Tobacco: Never Assessed Comments Unknown Sex and Gender Information Value Date Recorded Sex Assigned at Not on file Legal 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
--- OUTSIDE RECORDS SUMMARY | 2025-05-16 04:55 | XMS_ITS | Encounter Summary ---
Author Organization [facility] [employer] [facility] Address [address] [place] [address] Care Team Providers Care Crossword Puzzle Maker Name Role Phone Oskar Quezada NP Primary Care Provider [phone] Encounter Details Date Type Department Care Team (Latest Contact Info) Description 06/08/2002 Outpatient Historical [facility] Sebastián Lynch MD [address] [place] [address] OTITIS MEDIA NOS (Primary Dx) Social History Tobacco Use Types Packs/Day Years Used Date Smoking Tobacco: Never Assessed Comments Unknown Sex and Gender Information Value Date Recorded Sex Assigned at Not on file Legal 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
--- OUTSIDE RECORDS SUMMARY | 2025-05-16 04:55 | XMS_ITS | Continuity of Care Document ---
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 16:46:49 varicella 1 completed Not Available [facility] 05/10/2025 16:46:49 DTaP 3 completed Not Available [facility] 05/10/2025 16:46:49 IPV 3 completed [facility] 05/10/2025 16:46:49 MMR 3 completed Not Available [facility] 05/10/2025 16:46:49 Tdap 1 completed Not Available [facility] 05/10/2025 16:46:49 COVID-19, mRNA, LNP-S, PF, 100 mcg/0.5mL dose or 50 mcg/0.25mL dose 1 completed Not Available [facility] 05/10/2025 16:46:49 COVID-19, mRNA, LNP-S, PF, 100 mcg/0.5mL dose or 50 mcg/0.25mL dose 1 completed Not Available [facility] 05/10/2025 16:46:49 COVID-19, mRNA, LNP-S, PF, 100 mcg/0.5mL dose or 50 mcg/0.25mL dose 2 completed Not Available [facility] 05/10/2025 16:46:49 Tdap 5 completed Not Available [facility] 05/10/2025 16:46:49 RSV, bivalent, protein subunit RSVpreF, diluent reconstituted, 0.5 mL, PF 5 completed Not Available [facility] 05/10/2025 16:46:49 Past Encounters Encounter ID Performer Location Encounter Start Date Encounter Closed Date Diagnosis/Indication Diagnosis SNOMED-CT Code Diagnosis ICD10 Code Diagnosis IMO Codes Diagnosis Note [id number] Willian Mead MD [facility] ([facility]) [address] [place] [phone] 02/01/2025 16:28:55 02/01/2025 17:58:35 Gestation period, 24 weeks 674068046 Z3A.24 5334515 Multigravida 066984121 Z 34.82 [id number] LEONARDO MOLINA APRN [facility] ([facility]) [address] [place] [phone] 02/15/2025 13:59:20 02/15/2025 17:06:28 Viral disease 04535665 B34.9 [id number] Willian Mead MD [facility] ([facility]) [address] [place] [address] [phone] 03/01/2025 15:57:31 03/01/2025 16:35:53 86012555 Z34.90 Gestation period, 28 weeks 81789129 Z3A.28 [id number] [id number] Willian Mead MD [facility] ([facility]) [address] [place] [phone] 03/01/2025 15:51:38 03/02/2025 10:15:56 Gestation period, 28 weeks 88967642 Z3A.28 [id number] Health Concerns Section Related Observation LastModified by Organization Detai ls LastModified Time None Recorded Concern Status LastModified by Organization Details LastModified Time None Recorded Payers Encounter Date Sequence Insurance Name Policy Number Policy Webster Covered Member ID Webster Member ID Guarantor Name 03/01/2025 1 [facility] (MEDICAID HMO) Chioma Gilliam [id number] Chioma Gilliam Notes Date Note Type Note [...] would prefer a . Willian Mead MD [address] [place] [address], [phone], [facility]/01/[facility]25 16:33:58 OBGyn Episode Ob Episode Information Episode Created Date Number of Fetuses Patient Bloodtype Patient rh Status Prepregnancy Weight lbs Domestic Partner Domestic Partner Phone Father Name System Controller Status 10/05/19 1 A Positive Danis Link OPEN Fetus Data First Name Last Name Admitted to NICU Weight (g) Sex Living Outcome Pediatric Complications Fetus ID Race Codes Race Delivery Type [id number] Problems Problem Notes Planning on .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 Problem Name Start Date End Date Resolution Snomed Code Not e Multigravida 02/01/2025 810938289 Normal in multigravida 11/04/2024 [id number] Jasvir Calculation Initial Jasvir Date Initial Exam [...] Weight in lbs Pre/Post Dialysis Refused Weight 193.188236255151 BP Diastolic BP Location Tested BP Systolic [...] Weight in lbs Pre/Post Dialysis Refused Weight 195.234542379639 BP Diastolic BP Location Tested BP Systolic [...] Weight in lbs Pre/Post Dialysis Refused Weight 193.680328136103 BP Diastolic BP Location Tested BP Systolic [...] for Home State completed Flowsheet Date 01/03/2025 [place] Score Blood Edema Fundus Height Fundus Units [...] Weight in lbs Pre/Post Dialysis Refused Weight 199.339032202278 BP Diastolic BP Location Tested BP Systolic [...] Weight in lbs Pre/Post Dialysis Refused Weight 202.597677947131 BP Diastolic BP Location Tested BP Systolic BP Type 78 118 sitting Fetus Heart Rate Present A 148 Present Fetus Movement A Yes Comments occ mild abdominal pain, traci ma-face/ankles,nausea, headache Flowsheet Date 02/15/2025 Lockwood Score Blood Edema Fundus Height Fundus Units Glucose Ketones Leukocytes Nitrite Labor Signs Protein Cervic Dilation Cervic Effacement Cervic Station Type Weight in lbs Pre/Post Dialysis Refused Weight 206.199131636872 BP Diastolic BP Location Tested BP Systolic [...] Weight in lbs Pre/Post Dialysis Refused Weight 213.206291299120 BP Diastolic BP Location Tested BP Systolic [...] Weight in lbs Pre/Post Dialysis Refused Weight 210.803879919676 BP Diastolic BP Location Tested BP Systolic [...] Cervic Station 32 cm none 1+ Negative Criders Jacob 1+ Type Weight in lbs Pre/Post Dialysis Refused Weight 213.240286239238 BP Diastolic BP Location Tested BP Systolic BP Type 74 118 sitting Fetus Heart Rate Present A 144 Present Fetus Movement A Decreased Comments abd pain/tightning when she walks, low back pain, pelvic pain, hip pain, heartburn, script sent for rsv and Tdap.Tubal consent signed Flowsheet Date 04/12/2025 Lockwood Score Blood Edema Fundus Height Fundus Units Glucose Ketones Leukocytes Nitrite Labor Signs Protein Cervic Dilation Cervic Effacement Cervic Station 34 cm none trace Negative Cramping neg Type Weight in lbs Pre/Post Dialysis Refused Weight 215.657217651022 BP Diastolic BP Location Tested BP Systolic BP Type 78 132 sitting Fetus Heart Rate Present A 156 Present Fetus Movement A Yes Comments increased vaginal pressure, pelvic pain, abdominal pain, back pain, cramping Flowsheet Date 04/26/2025 Lockwood Score Blood Edema Fundus Height Fundus Units Glucose Ketones Leukocytes Nitrite Labor Signs Protein Cervic Dilation Cervic Effacement Cervic Station none trace Negative Criders Jacob trace Type Weight in lbs Pre/Post Dialysis Refused Weight 215.967196540893 BP Diastolic BP Location Tested BP Systolic BP Type 76 122 sitting Fetus Heart Rate Present A 144 Present Fetus Movement A Yes Comments acid reflux, SOB, group B to day Flowsheet Date 05/02/2025 Lockwood Score Blood Edema Fundus Height Fundus Units Glucose Ketones Leukocytes Nitrite Labor Signs Protein Cervic Dilation Cervic Effacement Cervic Station Type Weight in lbs Pre/Post Dialysis Refused BP Diastolic BP Location Tested BP Systolic BP Type Fetus Heart Rate Present Fetus Movement Comments Group B strep NegativeOB rec ords sent Flowsheet Date 05/03/2025 Lockwood Score Blood Edema Fundus Height Fundus Units Glucose Ketones Leukocytes Nitrite Labor Signs Protein Cervic Dilation Cervic Effacement Cervic Station none trace Negative trace Type Weight in lbs Pre/Post Dialysis Refused Weight 218.866315785391 BP Diastolic BP Location Tested BP Systolic BP Type 80 132 sitting Fetus Heart Rate Present A 176 Present Fetus Movement A Increased Comments increased thrashy movement o f baby Flowsheet Date 05/03/2025 Lockwood Score Blood Edema Fundus Height Fundus Units Glucose Ketones Leukocytes Nitrite Labor Signs Protein Cervic Dilation Cervic Effacement Cervic Station Type Weight in lbs Pre/Post Dialysis Refused BP Diastolic BP Location Tested BP Systolic BP Type Fetus Heart Rate Present Fetus Movement Comments Anesthesia consult order sen t for 05/10Repeat with BTL on 05/16/25 Flowsheet Date 05/10/2025 Lockwood Score Blood Edema Fundus Height Fundus Units Glucose Ketones Leukocytes Nitrite Labor Signs Protein Cervic Dilation Cervic Effacement Cervic Station 38 cm none trace Negative Ashwin Jacob trace Type Weight in lbs Pre/Post Dialysis Refused Weight 223.772154708449 BP Diastolic BP Location Tested BP Systolic BP Type 86 128 sitting Fetus Heart Rate Present A 148 Present Fetus Movement A Yes Comments swelling in nose, vaginal di [place]om[place], heartburn, headache Menstrual History Last Menstrual Date Menses Monthly On Bcp Conception Prior Menses Frequency Hcg Plus Date Menarche Onset Age 0308/16/2024 Genetic Screening And Infection History Question Response Note Patient's Age Will Be 35 Yea rs Or Older At Estimated Date of Delivery false Thalassemia (Guyanese, Irish, Mediterranean, Or Background): MCV < 80 false Neural Tube Defect (Meningom yelocele, Spina Bifida, Or Anencephaly) false Congenital Heart Defect false Down Syndrome false Jacky-Sachs (eg, Yazidism, Cajun , Bengali-Malaysian) false Ronald Disease false Sickle Cell Disease Or Trait () false Hemophilia Or Other Blood Disorders false Muscular Dystrophy false Cystic Fibrosis false Edinburgh's Chorea false Intellectual Disability/Autism false If Yes, [...]
--- OUTSIDE RECORDS SUMMARY | 2025-05-16 04:55 | XMS_ITS | Encounter Summary ---
Author Organization [employer] Address [address] [place] [address] Care Team Providers Care African History Professor Name Role Phone Oskar Quezada PUNCH BOX TENDER Primary Care Provider Encounter Details Date Type Department Care Team (Latest Contact Info) Description 02/12/2000 Outpatient Historical [facility] Sebastián Lynch MD [address] [place] [phone] Acute pharyngitis (Primary Dx); Acute sinusitis, unspecified Social History Tobacco Use Types Packs/Day Years Used Date Smoking Tobacco: Never Assessed Comments Unknown Sex and Gender Information Value Date Recorded Sex Assigned at Not on file 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
--- OUTSIDE RECORDS SUMMARY | 2025-05-16 04:55 | XMS_ITS | Encounter Summary ---
Author Organization [facility] Address [address] [place] [address] Care Team Providers Care Showplace Manager Name Role Phone Oskar Quezada NP Primary Care Provider [phone] Encounter Details Date Type Department Care Team (Latest Contact Info) Description 04/18/1999 Outpatient Historical [facility] Gautam Sawyer NO ADDRESS ON FILE Acute upper respiratory infections of unspecified site (Primary Dx) Social History Tobacco Use Types Packs/Day Years Used Date Smoking Tobacco: Never Assessed Comments Unknown Sex and Gender Information Value Date Recorded Sex Assigned at Not on file 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
--- OUTSIDE RECORDS SUMMARY | 2025-05-16 04:55 | XMS_ITS | Data Portability ---
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 vaginal/vulvar itching or irritation,no dysuria,no frequency,no urgency,no hematuria,no fever,no nausea,no emesis,no constipation,no diarrhea/loose stool,no visual changes,no dizziness,no decrease in urine volume, andno breathlessness.heartburn, back pain, vaginal discomfort with standingdenies tobacco, alcohol, or drug use. Daily nicotineROS as noted in the HPI History-Pts last delivery was an emergency c/s d/t breech. Not Available Not Available Not Available OBGyn Episode Ob Episode Information Episode Created Date Number of Fetuses Patient Bloodtype Patient rh Status Prepregnancy Weight lbs Domestic Partner Domestic Partner Phone Father Name Bridge Operator Status 10/05/19 25 1 CLOSED Fetus Data First Name Last Name Admitted to NICU Weight (g) Sex Living Outcome Pediatric Complications Fetus ID Race Codes Race Delivery Type 3430.06 2704 M Full Term 8273 Myao Calculation Initial Mayo Date Initial Exam Date [...] Domestic Partner Domestic Partner Phone Father Name Bridge Operator Status 10/05/19 1 CLOSED Fetus Data First [...] Domestic Partner Domestic Partner Phone Father Name Bridge Operator Status 10/05/19 1 CLOSED Fetus Data First [...] Domestic Partner Domestic Partner Phone Father Name Bridge Operator Status 10/05/19 25 1 A Positive Danis Link OPEN Fetus Data First Name Last Name Admitted to NICU Weight (g) Sex Living Outcome Pediatric Complications Fetus ID Race Codes Race Delivery Type [id number] Problems Problem Notes Planning on .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 Problem Name Start Date End Date Resolution Snomed Code Not e Multigravida 02/01/2025 [id number] Normal in multigravida 11/04/2024 [id number] Mayo Calculation Initial Mayo Date Initial Exam [...] Weight in lbs Pre/Post Dialysis Refused Weight 193.931696504727 BP Diastolic BP Location Tested BP Systolic [...] Weight in lbs Pre/Post Dialysis Refused Weight 195.150981912631 BP Diastolic BP Location Tested BP Systolic [...] Weight in lbs Pre/Post Dialysis Refused Weight 193.983376601239 BP Diastolic BP Location Tested BP Systolic [...] Weight in lbs Pre/Post Dialysis Refused Weight 199.628313921170 BP Diastolic BP Location Tested BP Systolic [...] Weight in lbs Pre/Post Dialysis Refused Weight 202.922051593841 BP Diastolic BP Location Tested BP Systolic BP Type 78 118 sitting Fetus Heart Rate Present A 148 Present Fetus Movement A Yes Comments occ mild abdominal pain, traci ma-face/ankles,nausea, headache Flowsheet Date 02/15/2025 Lockwood Score Blood Edema Fundus Height Fundus Units Glucose Ketones Leukocytes Nitrite Labor Signs Protein Cervic Dilation Cervic Effacement Cervic Station Type Weight in lbs Pre/Post Dialysis Refused Weight 206.758994861881 BP Diastolic BP Location Tested BP Systolic [...] Weight in lbs Pre/Post Dialysis Refused Weight 213.223193605184 BP Diastolic BP Location Tested BP Systolic [...] Weight in lbs Pre/Post Dialysis Refused Weight 210.259286550714 BP Diastolic BP Location Tested BP Systolic [...] Cervic Station 32 cm none 1+ Negative [place] 1+ Type Weight in lbs Pre/Post Dialysis Refused Weight 213.272314309269 BP Diastolic BP Location Tested BP Systolic [...] Weight in lbs Pre/Post Dialysis Refused Weight 215.991371835887 BP Diastolic BP Location Tested BP Systolic BP Type 78 132 sitting Fetus Heart Rate Present A 156 Present Fetus Movement A Yes Comments increased vaginal pressure, pelvic pain, abdominal pain, back pain, cramping Flowsheet Date 04/26/2025 Lockwood Score Blood Edema Fundus Height Fundus Units Glucose Ketones Leukocytes Nitrite Labor Signs Protein Cervic Dilation Cervic Effacement Cervic Station none trace Negative [place] trace Type Weight in lbs Pre/Post Dialysis Refused Weight 215.708785800408 BP Diastolic BP Location Tested BP Systolic [...] Weight in lbs Pre/Post Dialysis Refused Weight 218.092395010288 BP Diastolic BP Location Tested BP Systolic [...] Cervic Station 38 cm none trace Negative [place] trace Type Weight in lbs Pre/Post Dialysis Refused Weight 223.741292995846 BP Diastolic BP Location Tested BP Systolic [...] At Estimated Date of Delivery false Thalassemia (Chinese, Cameroonian, Mediterranean, Or Background): MCV < 80 false Neural Tube Defect (Meningom yelocele, Spina Bifida, Or Anencephaly) false Congenital Heart Defect false Down Syndrome false Jacky-Sachs (eg, Catholic, Cajun , Frisian-[place]) false Ronald Disease false Sickle Cell Disease [...]
--- OUTSIDE RECORDS SUMMARY | 2025-05-16 04:55 | XMS_ITS | Encounter Summary ---
Author Organization [email or web address] [facility] Address [address] [place] [address] Care Team Providers Care Package Worker Name Role Phone Oskar Quezada NP Primary Care Provider Encounter Details Date Type Department Care Team (Latest Contact Info) Description 10/23/1999 Outpatient Historical [facility] Sebastián Lynch MD [address] [place] [address] Acute tonsillitis (Primary Dx) Social History Tobacco Use Types Packs/Day Years Used Date Smoking Tobacco: Never Assessed Comments Unknown Sex and Gender Information Value Date Recorded Sex Assigned at Not on file Legal 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
--- OUTSIDE RECORDS SUMMARY | 2025-05-16 04:55 | XMS_ITS | Encounter Summary ---
Author Organization [employer] [facility] Address [address] [place] [address] Care Team Providers Care Adolescent Medicine Specialist Name Role Phone Oskar Quezada NP Primary Care Provider Encounter Details Date Type Department Care Team (Latest Contact Info) Description 02/26/1999 Outpatient Historical HIS [facility] Sebastián Lynch MD [address] [place] [id number] Unspecified otitis media (Primary Dx) Social History Tobacco Use Types Packs/Day Years Used Date Smoking Tobacco: Never Assessed Comments Unknown Sex and Gender Information Value Date Recorded Sex Assigned at Not on file 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
--- OUTSIDE RECORDS SUMMARY | 2025-05-16 04:55 | XMS_ITS | Continuity of Care Document ---
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 completed Not Available [facility] 05/10/2025 16:46:49 IPV 3 completed Not Available [facility] 05/10/2025 16:46:49 MMR 3 completed Not Available [facility] 05/10/2025 16:46:49 Tdap 1 completed Not Available [facility] 05/10/2025 16:46:49 COVID-19, mRNA, LNP-S, PF, 100 mcg/0.5mL dose or 50 mcg/0.25mL dose 1 completed Not Available [facility] 05/10/2025 16:46:49 COVID-19, mRNA, LNP-S, PF, 100 mcg/0.5mL dose or 50 mcg/0.25mL dose 1 completed Not Available [facility] 05/10/2025 16:46:49 COVID-19, mRNA, LNP-S, PF, 100 mcg/0.5mL dose or 50 mcg/0.25mL dose 2 completed Not Available [facility] 05/10/2025 16:46:49 Tdap 5 completed Not Available [facility] 05/10/2025 16:46:49 RSV, bivalent, protein subunit RSVpreF, diluent reconstituted, 0.5 mL, PF 5 completed Not Available [facility] 05/10/2025 16:46:49 Past Encounters Encounter ID Performer Location Encounter Start Date Encounter Closed Date Diagnosis/Indication Diagnosis SNOMED-CT Code Diagnosis ICD10 Code Diagnosis IMO Codes Diagnosis Note [id number] Willian Mead MD [facility] ([facility]) [address] [place] [phone] 03/29/2025 16:36:32 03/30/2025 14:46:35 Multigravida 041589110 Z34.83 28094142 Gestation period, 32 weeks 6058325 Z3A.32 1842577 [id number] Willian Mead MD [facility] ([facility]) [address] [place] [address] 04/12/2025 16:22:08 04/23/2025 17:35:49 38563185 Z34.90 Multigravida 744129148 Z 34.83 40591428 Gestation period, 34 weeks 03315585 Z3A.34 5111061 [id number] Willian Mead MD [facility] ([facility]) [address] [place] [address] 04/26/2025 16:35:46 04/26/2025 17:45:50 Multigravida 796244457 Z34.83 06988470 Gestation period, 36 weeks 82265357 Z3A.36 5152669 Gastroesop hageal reflux disease in 8747051211 9882863 O99.619 K21.9 30163734 Health Concerns Section Related Observation LastModified by Organization Detai ls LastModified Time None Recorded Concern Status LastModified by Organization Details LastModified Time None Recorded Payers Encounter Date Sequence Insurance Name Policy Number Policy Webster Covered Member ID Webster Member ID Guarantor Name 04/26/2025 1 [facility] (MEDICAID HMO) Chioma Gilliam [id number] Chioma Gilliam Notes Date Note Type Note Provider Name and Address Organization Details Recorded Time 5 text/html jr ob routineReported by PatientHPIFor associated symptoms, patient reportscontractions (irreg)andbreathlessness but reportsno abdominal pain,no cramping,normal movement,no bleeding,no vaginal [...] baby is head down. Willian Mead MD [address] [place] [address], [phone], [facility] 04/26/2025 17:44:59 OBGyn Episode Ob Episode Information Episode Created Date Number of Fetuses Patient Bloodtype Patient rh Status Prepregnancy Weight lbs Domestic Partner Domestic Partner Phone Father Name Telecommunications Project Manager Status 10/05/19 1 A Positive Danis Link OPEN Fetus Data First Name Last Name Admitted to NICU Weight (g) Sex Living Outcome Pediatric Complications Fetus ID Race Codes Race Delivery Type [id number] Problems Problem Notes Planning on .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 Problem Name Start Date End Date Resolution Snomed Code Not e Multigravida 02/01/2025 317664568 Normal in multigravida 11/04/2024 [id number] Jasvir Calculation Initial Jasvir Date Initial Exam [...] Weight in lbs Pre/Post Dialysis Refused Weight 193.006991414493 BP Diastolic BP Location Tested BP Systolic [...] Weight in lbs Pre/Post Dialysis Refused Weight 195.715130058990 BP Diastolic BP Location Tested BP Systolic [...] Weight in lbs Pre/Post Dialysis Refused Weight 193.503737998091 BP Diastolic BP Location Tested BP Systolic [...] Weight in lbs Pre/Post Dialysis Refused Weight 199.168016818379 BP Diastolic BP Location Tested BP Systolic [...] Weight in lbs Pre/Post Dialysis Refused Weight 202.328451631387 BP Diastolic BP Location Tested BP Systolic BP Type 78 118 sitting Fetus Heart Rate Present A 148 Present Fetus Movement A Yes Comments occ mild abdominal pain, traci ma-face/ankles,nausea, headache Flowsheet Date 02/15/2025 Lockwood Score Blood Edema Fundus Height Fundus Units Glucose Ketones Leukocytes Nitrite Labor Signs Protein Cervic Dilation Cervic Effacement Cervic Station Type Weight in lbs Pre/Post Dialysis Refused Weight 206.108953413164 BP Diastolic BP Location Tested BP Systolic [...] Weight in lbs Pre/Post Dialysis Refused Weight 213.848755258238 BP Diastolic BP Location Tested BP Systolic [...] Weight in lbs Pre/Post Dialysis Refused Weight 210.810594118780 BP Diastolic BP Location Tested BP Systolic [...] Weight in lbs Pre/Post Dialysis Refused Weight 213.199093846655 BP Diastolic BP Location Tested BP Systolic [...] Weight in lbs Pre/Post Dialysis Refused Weight 215.058528655583 BP Diastolic BP Location Tested BP Systolic BP Type 78 132 sitting Fetus Heart Rate Present A 156 Present Fetus Movement A Yes Comments increased vaginal pressure, pelvic pain, abdominal pain, back pain, cramping Flowsheet Date 04/26/2025 Lockwood Score Blood Edema Fundus Height Fundus Units Glucose Ketones Leukocytes Nitrite Labor Signs Protein Cervic Dilation Cervic Effacement Cervic Station none trace Negative Ashwin Jacob trace Type Weight in lbs Pre/Post Dialysis Refused Weight 215.402102866046 BP Diastolic BP Location Tested BP Systolic [...] Weight in lbs Pre/Post Dialysis Refused Weight 218.860858590898 BP Diastolic BP Location Tested BP Systolic [...] Cervic Station 38 cm none trace Negative White Jacob trace Type Weight in lbs Pre/Post Dialysis Refused Weight 223.684543584579 BP Diastolic BP Location Tested BP Systolic [...] At Estimated Date of Delivery false Thalassemia (Hungarian, Irish, Mediterranean, Or Background): MCV < 80 false Neural Tube Defect (Meningom yelocele, Spina Bifida, Or Anencephaly) false Congenital Heart Defect false Down Syndrome false Jacky-Sachs (eg, Alevism, Cajun , Salvadorean-[place]) false Ronald Disease false Sickle Cell Disease Or Trait () false Hemophilia Or Other Blood Disorders false Muscular Dystrophy false Cystic Fibrosis false Sanborn's Chorea false Intellectual Disability/Autism false If Yes, [...]
--- OUTSIDE RECORDS SUMMARY | 2025-05-16 04:55 | XMS_ITS | Encounter Summary ---
Author Organization [employer] [facility] Address [address] [place] [address] Care Team Providers Care Peanut Separator Name Role Phone Oskar Quezada NP Primary Care Provider Encounter Details Date Type Department Care Team (Latest Contact Info) Description 07/23/1999 Outpatient Historical [facility] Sebastián Lynch MD [address] [place] [phone] Bronchitis, not specified as acute or chronic (Primary Dx) Social History Tobacco Use Types Packs/Day Years Used Date Smoking Tobacco: Never Assessed Comments Unknown Sex and Gender Information Value Date Recorded Sex Assigned at Not on file 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
--- OUTSIDE RECORDS SUMMARY | 2025-05-16 04:55 | XMS_ITS | Encounter Summary ---
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
--- OUTSIDE RECORDS SUMMARY | 2025-05-16 04:55 | XMS_ITS | Encounter Summary ---
Author Organization [employer] [facility] Address [address] [place] [address] Care Team Providers Care Stripper Preliminary Name Role Phone Oskar Quezada NP Primary Care Provider [phone] Encounter Details Date Type Department Care Team (Latest Contact Info) Description 02/03/2001 Outpatient Historical [facility] Sebastián Lynch MD [address] [place] [address] Dental caries (Primary Dx); Preoperative examination, unspecified Social History Tobacco Use Types Packs/Day Years Used Date Smoking Tobacco: Never Assessed Comments Unknown Sex and Gender Information Value Date Recorded Sex Assigned at Not on file 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
--- OUTSIDE RECORDS SUMMARY | 2025-05-16 04:55 | XMS_ITS | Clinical Summary ---
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
--- OUTSIDE RECORDS SUMMARY | 2025-05-16 04:55 | XMS_ITS | Continuity of Care Document ---
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 completed Not Available [facility] 05/10/2025 16:46:49 MMR 3 completed Not Available [facility] 05/10/2025 16:46:49 Tdap 1 completed Not Available [facility] 05/10/2025 16:46:49 COVID-19, mRNA, LNP-S, PF, 100 mcg/0.5mL dose or 50 mcg/0.25mL dose 1 completed Not Available [facility] 05/10/2025 16:46:49 COVID-19, mRNA, LNP-S, PF, 100 mcg/0.5mL dose or 50 mcg/0.25mL dose 1 completed Not Available [facility] 05/10/2025 16:46:49 COVID-19, mRNA, LNP-S, PF, 100 mcg/0.5mL dose or 50 mcg/0.25mL dose 2 completed Not Available [facility] 05/10/2025 16:46:49 Tdap 5 completed Not Available [facility] 05/10/2025 16:46:49 RSV, bivalent, protein subunit RSVpreF, diluent reconstituted, 0.5 mL, PF 5 completed Not Available [facility] 05/10/2025 16:46:49 Past Encounters Encounter ID Performer Location Encounter Start Date Encounter Closed Date Diagnosis/Indication Diagnosis SNOMED-CT Code Diagnosis ICD10 Code Diagnosis IMO Codes Diagnosis Note [id number] Willian Mead MD [facility] ([facility]) [address] [place] [address] 5 03/01/2025 15:57:31 03/01/2025 16:35:53 42526428 Z34.90 Gestation period, 28 weeks 41613176 Z3A.28 3195467 [id number] Willian Mead MD [facility] ([facility]) [address] [place] [address] 5 03/01/2025 15:51:38 03/02/2025 10:15:56 Gestation period, 28 weeks 93291489 Z3A.28 9118363 [id number] Willian Mead MD [facility] ([facility]) [address] [place] [address] 5 03/08/2025 11:52:33 03/08/2025 13:53:06 [id number] Willian Mead MD [facility] ([facility]) [address] [place] [address] 5 03/15/2025 15:54:57 03/15/2025 16:29:59 [id number] Z34.90 Gestation period, 30 weeks 86409251 Z3A.30 5780903 [id number] Willian Mead MD [facility] ([facility]) [address] [place] [address] 5 03/29/2025 16:36:32 03/30/2025 14:46:35 Multigravida 764489774 Z34.83 64166311 Gestation period, 32 weeks 7823417 Z3A.32 7934254 Health Concerns Section Related Observation LastModified by Organization Detai ls LastModified Time None Recorded Concern Status LastModified by Organization Details LastModified Time None Recorded Payers Encounter Date Sequence Insurance Name Policy Number Policy Webster Covered Member ID Webster Member ID Guarantor Name 03/29/2025 1 [facility] (MEDICAID HMO) Chioma Gilliam [id number] Chioma Gilliam Notes Date Note Type Note [...] would prefer a . Willian Mead MD [address] [place] [address], [phone] 03/29/2025 18:43:59 OBGyn Episode Ob Episode Information Episode Created Date Number of Fetuses Patient Bloodtype Patient rh Status Prepregnancy Weight lbs Domestic Partner Domestic Partner Phone Father Name Arts Administrator Status 10/05/19 25 1 A Positive Danis Walker OPEN Fetus Data First Name Last Name Admitted to NICU Weight (g) Sex Living Outcome Pediatric Complications Fetus ID Race Codes Race Delivery Type [id number] Problems Problem Notes Planning on .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 Problem Name Start Date End Date Resolution Snomed Code Not e Multigravida 02/01/2025 625534904 Normal in multigravida 11/04/2024 [id number] Jasvir Calculation Initial Jasvir Date Initial Exam [...] Weight in lbs Pre/Post Dialysis Refused Weight 193.443202495031 BP Diastolic BP Location Tested BP Systolic [...] Weight in lbs Pre/Post Dialysis Refused Weight 195.074349281514 BP Diastolic BP Location Tested BP Systolic [...] Weight in lbs Pre/Post Dialysis Refused Weight 193.543420147656 BP Diastolic BP Location Tested BP Systolic [...] Weight in lbs Pre/Post Dialysis Refused Weight 199.609523939350 BP Diastolic BP Location Tested BP Systolic [...] Weight in lbs Pre/Post Dialysis Refused Weight 202.975955583208 BP Diastolic BP Location Tested BP Systolic BP Type 78 118 sitting Fetus Heart Rate Present A 148 Present Fetus Movement A Yes Comments occ mild abdominal pain, traci ma-face/ankles,nausea, headache Flowsheet Date 02/15/2025 Lockwood Score Blood Edema Fundus Height Fundus Units Glucose Ketones Leukocytes Nitrite Labor Signs Protein Cervic Dilation Cervic Effacement Cervic Station Type Weight in lbs Pre/Post Dialysis Refused Weight 206.428363252059 BP Diastolic BP Location Tested BP Systolic [...] Weight in lbs Pre/Post Dialysis Refused Weight 213.084186269836 BP Diastolic BP Location Tested BP Systolic [...] Weight in lbs Pre/Post Dialysis Refused Weight 210.173579006147 BP Diastolic BP Location Tested BP Systolic [...] Cervic Station 32 cm none 1+ Negative Bradford Jacob 1+ Type Weight in lbs Pre/Post Dialysis Refused Weight 213.495250910033 BP Diastolic BP Location Tested BP Systolic [...] Weight in lbs Pre/Post Dialysis Refused Weight 215.931645123368 BP Diastolic BP Location Tested BP Systolic [...] Weight in lbs Pre/Post Dialysis Refused Weight 215.682456587395 BP Diastolic BP Location Tested BP Systolic [...] Weight in lbs Pre/Post Dialysis Refused Weight 218.412814227590 BP Diastolic BP Location Tested BP Systolic [...] Weight in lbs Pre/Post Dialysis Refused Weight 223.697431002924 BP Diastolic BP Location Tested BP Systolic [...] At Estimated Date of Delivery false Thalassemia (Turkmen, Slovak, Mediterranean, Or Background): MCV < 80 false Neural Tube Defect (Meningom yelocele, Spina Bifida, Or Anencephaly) false Congenital Heart Defect false Down Syndrome false Jacky-Sachs (eg, Yazidi, Cajun , Maldivian-Mifflin) false Ronald Disease false Sickle Cell Disease Or Trait () false Hemophilia Or Other Blood Disorders false Muscular Dystrophy false Cystic Fibrosis false [place]'s Chorea false Intellectual Disability/Autism false If Yes, [...]
--- OUTSIDE RECORDS SUMMARY | 2025-05-16 04:55 | XMS_ITS | Continuity of Care Document ---
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 mRNA, LNP-S, PF, 100 mcg/0.5mL dose or 50 mcg/0.25mL dose 2 completed Not Available [facility] 05/10/2025 16:46:49 Tdap 5 completed Not Available [facility] 05/10/2025 16:46:49 RSV, bivalent, protein subunit RSVpreF, diluent reconstituted, 0.5 mL, PF 5 completed Not Available [facility] 05/10/2025 16:46:49 Past Encounters Encounter ID Performer Location Encounter Start Date Encounter Closed Date Diagnosis/Indication Diagnosis SNOMED-CT Code Diagnosis ICD10 Code Diagnosis IMO Codes Diagnosis Note [id number] Willian Mead MD [facility] ([facility]) [address] [place] [address] 5 02/01/2025 16:28:55 02/01/2025 17:58:35 Gestation period, 24 weeks 269694628 Z3A.24 0512106 Multigravida 862660272 Z 34.82 [id number] LEONARDO MOLINA APRN [facility] ([facility]) [address] [place] [address] 5 02/15/2025 13:59:20 02/15/2025 17:06:28 Viral disease 57681579 B34.9 04417 [id number] Willian Mead MD [facility] ([facility]) [address] [place] [address] 03/01/2025 15:57:31 03/01/2025 16:35:53 35791820 Z34.90 Gestation period, 28 weeks 37416904 Z3A.28 4201680 [id number] Willian Mead MD [facility] ([facility]) [address] [place] [address] 03/01/2025 15:51:38 03/02/2025 10:15:56 Gestation period, 28 weeks 78499909 Z3A.28 [id number] Health Concerns Section Related Observation LastModified by Organization Detai ls LastModified Time None Recorded Concern Status LastModified by Organization Details LastModified Time None Recorded Payers Encounter Date Sequence Insurance Name Policy Number Policy Webster Covered Member ID Webster Member ID Guarantor Name 03/01/2025 1 [facility] (MEDICAID HMO) Chioma Gilliam [id number] Chioma Gilliam Notes Date Note Type Note [...] would prefer a . Willian Mead MD [address] [place] [address], [phone], [facility], LKristen 03/01/2025 16:33:58 OBGyn Episode Ob Episode Information Episode Created Date Number of Fetuses Patient Bloodtype Patient rh Status Prepregnancy Weight lbs Domestic Partner Domestic Partner Phone Father Name Ammonium Sulfate Operator Status 10/05/19 1 A Positive Danis Link OPEN Fetus Data First Name Last Name Admitted to NICU Weight (g) Sex Living Outcome Pediatric Complications Fetus ID Race Codes Race Delivery Type [id number] Problems Problem Notes Planning on .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 Problem Name Start Date End Date Resolution Snomed Code Not e Multigravida 02/01/2025 [id number] Normal in multigravida 11/04/2024 [id number] Jasvir Calculation Initial Jasvir Date Initial Exam [...] Weight in lbs Pre/Post Dialysis Refused Weight 193.461102798748 BP Diastolic BP Location Tested BP Systolic [...] Weight in lbs Pre/Post Dialysis Refused Weight 195.814834069255 BP Diastolic BP Location Tested BP Systolic [...] Weight in lbs Pre/Post Dialysis Refused Weight 193.560692723213 BP Diastolic BP Location Tested BP Systolic [...] Weight in lbs Pre/Post Dialysis Refused Weight 199.493255616763 BP Diastolic BP Location Tested BP Systolic [...] Weight in lbs Pre/Post Dialysis Refused Weight 202.430083695534 BP Diastolic BP Location Tested BP Systolic BP Type 78 118 sitting Fetus Heart Rate Present A 148 Present Fetus Movement A Yes Comments occ mild abdominal pain, traci ma-face/ankles,nausea, headache Flowsheet Date 02/15/2025 [place]wood Score Blood Edema Fundus Height Fundus Units Glucose Ketones Leukocytes Nitrite Labor Signs Protein Cervic Dilation Cervic Effacement Cervic Station Type Weight in lbs Pre/Post Dialysis Refused Weight 206.865361201123 BP Diastolic BP Location Tested BP Systolic [...] Weight in lbs Pre/Post Dialysis Refused Weight 213.551384730803 BP Diastolic BP Location Tested BP Systolic [...] Weight in lbs Pre/Post Dialysis Refused Weight 210.594887059201 BP Diastolic BP Location Tested BP Systolic [...] Weight in lbs Pre/Post Dialysis Refused Weight 213.644470292382 BP Diastolic BP Location Tested BP Systolic [...] Weight in lbs Pre/Post Dialysis Refused Weight 215.857362061867 BP Diastolic BP Location Tested BP Systolic [...] Weight in lbs Pre/Post Dialysis Refused Weight 215.893408390016 BP Diastolic BP Location Tested BP Systolic [...] Weight in lbs Pre/Post Dialysis Refused Weight 218.087896545259 BP Diastolic BP Location Tested BP Systolic [...] Cervic Station 38 cm none trace Negative [place] Jacob trace Type Weight in lbs Pre/Post Dialysis Refused Weight 223.610089452183 BP Diastolic BP Location Tested BP Systolic [...] At Estimated Date of Delivery false Thalassemia (Greenlandic, Kazakh, Mediterranean, Or Background): MCV < 80 false Neural Tube Defect (Meningom yelocele, Spina Bifida, Or Anencephaly) false Congenital Heart Defect false Down Syndrome false Jacky-Sachs (eg, Rastafari, Cajun , Kosovan-Wallisian) false Ronald Disease false Sickle Cell Disease [...]
--- OUTSIDE RECORDS SUMMARY | 2025-05-16 04:55 | XMS_ITS | Encounter Summary ---
Author Organization [employer] [facility] Address [address] [place] [address] Care Team Providers Care Certified Phlebotomy Technician Name Role Phone Oskar Quezada NP Primary Care Provider [phone] Encounter Details Date Type Department Care Team (Latest Contact Info) Description 12/11/2001 Outpatient Historical HIS [facility] Sebastián Lynch MD [address] [place] [address] HEMATURIA (Primary Dx) Social History Tobacco Use Types Packs/Day Years Used Date Smoking Tobacco: Never Assessed Comments Unknown Sex and Gender Information Value Date Recorded Sex Assigned at Not on file 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
--- OUTSIDE RECORDS SUMMARY | 2025-05-16 04:55 | XMS_ITS | Encounter Summary ---
Author Organization [employer] [facility] Address [address] [place] [address] Care Team Providers Care Overhead Crane Inspector Name Role Phone Oskar Quezada NP Primary Care Provider Encounter Details Date Type Department Care Team (Latest Contact Info) Description 10/23/1998 Outpatient Historical HIS [facility] Sebastián Lynch MD [address] [place] [address] Acute upper respiratory infections of unspecified site (Primary Dx) Social History Tobacco Use Types Packs/Day Years Used Date Smoking Tobacco: Never Assessed Comments Unknown Sex and Gender Information Value Date Recorded Sex Assigned at Not on file 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
--- OUTSIDE RECORDS SUMMARY | 2025-05-16 04:55 | XMS_ITS | Encounter Summary ---
Author Organization [employer] [facility] Address [address] [place] [address] Care Team Providers Care Textiles Printer Name Role Phone Oskar Quezada NP Primary Care Provider Encounter Details Date Type Department Care Team (Latest Contact Info) Description 11/11/2000 Outpatient Historical HIS [facility] Sebastián Lynch MD [address] [place] [phone] Unspecified otitis media (Primary Dx) Social History Tobacco Use Types Packs/Day Years Used Date Smoking Tobacco: Never Assessed Comments Unknown Sex and Gender Information Value Date Recorded Sex Assigned at Not on file 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
--- OUTSIDE RECORDS SUMMARY | 2025-05-16 04:55 | XMS_ITS | Encounter Summary ---
Author Organization [employer] [facility] Address [address] [place] [address] Care Team Providers Care Software Trainer Name Role Phone Oskar Quezada NP Primary Care Provider Encounter Details Date Type Department Care Team (Latest Contact Info) Description 04/04/2000 Outpatient Historical HIS [facility] Sebastián Lynch MD [address] [place] [address] Anomal skull/face bones (Primary Dx) Social History Tobacco Use Types Packs/Day Years Used Date Smoking Tobacco: Never Assessed Comments Unknown Sex and Gender Information Value Date Recorded Sex Assigned at Not on file 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
--- OUTSIDE RECORDS SUMMARY | 2025-05-16 04:55 | XMS_ITS | Encounter Summary ---
Author Organization [employer] [facility] Address [address] [place] [address] Care Team Providers Care Spring Coverer Name Role Phone Oskar Quezada NP Primary Care Provider [phone] Encounter Details Date Type Department Care Team (Latest Contact Info) Description 07/02/2000 Outpatient Historical HIS [facility] Gautam Sawyer NO ADDRESS ON FILE Other and unspecified noninfectious gastroenteritis and colitis(558.9) (Primary Dx) Social History Tobacco Use Types Packs/Day Years Used Date Smoking Tobacco: Never Assessed Comments Unknown Sex and Gender Information Value Date Recorded Sex Assigned at Not on file 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
--- OUTSIDE RECORDS SUMMARY | 2025-05-16 04:55 | XMS_ITS | Encounter Summary ---
Author Organization [employer] [facility] Address [address] [place] [address] Care Team Providers Care Machine Tool Technician Instructor Name Role Phone Oskar Quezada NP Primary Care Provider Encounter Details Date Type Department Care Team (Latest Contact Info) Description 09/10/2001 Outpatient Historical [facility] Sebastián Lynch MD [address] [place] [address] INSECT BITE NEC (Primary Dx); Nonvenom arthropod bite Social History Tobacco Use Types Packs/Day Years Used Date Smoking Tobacco: Never Assessed Comments Unknown Sex and Gender Information Value Date Recorded Sex Assigned at Not on file 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
--- OUTSIDE RECORDS SUMMARY | 2025-05-16 04:55 | XMS_ITS | Encounter Summary ---
Author Organization [employer] [facility] Address [address] [place] [address] Care Team Providers Care Stock Ranch Supervisor Name Role Phone Oskar Quezada NP Primary Care Provider Encounter Details Date Type Department Care Team (Latest Contact Info) Description 02/23/2002 Outpatient Historical HIS [facility] Sebastián Lynch MD [address] [place] [address] SPRAIN NOS (Primary Dx) Social History Tobacco Use Types Packs/Day Years Used Date Smoking Tobacco: Never Assessed Comments Unknown Sex and Gender Information Value Date Recorded Sex Assigned at Not on file Legal 

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
--- OUTSIDE RECORDS SUMMARY | 2025-05-16 04:55 | XMS_ITS | Encounter Summary ---
Author Organization [employer] [facility] Address [address] [place] [address] Care Team Providers Care Stopper Setter Name Role Phone Oskar Quezada NP Primary Care Provider [phone] Encounter Details Date Type Department Care Team (Latest Contact Info) Description 11/17/2001 Outpatient Historical HIS [facility] Sebastián Lynch MD [address] [place] [address] URIN TRACT INFECTION NOS (Primary Dx) Social History Tobacco Use Types Packs/Day Years Used Date Smoking Tobacco: Never Assessed Comments Unknown Sex and Gender Information Value Date Recorded Sex Assigned at Not on file Legal Sex Female 5:49 AM 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
--- OUTSIDE RECORDS SUMMARY | 2025-05-16 04:55 | XMS_ITS | Encounter Summary ---
Author Organization [employer] [facility] Address [address] [place] [address] Care Team Providers Care Bed Worker Name Role Phone Oskar Quezada COOK COLD MEAT Primary Care Provider Encounter Details Date Type Department Care Team (Latest Contact Info) Description 02/26/2000 Outpatient Historical HIS [facility] Sebastián Lynch MD [address] [place] [phone] Acute pharyngitis (Primary Dx); Acute sinusitis, unspecified Social History Tobacco Use Types Packs/Day Years Used Date Smoking Tobacco: Never Assessed Comments Unknown Sex and Gender Information Value Date Recorded Sex Assigned at Not on file Legal Sex Female 5: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
--- OUTSIDE RECORDS SUMMARY | 2025-05-16 04:55 | XMS_ITS | Encounter Summary ---
Author Organization [employer] [facility] Address [address] [place] [address] Care Team Providers Care Media Production Manager Name Role Phone Oskar Quezada NP Primary Care Provider Encounter Details Date Type Department Care Team (Latest Contact Info) Description 02/12/1999 Outpatient Historical HIS [facility] Sebastián Lynch MD [address] [place] [address] Unspecified otitis media (Primary Dx); Impacted cerumen Social History Tobacco Use Types Packs/Day Years Used Date Smoking Tobacco: Never Assessed Comments Unknown Sex and Gender Information Value Date Recorded Sex Assigned at Not on file Legal Sex Female 5:49 AM DOWN FILLER Gender Identity Not on file Sexual Orientation Not on file documented as of this encounter Plan of Treatment Not on file documented as of this encounter Visit Diagnoses Diagnosis Unspecified otitis media- Primary Impacted cerumen documented in this encounter Care Teams Media Production Manager Relationship Specialty Start Date End Date Oskar Quezada NP PCP - General NURSE PRACTITIONER 02/17/13 documented as of this encounter
--- OUTSIDE RECORDS SUMMARY | 2025-05-16 04:55 | XMS_ITS | Encounter Summary ---
Author Organization [employer] [facility] Address [address] [place] [address] Care Team Providers Care Network Operations Lead Name Role Phone Oskar Quezada NP Primary Care Provider Encounter Details Date Type Department Care Team (Latest Contact Info) Description 11/17/1998 Outpatient Historical HIS [facility] Sebastián Lynch MD [address] [place] [address] Abdominal pain, unspecified site (Primary Dx); Diarrhea Social History Tobacco Use Types Packs/Day Years Used Date Smoking Tobacco: Never Assessed Comments Unknown Sex and Gender Information Value Date Recorded Sex Assigned at Not on file Legal Sex Female 5:49 AM STEREO OPERATOR Gender Identity Not on file Sexual Orientation Not on file documented as of this encounter Plan of Treatment Not on file documented as of this encounter Visit Diagnoses Diagnosis Abdominal pain, unspecified site- Primary Diarrhea documented in this encounter Care Teams Network Operations Lead Relationship Specialty Start Date End Date Oskar Quezada NP PCP - General NURSE PRACTITIONER 02/17/13 documented as of this encounter
--- OUTSIDE RECORDS SUMMARY | 2025-05-16 04:56 | XMS_ITS | Encounter Summary ---
Author Organization [employer] [facility] Address [address] [place] [address] Care Team Providers Care Funeral Home Manager Name Role Phone Oskar Quezada NP Primary Care Provider Encounter Details Date Type Department Care Team (Latest Contact Info) Description 06/19/1998 Outpatient Historical HIS [facility] Sebastián Lynch MD [address] [place] [phone] Unspecified otitis media (Primary Dx) Social History Tobacco Use Types Packs/Day Years Used Date Smoking Tobacco: Never Assessed Comments Unknown Sex and Gender Information Value Date Recorded Sex Assigned at Not on file Legal Sex Female 5:49 AM COMPOUNDER HELPER Gender Identity Not on file Sexual Orientation Not on file documented as of this encounter Plan of Treatment Not on file documented as of this encounter Visit Diagnoses Diagnosis Unspecified otitis media- Primary documented in this encounter Care Teams Funeral Home Manager Relationship Specialty Start Date End Date Oskar Quezada NP PCP - General NURSE PRACTITIONER 02/17/13 documented as of this encounter
--- OUTSIDE RECORDS SUMMARY | 2025-05-16 04:56 | XMS_ITS | Encounter Summary ---
Author Organization [employer] [facility] Address [address] [place] [address] Care Team Providers Care Mission Systems Engineer Name Role Phone Oskar Quezada NP Primary Care Provider Encounter Details Date Type Department Care Team (Latest Contact Info) Description 07/20/1998 Outpatient Historical HIS [facility] Sebastián Lynch MD [address] [place] [address] Bronchitis, not specified as acute or chronic (Primary Dx) Social History Tobacco Use Types Packs/Day Years Used Date Smoking Tobacco: Never Assessed Comments Unknown Sex and Gender Information Value Date Recorded Sex Assigned at Not on file Legal Sex Female 5:49 AM BRACELET MAKER NOVELTY Gender Identity Not on file Sexual Orientation Not on file documented as of this encounter Plan of Treatment Not on file documented as of this encounter Visit Diagnoses Diagnosis Bronchitis, not specified as acute or chronic- Primary documented in this encounter Care Teams Mission Systems Engineer Relationship Specialty Start Date End Date Oskar Quezada NP PCP - General NURSE PRACTITIONER 02/17/13 documented as of this encounter
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
--- OUTSIDE RECORDS SUMMARY | 2025-05-16 04:56 | XMS_ITS | Encounter Summary ---
Author Organization [employer] [facility] Address [address] [place] [address] Care Team Providers Care Diesel Powerplant Mechanic Helper Name Role Phone Oskar Quezada NP Primary Care Provider Encounter Details Date Type Department Care Team (Latest Contact Info) Description 07/27/2001 Outpatient Historical HIS [facility] Sebastián Lynch MD [address] [place] [address] URIN TRACT INFECTION NOS (Primary Dx) Social History Tobacco Use Types Packs/Day Years Used Date Smoking Tobacco: Never Assessed Comments Unknown Sex and Gender Information Value Date Recorded Sex Assigned at Not on file Legal Sex Female 5:49 AM TOPOGRAPHY TECHNICIAN Gender Identity Not on file Sexual Orientation Not on file documented as of this encounter Plan of Treatment Not on file documented as of this encounter Visit Diagnoses Diagnosis Urinary tract infection, site not specified- Primary documented in this encounter Care Teams Diesel Powerplant Mechanic Helper Relationship Specialty Start Date End Date Oskar Quezada NP PCP - General NURSE PRACTITIONER 02/17/13 documented as of this encounter
--- OUTSIDE RECORDS SUMMARY | 2025-05-16 04:56 | XMS_ITS | Encounter Summary ---
Author Organization [employer] [facility] Address [address] [place] [address] Care Team Providers Care Nozzle Cement Sprayer Helper Name Role Phone Oskar Quezada NP Primary Care Provider Encounter Details Date Type Department Care Team (Latest Contact Info) Description 09/22/2001 Outpatient Historical HIS [facility] Sebastián Lynch MD [address] [place] [address] URIN TRACT INFECTION NOS (Primary Dx) Social History Tobacco Use Types Packs/Day Years Used Date Smoking Tobacco: Never Assessed Comments Unknown Sex and Gender Information Value Date Recorded Sex Assigned at Not on file Legal Sex Female 5:49 AM DIRECTOR INFORMATION Gender Identity Not on file Sexual Orientation Not on file documented as of this encounter Plan of Treatment Not on file documented as of this encounter Visit Diagnoses Diagnosis Urinary tract infection, site not specified- Primary documented in this encounter Care Teams Nozzle Cement Sprayer Helper Relationship Specialty Start Date End Date Oskar Quezada NP PCP - General NURSE PRACTITIONER 02/17/13 documented as of this encounter
--- OUTSIDE RECORDS SUMMARY | 2025-05-16 04:56 | XMS_ITS | Continuity of Care Document ---
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 Payers Encounter Date Sequence Insurance Name Policy Number Policy Webster Covered Member ID Webster Member ID Guarantor Name 03/15/[address] [facility] (MEDICAID HMO) Chioma Gilliam [id number] Chioma Gilliam Notes Date Note Type Note [...] would prefer a . Willian Mead MD [address] [place] [address], [phone], [facility] 03/15/2025 16:28:35 OBGyn Episode Ob Episode Information Episode Created Date Number of Fetuses Patient Bloodtype Patient rh Status Prepregnancy Weight lbs Domestic Partner Domestic Partner Phone Father Name Combination Welder Status 10/05/19 25 1 A Positive Danis Link OPEN Fetus Data First Name Last Name Admitted to NICU Weight (g) Sex Living Outcome Pediatric Complications Fetus ID Race Codes Race Delivery Type [id number] Problems Problem Notes Planning on .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 Problem Name Start Date End Date Resolution Snomed Code Not e Multigravida 02/01/2025 [id number] Normal in multigravida 11/04/2024 [id number] Jasvir Calculation Initial Jasvir Date Initial Exam [...] Weight in lbs Pre/Post Dialysis Refused Weight 193.935591695299 BP Diastolic BP Location Tested BP Systolic [...] Weight in lbs Pre/Post Dialysis Refused Weight 195.606091018585 BP Diastolic BP Location Tested BP Systolic [...] Weight in lbs Pre/Post Dialysis Refused Weight 193.428495886567 BP Diastolic BP Location Tested BP Systolic [...] Weight in lbs Pre/Post Dialysis Refused Weight 199.248550114446 BP Diastolic BP Location Tested BP Systolic [...] Weight in lbs Pre/Post Dialysis Refused Weight 202.352111710645 BP Diastolic BP Location Tested BP Systolic BP Type 78 118 sitting Fetus Heart Rate Present A 148 Present Fetus Movement A Yes Comments occ mild abdominal pain, traci ma-face/ankles,nausea, headache Flowsheet Date 02/15/2025 Lockwood Score Blood Edema Fundus Height Fundus Units Glucose Ketones Leukocytes Nitrite Labor Signs Protein Cervic Dilation Cervic Effacement Cervic Station Type Weight in lbs Pre/Post Dialysis Refused Weight 206.474854246642 BP Diastolic BP Location Tested BP Systolic [...] Weight in lbs Pre/Post Dialysis Refused Weight 213.825091170750 BP Diastolic BP Location Tested BP Systolic [...] Weight in lbs Pre/Post Dialysis Refused Weight 210.000387201809 BP Diastolic BP Location Tested BP Systolic [...] Cervic Station 32 cm none 1+ Negative Midnight Jacob 1+ Type Weight in lbs Pre/Post Dialysis Refused Weight 213.571262059150 BP Diastolic BP Location Tested BP Systolic [...] Weight in lbs Pre/Post Dialysis Refused Weight 215.338876915902 BP Diastolic BP Location Tested BP Systolic BP Type 78 132 sitting Fetus Heart Rate Present A 156 Present Fetus Movement A Yes Comments increased vaginal pressure, pelvic pain, abdominal pain, back pain, cramping Flowsheet Date 04/26/2025 Lockwood Score Blood Edema Fundus Height Fundus Units Glucose Ketones Leukocytes Nitrite Labor Signs Protein Cervic Dilation Cervic Effacement Cervic Station none trace Negative Midnight Jacob trace Type Weight in lbs Pre/Post Dialysis Refused Weight 215.139982501172 BP Diastolic BP Location Tested BP Systolic [...] Weight in lbs Pre/Post Dialysis Refused Weight 218.040922463800 BP Diastolic BP Location Tested BP Systolic [...] Cervic Station 38 cm none trace Negative Midnight Jacob trace Type Weight in lbs Pre/Post Dialysis Refused Weight 223.600576671801 BP Diastolic BP Location Tested BP Systolic [...] At Estimated Date of Delivery false Thalassemia (Spanish, Kosovan, Mediterranean, Or Background): MCV < 80 false Neural Tube Defect (Meningom yelocele, Spina Bifida, Or Anencephaly) false Congenital Heart Defect false Down Syndrome false Jacky-Sachs (eg, Zoroastrianism, Cajun , Georgian-Bangladeshi) false Ronald Disease false Sickle Cell Disease [...]
--- OUTSIDE RECORDS SUMMARY | 2025-05-16 04:56 | XMS_ITS | Encounter Summary ---
Author Organization [employer] [facility] Address [address] [place] [address] Care Team Providers Care Store Sales Consultant Name Role Phone Oskar Quezada NP Primary Care Provider Encounter Details Date Type Department Care Team (Latest Contact Info) Description 1998 Outpatient Historical [facility] Sebastián Lynch MD [address] [place] [address] Acute upper respiratory infections of unspecified site (Primary Dx) Social History Tobacco Use Types Packs/Day Years Used Date Smoking Tobacco: Never Assessed Comments Unknown Sex and Gender Information Value Date Recorded Sex Assigned at Not on file Legal Sex 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
--- OUTSIDE RECORDS SUMMARY | 2025-05-16 04:56 | XMS_ITS | Continuity of Care Document ---
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 [id number] Willian Mead MD [facility] ([facility]) [address] [place] [address] 5 04/12/2025 16:22:08 04/23/2025 17:35:49 46671977 Z34.90 Multigravida 533971704 Z 34.83 16028625 Gestation period, 34 weeks 58628466 Z3A.34 4447380 Health Concerns Section Related Observation LastModified by Organization Detai ls LastModified Time None Recorded Concern Status LastModified by Organization Details LastModified Time None Recorded Payers Encounter Date Sequence Insurance Name Policy Number Policy Webster Covered Member ID Webster Member ID Guarantor Name 04/12/2025 1 [facility] (MEDICAID HMO) Chioma Gilliam [id number] Chioma Gilliam Notes Date Note Type Note [...] prefer a . Willian Mead MD [address] [place] [address], [phone], [facility], [facility] 04/22/2025 16:14:07 OBGyn Episode Ob Episode Information Episode Created Date Number of Fetuses Patient Bloodtype Patient rh Status Prepregnancy Weight lbs Domestic Partner Domestic Partner Phone Father Name Fisher Crab Status 10/05/19 25 1 A Positive Danis Link OPEN Fetus Data First Name Last Name Admitted to NICU Weight (g) Sex Living Outcome Pediatric Complications Fetus ID Race Codes Race Delivery Type [id number] Problems Problem Notes Planning on .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 Problem Name Start Date End Date Resolution Snomed Code Not e Multigravida 02/01/2025 064081403 Normal in multigravida 11/04/2024 [id number] Jasvir Calculation Initial Jasvir Date Initial Exam [...] Weight in lbs Pre/Post Dialysis Refused Weight 193.864935211410 BP Diastolic BP Location Tested BP Systolic [...] Weight in lbs Pre/Post Dialysis Refused Weight 195.604365772372 BP Diastolic BP Location Tested BP Systolic [...] Weight in lbs Pre/Post Dialysis Refused Weight 193.836140522021 BP Diastolic BP Location Tested BP Systolic [...] Weight in lbs Pre/Post Dialysis Refused Weight 199.038601953088 BP Diastolic BP Location Tested BP Systolic [...] Weight in lbs Pre/Post Dialysis Refused Weight 202.104438922998 BP Diastolic BP Location Tested BP Systolic BP Type 78 118 sitting Fetus Heart Rate Present A 148 Present Fetus Movement A Yes Comments occ mild abdominal pain, traci ma-face/ankles,nausea, headache Flowsheet Date 02/15/2025 Lockwood Score Blood Edema Fundus Height Fundus Units Glucose Ketones Leukocytes Nitrite Labor Signs Protein Cervic Dilation Cervic Effacement Cervic Station Type Weight in lbs Pre/Post Dialysis Refused Weight 206.943071153027 BP Diastolic BP Location Tested BP Systolic [...] Weight in lbs Pre/Post Dialysis Refused Weight 213.819810008269 BP Diastolic BP Location Tested BP Systolic [...] Weight in lbs Pre/Post Dialysis Refused Weight 210.469382119296 BP Diastolic BP Location Tested BP Systolic [...] Weight in lbs Pre/Post Dialysis Refused Weight 213.578569270565 BP Diastolic BP Location Tested BP Systolic [...] Weight in lbs Pre/Post Dialysis Refused Weight 215.921498349748 BP Diastolic BP Location Tested BP Systolic BP Type 78 132 sitting Fetus Heart Rate Present A 156 Present Fetus Movement A Yes Comments increased vaginal pressure, pelvic pain, abdominal pain, back pain, cramping Flowsheet Date 04/26/2025 Lockwood Score Blood Edema Fundus Height Fundus Units Glucose Ketones Leukocytes Nitrite Labor Signs Protein Cervic Dilation Cervic Effacement Cervic Station none trace Negative [place] Jacob trace Type Weight in lbs Pre/Post Dialysis Refused Weight 215.267937813155 BP Diastolic BP Location Tested BP Systolic [...] Weight in lbs Pre/Post Dialysis Refused Weight 218.066598350489 BP Diastolic BP Location Tested BP Systolic [...] Cervic Station 38 cm none trace Negative [place] Jacob trace Type Weight in lbs Pre/Post Dialysis Refused Weight 223.611909331008 BP Diastolic BP Location Tested BP Systolic [...] At Estimated Date of Delivery false Thalassemia (Azeri, [place] Citizen, Mediterranean, Or Background): MCV < 80 false Neural Tube Defect (Meningom yelocele, Spina Bifida, Or Anencephaly) false Congenital Heart Defect false Down Syndrome false Jacky-Sachs (eg, Orthodox, Cajun , [place] Islander) false Ronald Disease false Sickle Cell Disease [...]
--- OUTSIDE RECORDS SUMMARY | 2025-05-16 04:56 | XMS_ITS | Continuity of Care Document ---
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 Tested BP Systolic BP Type 78 118 sitting Fetus Heart Rate Present A 148 Present Fetus Movement A Yes Comments occ mild abdominal pain, traci ma-face/ankles,nausea, headache Flowsheet Date 02/15/2025 [place] Score Blood Edema Fundus Height Fundus Units Glucose Ketones Leukocytes Nitrite Labor Signs Protein Cervic Dilation Cervic Effacement Cervic Station Type Weight in lbs Pre/Post Dialysis Refused Weight 206.844324855513 BP Diastolic BP Location Tested BP Systolic [...] Weight in lbs Pre/Post Dialysis Refused Weight 213.432015558208 BP Diastolic BP Location Tested BP Systolic [...] Weight in lbs Pre/Post Dialysis Refused Weight 210.456462293561 BP Diastolic BP Location Tested BP Systolic [...] Cervic Station 32 cm none 1+ Negative Stoddard Jacob 1+ Type Weight in lbs Pre/Post Dialysis Refused Weight 213.216727697400 BP Diastolic BP Location Tested BP Systolic [...] Weight in lbs Pre/Post Dialysis Refused Weight 215.583517845917 BP Diastolic BP Location Tested BP Systolic BP Type 78 132 sitting Fetus Heart Rate Present A 156 Present Fetus Movement A Yes Comments increased vaginal pressure, pelvic pain, abdominal pain, back pain, cramping Flowsheet Date 04/26/2025 [place]wood Score Blood Edema Fundus Height Fundus Units Glucose Ketones Leukocytes Nitrite Labor Signs Protein Cervic Dilation Cervic Effacement Cervic Station none trace Negative Stoddard Jacob trace Type Weight in lbs Pre/Post Dialysis Refused Weight 215.451536557746 BP Diastolic BP Location Tested BP Systolic [...] Weight in lbs Pre/Post Dialysis Refused Weight 218.291211494336 BP Diastolic BP Location Tested BP Systolic [...] Cervic Station 38 cm none trace Negative Stoddard Jacob trace Type Weight in lbs Pre/Post Dialysis Refused Weight 223.233438266157 BP Diastolic BP Location Tested BP Systolic [...] At Estimated Date of Delivery false Thalassemia (Setswana, Danish, Mediterranean, Or Background): MCV < 80 false Neural Tube Defect (Meningom yelocele, Spina Bifida, Or Anencephaly) false Congenital Heart Defect false Down Syndrome false Jacky-Sachs (eg, Buddhist, Cajun , Congolese-[place]) false Ronald Disease false Sickle Cell Disease Or Trait () false Hemophilia Or Other Blood Disorders false Muscular Dystrophy false Cystic Fibrosis false Coats's Chorea false Intellectual Disability/Autism false If Yes, [...]
--- OUTSIDE RECORDS SUMMARY | 2025-05-16 04:56 | XMS_ITS | Encounter Summary ---
Author Organization [employer] [facility] Address [address] [place] [address] Care Team Providers Care Photographer Apprentice Lithographic Name Role Phone Oskar Quezada NP Primary Care Provider Encounter Details Date Type Department Care Team (Latest Contact Info) Description 10/20/2001 Outpatient Historical [facility] Sebastián Lynch MD [address] [place] [address] ACUTE PHARYNGITIS (Primary Dx); URIN TRACT INFECTION NOS; ACUTE TONSILLITIS Social History Tobacco Use Types Packs/Day Years Used Date Smoking Tobacco: Never Assessed Comments Unknown Sex and Gender Information Value Date Recorded Sex Assigned at Not on file Legal Sex Female 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
--- OUTSIDE RECORDS SUMMARY | 2025-05-16 04:56 | XMS_ITS | Encounter Summary ---
Author Organization [facility] Address [address] [place] [address] Care Team Providers Care Field Crop I Farmworker Name Role Phone Oskar Quezada NP Primary Care Provider Encounter Details Date Type Department Care Team (Latest Contact Info) Description 08/28/1998 Outpatient Historical [facility] Sebastián Lynch MD [address] [place] [address] Other and unspecified noninfectious gastroenteritis and colitis(558.9) (Primary Dx) Social History Tobacco Use Types Packs/Day Years Used Date Smoking Tobacco: Never Assessed Comments Unknown Sex and Gender Information Value Date Recorded Sex Assigned at Not on file 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
--- OUTSIDE RECORDS SUMMARY | 2025-05-16 04:56 | XMS_ITS | Encounter Summary ---
Author Organization [facility] Address [address] 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
--- OUTSIDE RECORDS SUMMARY | 2025-05-16 04:56 | XMS_ITS | Encounter Summary ---
Author Organization [employer] [facility] Address [address] [place] [address] Care Team Providers Care Athletic Director Name Role Phone Oskar Quezada NP Primary Care Provider Encounter Details Date Type Department Care Team (Latest Contact Info) Description 08/17/2001 Outpatient Historical [facility] Sebastián Lynch MD [address] [place] [address] INSECT BITE NEC (Primary Dx); MED EXAM NEC-ADMIN PURP Social History Tobacco Use Types Packs/Day Years Used Date Smoking Tobacco: Never Assessed Comments Unknown Sex and Gender Information Value Date Recorded Sex Assigned at Not on file Legal 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
[2025-05-16 06:02] LABS: Hematocrit 30.4 % (36-47); Hemoglobin 9.40 g/dL (11.27-16.99); Mean Corpuscular HGB Conc 30.9 g/dL (30-55); Mean Corpuscular Hemoglobin 23.6 pg (27-33); Mean Corpuscular Volume 76.2 fl (85-98); Nucleated Red Blood Cells % 0 %; Platelet Count 278 10^3/cmm (157-399); Red Blood Count 3.99 10^6/uL (3.85-5.65); White Blood Count 9.26 10^3/uL (3.29-11.43)
--- NOTE | 2025-05-16 06:46 | P.HP_ITS ---
Providers/Chief Complaint 2 Admitting Physician: Willian Mead MD HPI CHIEF COMMUNICATIONS OFFICER History of Present Illness Chioma Gutierrez is a 30 year old 5 para 3-0-1-3 female at 39 weeks estimated gestational age. She is presenting for a repeat section and bilateral tubal ligation. She is considering having a , but she was found to have a transverse position the baby at her last office visit. After discussing options, she elected to proceed with a repeat section. We discussed the risks of bleeding, infection, and damage to intra-abdominal organs. We also discussed the risks and alternatives to a tubal ligation. We discussed the risks of bleeding, infection, damage intra-abdominal organs associate with a tubal ligation as well. We also discussed a 1-200 chance becoming again despite a successful tubal ligation. She has no further questions and wishes to proceed. Her has been unremarkable. Her blood test did demonstrate a history of a hepatitis C infection which had resolved. Her HCV antibody was positive but her HCV RNA was negative. Otherwise her lab work has been relatively unremarkable. Her blood type is a positive. Her antibody screen is negative. She is rubella immune. She passed her 3-hour glucose screen. She was GBS negative. The remainder of her infectious disease profile was within normal limits. Present Details : 5 Para: 3 Review of Systems 2 General: Reports: 10 or more systems reviewed and unremarkable except in HPI and below Const: Reports: fatigue; Denies: fever(s) Eyes: Denies: change in vision Card: Denies: chest pain Musc: Reports: back pain Moise/Lymph: Denies: easy bruising Medications/Allergies Home Medications ?Medication ?Instructions ?Recorded ?Confirmed ?Last Taken ?Type famotidine 20 mg tablet 20 mg PO DAILY 05/16/2504/19 Unknown History Allergies Allergy/AdvReac Type Severity Reaction Status Date / Time No Known Allergies Allergy Verified 05/16/25 06:35 PFS CHIEF COMMUNICATIONS OFFICER 2 PFSH: Medical History Obesity (BMI 30.0-34.9) PTSD (post-traumatic stress disorder) Anxiety and depression Surgical History History of section Family History Mother Hypertension Thyroid disease Diabetes Father Diabetes Brother Diabetes Denies family history of Colon cancer Ovarian cancer Heart disease Hyperlipidemia Breast cancer Uterine cancer Stroke Social History Smoking and tobacco/nicotine status: never used tobacco/nicotine Substance/Drug Use: never History History History 2 5 Term 3 0 Miscarriages/Ectopic 1 Living Children 3 Vitals/I&O/Wt Last Vital Signs Pulse 110 H 05/16/25 05:31 BP 115/71 05/16/25 05:31 Weight last 48 hrs Weight 221 lb Physical Exam 2 Const: COMMON NORMALS: patient oriented x3 and alert HENMT: COMMON NORMALS: moist oral mucous membranes HEAD & SCALP: normal to inspection Chest: COMMONS NORMALS: normal inspection of the chest Resp: COMMON NORMALS: clear to auscultation bilaterally AUSCULTATION: clear to auscultation bilaterally Cardio: COMMON NORMALS: regular rate and regular rhythm RATE: regular rate RHYTHM: regular rhythm GI: INSPECTION: Yes normal to inspection and Yes other (Gravid) Extremity: COMMON NORMALS: normal to inspection GENERAL: Yes edema (Trace) Neuro: COMMON NORMALS: patient oriented x3, moves all extremities and no sensory deficits noted SENSORIUM/ORIENTATION: Yes alert Psych: COMMON NORMALS: mental status grossly normal Skin: COMMON NORMALS: no rashes or lesions noted GENERAL SKIN EXAM: no rashes or lesions noted Data 05/16/25 05:56 Results Labs OB ([facility]): 2 Obstetrics 10/18/24 Blood Type A Positive 09/23/24 Antibody Screen Pending Today Hct, (36-47) 30.4 % L Today Hgb, (11.27-16.99) 9.40 g/dL L Today Rho(D) Type Rh positive 09/23/24 Plt Count, (157-399) 278 10^3/cmm Today Ser , Semi-Qnt 27404.00 mIU/mL 10/17/24 HCG, Qual, (Negative) Positive H 09/23/24 A&P Assessment and plan 1. 39 weeks gestation of : We will proceed with a scheduled repeat section and bilateral tubal ligation. 2. Encounter for sterilization: 3. Malposition and malpresentation of fetus: 4. History of section: PDMP PDMP Reviewed: Not Reviewed Attestations 2 Medical Necessity Statement*: I anticipate routine and post care. Coding Level of Care Code Acute Code for Chg Fwd Diagnoses 39 weeks gestation of Z3A.39 Encounter for sterilization Z30.2 Malposition and malpresentation of fetus O32.9XX0 History of section Z98.891
[2025-05-16] MEDS: metoclopramide 5 mg/mL SDV 2 mL 10 MG IVP (06:48)
[2025-05-16] MEDS: citric acid-sodium citrate 30 mL UDC PO (06:52)
--- NOTE | 2025-05-16 06:55 | P.ANESUD_ITS ---
Pre-Anesthetic Update Pre-Anesthetic Assessment: Date of Surgery/Procedure: 05/16/25 Preop Alie gnosis: IUP with planned Proposed Procedure: Operation Date: 05/16/25 07:20 Proposed Procedures p Section Repeat(Not Applicable) - Willian Mead MD Any changes to Pre-Anesthetic Assessment?: No Last Intake: Intake Last Liquid Date 05/15/25 Last Liquid Time 22:15 Last Solid Date 05/15/25 Last Solid Time 19:00 Last Intake: 22:15 Labs Last 48hrs: Short CBC 05/16/25 Range/Units 05:56 WBC 9.26 (3.29-11.43) 10^ 3/uL Hgb 9.40 L (11.27-16.99) g/ dL Hct 30.4 L (36-47) % MCV 76.2 L (85-98) fl Plt Count 278 (157-399) 10^3/c mm Neut % (Auto) 73.3 % Neut # (Auto) 6.80 (1.8-7.7) 10^3/u L Blood Bank 05/16/25 05:56 Blood Type A Positive Rho(D) Type Rh positive Antibody Screen Negative Vitals: Pulse Rate 110 H 05/16/25 05:31 Pulse Rhythm Regular 05/16/25 04:57 Pulse Strength 3+ Normal 05/16/25 04:57 Respiratory Effort Spontaneous, Non- Labored, Easy 05/16/25 04:57 Respiratory Depth Normal 05/16/25 04:57 Respiratory Patter n Normal 05/16/25 04:57 Blood Pressure 115/71 05/16/25 05:31 Oxygen Delivery Me thod Room Air 05/16/25 05:39 Exam: Pre-Anes Outpt Exam: alert and oriented x 3
[2025-05-16] MEDS: BUPivacaine 0.5% INJ 30 mL INJECTION (07:54)
--- NOTE | 2025-05-16 08:19 | PM.OP ---
Operative Report Date of procedure: May 16, 2025 Pre-op diagnosis: 30-year-old 5 para 3-0-1-3 at 39 weeks estimated gestational age presenting for a repeat section and bilateral tubal ligation Post-op diagnosis: Status post low-transverse section Procedure done: Repeat low-transverse section and bilateral tubal ligation Specimens removed/disposition: 1. Male infant with a weight of 7 pounds 9 ounces and Apgars of 8 and 9 2. Placenta with a three-vessel cord delivered intact 3. Bilateral fallopian tube segments with the right segment being tagged Pathology: Bilateral fallopian tube segments with the right segment being tagged Surgeon: Willian Mead MD Anesthesia: Spinal Estimated blood loss: 500 Complications: None Procedure: The patient was brought back to the operating room where she was prepped and draped in usual sterile fashion. Anesthesia was found to be adequate. A lower transverse skin incision was then made with a #10 blade. I then dissected down to the underlying subcutaneous tissue until arriving at the prerectal fascia. The fascia was then nicked with the scalpel bilaterally. The fascial incisions were then carried laterally with Buenrostro scissors. Attention was then turned to the superior aspect of the incision which was grasped with kochers and tented up away from the underlying rectus abdominis muscles. The muscles were then dissected away from the fascia manually, and later with Buenrostro scissors. Attention was then turned to the inferior aspect of the incision, and the fascia was dissected away from the underlying muscle in similar fashion. The rectus abdominis muscles were then spread manually. The peritoneum was entered manually. Excellent visualization of the uterus was noted. A lower transverse uterine incision was then made with a #10 blade. Upon arriving at the intrauterine cavity, the uterine incision was then extended manually. The was noted to be in an asynclitic vertex position. The baby was delivered without difficulty. There was no meconium. There was no nuchal cord. The cord was cut and clamped. The baby was then handed to the waiting nurse. The placenta was removed intact. The uterus was externalized. The intrauterine cavity was cleansed of any remaining debris. The uterine incision was reapproximated in a single layer the first layer was performed with 0 Vicryl in a running locked stitch. Excellent hemostasis was noted. Attention was then turned to the right fallopian tube which was ligated, cut, and cauterized with 0 chromic in a modified [place] fashion. Attention was then turned to the left fallopian tube which was also ligated cut and cauterized in similar fashion. The uterus was replaced into the abdomen. The peritoneum was then irrigated with warm saline. I reexamined the uterine incision and found it to be hemostatic. The rectus abdominis muscles were then reapproximated using 0 Vicryl in a running stitch. The fascia was then reapproximated using 0 Vicryl in running stitch. The subcutaneous tissue was reapproximated using 0 Vicryl in a running stitch. The skin was reapproximated using kenisha. A sterile dressing was placed. All counts were correct x2. Both the mother and baby were in stable condition.
--- NOTE | 2025-05-16 08:35 | ANE.PACU2 ---
Inpatient post-anesthesia follow up: Airway intact: Yes Vital signs: Temperature 96.3 F Pulse Rate 85 Respiratory Rate 16 Blood Pressure 126/62 Pulse Oximetry 97 Oxygen Delivery Me thod Room Air Oxygen Flow Rate Fraction of Inspir ed Oxygen Hydration adequate: Yes Nausea and vomiting: No Pain level: 1 Mental status: Baseline
[2025-05-16] MEDS: diphenhydrAMINE 50 mg/mL SDV 1mL 25 MG IVP (10:24)
[2025-05-16] MEDS: ferrous sulfate EC 325 mg Tablet PO (18:12)
[2025-05-16] MEDS: HYDROcodone-acetaminophen 5-325 mg Tablet PO (18:13)
[2025-05-16 20:25] LABS: Hematocrit 29.9 % (36-47); Hemoglobin 9.20 g/dL (11.27-16.99); Mean Corpuscular HGB Conc 30.8 g/dL (30-55); Mean Corpuscular Hemoglobin 23.8 pg (27-33); Mean Corpuscular Volume 77.3 fl (85-98); Platelet Count 236 10^3/cmm (157-399); Red Blood Count 3.87 10^6/uL (3.85-5.65); White Blood Count 9.63 10^3/uL (3.29-11.43)
[2025-05-17] MEDS: HYDROcodone-acetaminophen 5-325 mg Tablet PO ×3 (01:32→13:05)
[2025-05-17 01:45] VITALS: BP 105/67; PULSE 100; RESP 16; TEMP 36.9; O2SAT 97
[2025-05-17] MEDS: PRENATAL VIT NO.130/IRON/FOLIC 1 EACH TABLET PO (04:26)
[2025-05-17 04:36] VITALS: BP 111/78; PULSE 99; RESP 16; TEMP 36.8; O2SAT 96
[2025-05-17] MEDS: ferrous sulfate EC 325 mg Tablet PO (09:08)
--- NOTE | 2025-05-17 11:36 | P.DS_ITS ---
Discharge Providers CIVIL ENGINEERING DESIGN DRAFTSPERSON Date of Admission: 05/16/25 04:44 Date of Discharge: 05/17/25 Attending Provider at Admission: Willian Mead MD Attending Provider at Discharge: Willian Mead MD Primary Care Provider: Joseph Archuleta MD Diagnoses at Discharge Discharge Diagnosis 1. 39 weeks gestation of : 2. Encounter for sterilization: 3. Malposition and malpresentation of fetus: 4. History of section: Hospital Course Hospital Course The patient presented to the hospital for a repeat section and bilateral tubal ligation. The and tubal ligation were unremarkable. Her course was also unremarkable. She passed gas and began eating regular food the same day as the procedure. She did have some pain problems the morning after the procedure which was resolved with hydrocodone. Her bleeding was within normal limits. Her pain was ultimately well-controlled. Her urine output was appropriate. There were no concerns. Information Peripartum Data: Delivery Method: Physical Exam Narrative: She is in no acute distress Lungs are clear auscultation bilaterally Her heart has a regular rate and rhythm Her fundus is below the umbilicus and firm Her dressing is clean, dry and intact Her extremities have trace edema Urinary Catheter Management: Beltrán Latex Free: Cath Placed During This Visit: yes, but has since been removed by the nurse Reason for Continuing Indwelling Catheter: Decision to DC Catheter Urinary Catheter Date of Insertion: 05/16/25 Urinary Catheter Time of Insertion: 07:20 Date Urinary Catheter Removed: 05/16/25 Time Urinary Catheter Discontinued: 21:20 History History History 5 Term 3 0 Miscarriages/Ectopic 1 Living Children 3 Discharge Data Studies Completed and Pending Pending at discharge Category Date Time Status Pathology: Surgical [PTH] Routine Pth 05/16/25 09:10 Received Laboratory Results WBC 9.63 10^3/uL (3.29-11.43) 05/16/25 20:10 RBC 3.87 10^6/uL (3.85-5.65) 05/16/25 20:10 Hgb 9.20 g/dL (11.27-16.99) L 05/16/25 20:10 Hct 29.9 % (36-47) L 05/16/25 20:10 MCV 77.3 fl (85-98) L 05/16/25 20:10 MCH 23.8 pg (27-33) L 05/16/25 20:10 MCHC 30.8 g/dL (30-55) 05/16/25 20:10 RDW 16.0 % (12.1-15.1) H 05/16/25 20:10 Plt Count 236 10^3/cmm (157-399) 05/16/25 20:10 MPV 10.1 fL (7.4-10.4) 05/16/25 20:10 Neut % (Auto) 73.3 % 05/16/25 05:56 Lymph % (Auto) 19.7 % 05/16/25 05:56 [place] % (Auto) 5.0 % 05/16/25 05:56 Eos % (Auto) 1.0 % 05/16/25 05:56 Baso % (Auto) 0.2 % 05/16/25 05:56 Neut # (Auto) 6.80 10^3/uL (1.8-7.7) 05/16/25 05:56 Lymph # (Auto) 1.8 10^3/uL (0.8-4.8) 05/16/25 05:56 [place] # (Auto) 0.5 10^3/uL (0.2-0.9) 05/16/25 05:56 Eos # (Auto) 0.1 10^3/uL (0.0-0.8) 05/16/25 05:56 Baso # (Auto) 0.0 10^3/uL (0.0-0.1) 05/16/25 05:56 Nucleated RBC % (auto) 0 % 05/16/25 05:56 Nucleated RBCs # 0.0 /100WBC 05/16/25 05:56 Blood Type A Positive 05/16/25 05:56 Rho(D) Type Rh positive 05/16/25 05:56 Antibody Screen Negative 05/16/25 05:56 Vitals Last Vital Signs Temp 98.3 F 05/17/25 04:36 Pulse 99 05/17/25 04:36 Resp 16 05/17/25 04:36 BP 111/78 05/17/25 04:36 Pulse Ox 96 05/17/25 04:36 O2 Del Method Room Air 05/17/25 04:36 Results Labs OB ([facility]): Obstetrics US 06/02/25 Blood Type A Positive 05/16/25 Antibody Screen Negative 05/16/25 Hct, (36-47) 29.9 % L 05/16/25 Hgb, (11.27-16.99) 9.20 g/dL L 05/16/25 Rho(D) Type Rh positive 05/16/25 Plt Count, (157-399) 236 10^3/cmm 05/16/25 Ser , Semi-Qnt 18625.00 mIU/mL 10/17/24 HCG, Qual, (Negative) Positive H 09/23/24 Discharge Plan Discharge Patient Disposition: Home Condition: Stable Prescriptions: New ibuprofen 800 mg Tablet 800 mg PO TID Qty: 45 0RF hydrocodone-acetaminophen 5-325 mg Tablet 1 tab PO Q6H PRN (Reason: Moderate To Severe Pain) Qty: 28 0RF docusate sodium 100 mg Capsule 100 mg PO BID Qty: 14 0RF Vitamin 27 mg iron- 800 mcg Tablet 1 tab PO DAILY Qty: 90 2RF Discontinued famotidine 20 mg tablet 20 mg PO DAILY Discharge Order = DC NOW: Discharge Order (Routine); Ordered 05/17/25 Ordered By: Willian Mead Referrals: Willian Mead MD [Physician, Family Practice] - 4-7 days Discharge Diet: Usual diet Discharge Activity: Limit activity as instructed Patient Instructions: Depression (DC), Opioid Safety (DC), Preeclampsia and Eclampsia After Delivery (GEN), Hemorrhage (DC), OB [facility], OB Discharge Report, OB Food/Drug Interaction Guide, Opioid Safety, OB Home Care, Patient Portal & [place] Instructions, Abnormal Bleeding Discharge Attestations CIVIL ENGINEERING DESIGN DRAFTSPERSON Time Spent in Discharge Care*: less than 30 min Time Spent in Smoking Cessation: Details of Smoking Cessation Education: Encouraged to stop vaping. We discussed risks to her and baby. Coding Level of Care Code Acute Code for Chg Fwd Diagnoses 39 weeks gestation of Z3A.39 Encounter for sterilization Z30.2 Malposition and malpresentation of fetus O32.9XX0 History of section Z98.891
[2025-05-17 12:00] VITALS: BP 117/77; PULSE 84; RESP 16; TEMP 37.1; O2SAT 98
[2025-05-17 15:02] VITALS: BP 118/83; PULSE 84; RESP 16; TEMP 37; O2SAT 98
== END 2025-05-17 15:05 | disposition home or self-care (01) | DRG 539 ==
PROVIDERS: Admitting Provider Family Medicine; PCP Family Medicine; Visit Provider Family Medicine
PROC: 10D00Z1 Extraction of Products of Conception, Low, Open Approach (ICD-10-PCS; CPT 59514; principal; 2025-05-16 07:00)
DX: O34.211 Maternal care for low transverse scar from previous cesarean delivery (principal); N85.8 Other specified noninflammatory disorders of uterus; Z3A.39 39 weeks gestation of pregnancy; Z37.0 Single live birth; Z30.2 Encounter for sterilization
CPT/HCPCS: 36415; 51702; 59025; 59409; 85025; 85027; 86850; 86900; 88302; J1200; J1885; J2274; J2371; J2405; J2590; J2765; J3010; J3490; J7030; J7121; J9999